=== PATIENT | male | born 1945 | race Caucasian/White ===

== ENCOUNTER 2017-07-30 14:22 | Emergency (ER) | payer MEDICARE, OTHER ==
[2017-07-30] MEDS ORDERED: cefTRIAXone(*) 1 GM in NS 0.9% 50 ML* 50 ML IVPB ONE (14:31)
[2017-07-30] MEDS ORDERED: NS 0.9% 1000 ML* 2,500 ML IV ONE (14:31)
[2017-07-30 14:58] LABS: ABS Basophils 0 10^3/ul (0-0.2); ABS Eosinophils 0.4 10^3/ul (0-0.6); ABS Lymphocytes 1.3 10^3/ul (1.0-4.8); ABS Monocytes 0.7 10^3/ul (0-0.8); ABS Neutrophils 5.2 10^3/ul (1.5-7.7); ABS Nucleated RBC 0 10^3/ul; Eosinophil % 5.1 % (0-6); Hematocrit 35 % (42-52); Hemoglobin 11.2 g/dl (14.0-18.0); Lymphocyte % 17.7 % (25-47); Mean Corpuscular HGB Conc 32 g/dl (31-36); Mean Corpuscular Hemoglobin 24 pg (27-31); Mean Corpuscular Volume 76 fL (80-94); Mean Platelet Volume 7 um3 (7.4-10.4); Nucleated Red Blood Cells % 0; Platelet Count 217 10^3/ul (150-450); Red Cell Distribution Width 16 % (10.5-15); White Blood Count 7.6 10^3/ul (3.5-10.8)
[2017-07-30 15:07] LABS: INR 0.94 (0.77-1.02)
[2017-07-30 15:19] LABS: EGFR Non-African American 61.7 (>60)
[2017-07-30] MEDS ORDERED: Iodixanol* (CONTRAST) 320 MG/ML 100 ML SDV IV ONE (15:23)
--- NOTE | 2017-07-30 15:30 | RAD ---
INDICATION: Weakness COMPARISON: None. TECHNIQUE: Single AP portable view of the chest was obtained. FINDINGS: Image quality is compromised due to the relative inferiority of a portable chest x-ray. The heart and mediastinum exhibit normal size and contour. There are symmetrically low lung volumes which could be due to poor inspiratory effort. There is no evidence of a large pleural effusion. Visualized bones are normal for the patient's age. IMPRESSION: No radiographic evidence for acute cardiopulmonary abnormality on this portable chest x-ray.
--- NOTE | 2017-07-30 16:03 | RAD ---
Indication: Confusion, weight gain. Contrast: Administered 100.4 ml of VISAPAQUE 320 mg/ml CT of the chest was performed after IV contrast administration. CT of the abdomen and pelvis was performed after IV contrast administration with no oral contrast administered. Inferior thyroid lobes are unremarkable. There is no mediastinal or hilar adenopathy. The heart demonstrates no pericardial effusion. The trachea and major bronchi appear patent. There is some atelectasis noted in the lingula. No pleural fluid is identified. Tiny 2 mm calcification is noted in the right lower lobe. No alveolar consolidation is noted. Degenerative changes of the thoracic spine is noted. There is no evidence of rib fracture is noted. CT of the abdomen and pelvis demonstrates the liver to be normal in size. No focal lesions or intrahepatic ductal dilatation is noted. The gallbladder demonstrates calcified gallstones. No pericholecystic fluid or wall thickening is noted. The common duct is not dilated. The pancreas is atrophic without evidence of mass or pancreatic ductal dilatation. The spleen is normal in size. No adrenal lesions are noted. The kidneys demonstrate no hydronephrosis. Small cortical cyst is noted in the right kidney measuring 13 mm. Retroperitoneal adenopathy is noted. Retroaortic left renal vein is noted. No aneurysmal dilatation of the abdominal aorta is noted. CT of the pelvis demonstrates no pelvic adenopathy. Urinary bladder, prostate and seminal vesicles are unremarkable. No hernias are noted. The appendix is visualized and is normal. The bony structures are otherwise unremarkable. IMPRESSION: Cortical cysts right kidney. Cholelithiasis without biliary duct dilatation. Otherwise unremarkable CT of the chest, abdomen and pelvis.
[2017-07-30 16:26] LABS: Urine Appearance Clear; Urine Blood 2+ (Negative); Urine Color Yellow; Urine Ketones Negative (Negative); Urine Protein Negative (Negative); Urine Specific Gravity 1.024 (1.010-1.030); Urine Urobilinogen Negative (Negative)
[2017-07-30 18:57] VITALS: BP 148/76
--- NOTE | 2017-08-06 15:13 | ED ---
Edmund Jacobs Jennifer, scribed for Nomi Enciso MD on 07/30/17 at 1504 . Abdominal Pain/Male - HPI Summary HPI Summary: The patient is a 71 year old male who was brought to the ED by EMS for abdominal pain. The patient was confused in the ED and was not a good historian. EMS stated the patient has gained 19 pounds this month. LEVEL 5 CAVEAT: HPI limited due to patient confusion. - History of Current Complaint Chief Complaint: EDAbdPain Stated Complaint: WEAKNESS Time Seen by Provider: 07/30/17 14:52 Hx Obtained From: EMS Hx From Patient Unobtainable Due To: Other - Confusion Onset/Duration: Still Present Severity Initially: Mild Severity Currently: None Pain Intensity: 0 Pain Scale Used: 0-10 Numeric Location: Diffuse Aggravating Factor(s): Nothing Alleviating Factor(s): Nothing Associated Signs And Symptoms: Positive: Other - Weight gain - Allergies/Home Medications Allergies/Adverse Reactions: Allergies Allergy/AdvReac Type Severity Reaction Status Date / Time levofloxacin Allergy Unknown Verified 07/30/17 14:31 Reaction Details fabric softener Allergy Unknown Uncoded 07/30/17 14:31 Reaction Details ivory soap Allergy Unknown Uncoded 07/30/17 14:31 Reaction Details Home Medications: Home Medications Acetaminophen [Acetaminophen Extra Strength] 1,000 mg PO Q8H PRN 07/30/17 [ History Confirmed 07/30/17] Aspirin EC Low Dose* [Ecotrin EC Low Dose 81 MG*] 81 mg PO DAILY 07/30/17 [ History Confirmed 07/30/17] Benztropine TAB* [Cogentin TAB*] 0.5 mg PO BID 07/30/17 [History Confirmed 07/30] Cholecalciferol TAB* [Vitamin D TAB*] 2,000 units PO QAM 07/30/17 [History Confirmed 07/30/17] CloZAPine TAB* 150 mg PO QAM 07/30/17 [History Confirmed 07/30/17] CloZAPine TAB* 300 mg PO BEDTIME 07/30/17 [History Confirmed 07/30/17] Esomeprazole(NF) [NEXium(NF)] 20 mg PO DAILY 07/30/17 [History Confirmed ] Furosemide TAB* [Lasix TAB*] 20 mg PO DAILY 07/30/17 [History Confirmed 07/30/17 ] Haloperidol Decanoate [Haloperidol Decanoate 100] 100 mg IM .EVERY 4 WEEKS 07/30 [History Confirmed 07/30/17] Insulin GLARGINE(*) [Lantus(*)] 18 units SUBCUT QAM 07/30/17 [History Confirmed 07/30/17] Levothyroxine TAB* [Synthroid TAB*] 100 mcg PO QAM 07/30/17 [History Confirmed 07/30/17] Lubiprostone 24 MCG CAP (NF) [Amitiza (NF)] 24 mcg PO BID 07/30/17 [History Confirmed 07/30/17] Polyethylene Glycol 3350* [Miralax*] 17 gm PO DAILY PRN 07/30/17 [History Confirmed 07/30/17] Pravastatin (NF) [Pravachol (NF)] 20 mg PO EVERY OTHER DAY 07/30/17 [History Confirmed 07/30/17] Senna/Docusate (NF) [Sennokot-S] 2 tab PO BID 07/30/17 [History Confirmed ] glipiZIDE TAB* [Glucotrol TAB*] 5 mg PO QPM 07/30/17 [History Confirmed 07/30/17 ] glipiZIDE TAB* [Glucotrol TAB*] 15 mg PO QAM 07/30/17 [History Confirmed ] lamoTRIgine TAB(*) [LaMICtal TAB(*)] 75 mg PO TID 07/30/17 [History Confirmed ] PMH/Surg Hx/FS Hx/Imm Hx Infectious Disease History: Unable to Obtain/Confirm Infectious Disease History: Denies: Traveled Outside the [place] in Last 30 Days - Family History Known Family History: Positive: Unknown - Social History Alcohol Use: None Substance Use Type: Reports: None Smoking Status (MU): Unknown if Ever Smoked - Additional Comments History Additional Comments: LEVEL 5 CAVEAT: PMH limited due to patient confusion. Review of Systems Positive: Abdominal Pain Positive: Other - Confused, incoherent speech All Other Systems Reviewed And Are Negative: Yes - Comments Additional Review of Systems Comments: LEVEL 5 CAVEAT: ROS limited due to incoherent speech. Physical Exam - Summary Physical Exam Summary: Constitutional: Well-nourished. (-) Distressed Skin: Warm, Dry HENT: Normocephalic; Atraumatic Eyes: Conjunctiva normal Neck: Musculoskeletal ROM normal neck. (-) JVD, (-) Stridor, (-) Tracheal deviation Cardio: Rhythm regular, rate normal, Heart sounds normal; Intact distal pulses; The pedal pulses are 2+ and symmetric. Radial pulses are 2+ and symmetric. (-) Murmur Pulmonary/Chest wall: (-) Respiratory distress, Rhonchi in left lower lung field. Abd: Soft, Abdomen is Diffusely tender. Distended abdomen. (-) Guarding, (-) Rebound Musculoskeletal: 1+ pitting edema. Lymph: (-) Cervical adenopathy LEVEL 5 CAVEAT: Physical Exam limited due to incoherent speech. Triage Information Reviewed: Yes Vital Signs On Initial Exam: Initial Vitals Temp Pulse Resp BP Pulse Ox 98.3 F 100 25 152/81 97 07/30/17 14:27 07/30/17 14:27 07/30/17 14:27 07/30/17 14:27 07/30/17 14:27 Vital Signs Reviewed: Yes Diagnostics - Vital Signs Vital Signs Temp Pulse Resp BP Pulse Ox 07/30/17 14:51 95 30 95 07/30/17 14:31 96 07/30/17 14:27 98.3 F 100 25 152/81 97 - Laboratory Lab Results: Lab Results 07/30/17 07/30/17 07/30/17 Range/Units 14:44 14:44 14:44 WBC 7.6 (3.5-10.8) 10^3/ul RBC 4.60 (4.0-5.4) 10^6/ul Hgb 11.2 L (14.0-18.0) g/dl Hct 35 L (42-52) % MCV 76 L (80-94) fL MCH 24 L (27-31) pg MCHC 32 (31-36) g/dl RDW 16 H (10.5-15) % Plt Count 217 (150-450) 10^3/ul MPV 7 L (7.4-10.4) um3 Neut % (Auto) 67.9 (38-83) % Lymph % (Auto) 17.7 L (25-47) % [place] % (Auto) 8.8 (1-9) % Eos % (Auto) 5.1 (0-6) % Baso % (Auto) 0.5 (0-2) % Absolute Neuts (auto) 5.2 (1.5-7.7) 10^3/ul Absolute Lymphs (auto) 1.3 (1.0-4.8) 10^3/ul Absolute Monos (auto) 0.7 (0-0.8) 10^3/ul Absolute Eos (auto) 0.4 (0-0.6) 10^3/ul Absolute Basos (auto) 0 (0-0.2) 10^3/ul Absolute Nucleated RBC 0 10^3/ul Nucleated RBC % 0 INR (Anticoag Therapy) 0.94 (0.77-1.02) APTT 59.5 H (26.0-36.3) seconds Sodium 136 (133-145) mmol/L Potassium 3.8 (3.5-5.0) mmol/L Chloride 102 (101-111) mmol/L Carbon Dioxide 28 (22-32) mmol/L Anion Gap 6 (2-11) mmol/L BUN 21 (6-24) mg/dL Creatinine 1.16 (0.67-1.17) mg/dL Est GFR ( Amer) 79.4 (>60) Est GFR (Non-Af Amer) 61.7 (>60) BUN/Creatinine Ratio 18.1 (8-20) Glucose 226 H (70-100) mg/dL Lactic Acid (0.5-2.0) mmol/L Calcium 9.4 (8.6-10.3) mg/dL Total Bilirubin 0.30 (0.2-1.0) mg/dL AST 17 (13-39) U/L ALT 17 (7-52) U/L Alkaline Phosphatase 115 H (34-104) U/L Troponin I 0.00 (<0.04) ng/mL B-Natriuretic Peptide ( - 100) pg/mL Total Protein 7.1 (6.4-8.9) g/dL Albumin 4.0 (3.2-5.2) g/dL Globulin 3.1 (2-4) g/dL Albumin/Globulin Ratio 1.3 (1-3) Urine Color Urine Appearance Urine pH (5-9) Ur Specific [place] (1.010-1.030) Urine Protein (Negative) Urine Ketones (Negative) Urine Blood (Negative) Urine Nitrate (Negative) Urine Bilirubin (Negative) Urine Urobilinogen (Negative) Ur Leukocyte Esterase (Negative) Urine WBC (Auto) (Absent) Urine RBC (Auto) (Absent) Urine Bacteria (Absent) Urine Glucose (Negative) 07/30/17 07/30/17 07/30/17 Range/Units 14:44 14:44 16:05 WBC (3.5-10.8) 10^3/ul RBC (4.0-5.4) 10^6/ul Hgb (14.0-18.0) g/dl Hct (42-52) % MCV (80-94) fL MCH (27-31) pg MCHC (31-36) g/dl RDW (10.5-15) % Plt Count (150-450) 10^3/ul MPV (7.4-10.4) um3 Neut % (Auto) (38-83) % Lymph % (Auto) (25-47) % [place] % (Auto) (1-9) % Eos % (Auto) (0-6) % Baso % (Auto) (0-2) % Absolute Neuts (auto) (1.5-7.7) 10^3/ul Absolute Lymphs (auto) (1.0-4.8) 10^3/ul Absolute Monos (auto) (0-0.8) 10^3/ul Absolute Eos (auto) (0-0.6) 10^3/ul Absolute Basos (auto) (0-0.2) 10^3/ul Absolute Nucleated RBC 10^3/ul Nucleated RBC % INR (Anticoag Therapy) (0.77-1.02) APTT (26.0-36.3) seconds Sodium (133-145) mmol/L Potassium (3.5-5.0) mmol/L Chloride (101-111) mmol/L Carbon Dioxide (22-32) mmol/L Anion Gap (2-11) mmol/L BUN (6-24) mg/dL Creatinine (0.67-1.17) mg/dL Est GFR ( Amer) (>60) Est GFR (Non-Af Amer) (>60) BUN/Creatinine Ratio (8-20) Glucose (70-100) mg/dL Lactic Acid 1.4 (0.5-2.0) mmol/L Calcium (8.6-10.3) mg/dL Total Bilirubin (0.2-1.0) mg/dL AST (13-39) U/L ALT (7-52) U/L Alkaline Phosphatase (34-104) U/L Troponin I (<0.04) ng/mL B-Natriuretic Peptide 20 ( - 100) pg/mL Total Protein (6.4-8.9) g/dL Albumin (3.2-5.2) g/dL Globulin (2-4) g/dL Albumin/Globulin Ratio (1-3) Urine Color Yellow Urine Appearance Clear Urine pH 6.0 (5-9) Ur Specific [place] 1.024 (1.010-1.030) Urine Protein Negative (Negative) Urine Ketones Negative (Negative) Urine Blood 2+ H (Negative) Urine Nitrate Negative (Negative) Urine Bilirubin Negative (Negative) Urine Urobilinogen Negative (Negative) Ur Leukocyte Esterase Trace H (Negative) Urine WBC (Auto) Trace(0-5/hpf) (Absent) Urine RBC (Auto) Trace(0-2/hpf) (Absent) Urine Bacteria Absent (Absent) Urine Glucose Negative (Negative) 07/30/17 Range/Units 18:50 WBC (3.5-10.8) 10^3/ul RBC (4.0-5.4) 10^6/ul Hgb (14.0-18.0) g/dl Hct (42-52) % MCV (80-94) fL MCH (27-31) pg MCHC (31-36) g/dl RDW (10.5-15) % Plt Count (150-450) 10^3/ul MPV (7.4-10.4) um3 Neut % (Auto) (38-83) % Lymph % (Auto) (25-47) % [place] % (Auto) (1-9) % Eos % (Auto) (0-6) % Baso % (Auto) (0-2) % Absolute Neuts (auto) (1.5-7.7) 10^3/ul Absolute Lymphs (auto) (1.0-4.8) 10^3/ul Absolute Monos (auto) (0-0.8) 10^3/ul Absolute Eos (auto) (0-0.6) 10^3/ul Absolute Basos (auto) (0-0.2) 10^3/ul Absolute Nucleated RBC 10^3/ul Nucleated RBC % INR (Anticoag Therapy) (0.77-1.02) APTT (26.0-36.3) seconds Sodium (133-145) mmol/L Potassium (3.5-5.0) mmol/L Chloride (101-111) mmol/L Carbon Dioxide (22-32) mmol/L Anion Gap (2-11) mmol/L BUN (6-24) mg/dL Creatinine (0.67-1.17) mg/dL Est GFR ( Amer) (>60) Est GFR (Non-Af Amer) (>60) BUN/Creatinine Ratio (8-20) Glucose (70-100) mg/dL Lactic Acid 1.2 (0.5-2.0) mmol/L Calcium (8.6-10.3) mg/dL Total Bilirubin (0.2-1.0) mg/dL AST (13-39) U/L ALT (7-52) U/L Alkaline Phosphatase (34-104) U/L Troponin I (<0.04) ng/mL B-Natriuretic Peptide ( - 100) pg/mL Total Protein (6.4-8.9) g/dL Albumin (3.2-5.2) g/dL Globulin (2-4) g/dL Albumin/Globulin Ratio (1-3) Urine Color Urine Appearance Urine pH (5-9) Ur Specific [place] (1.010-1.030) Urine Protein (Negative) Urine Ketones (Negative) Urine Blood (Negative) Urine Nitrate (Negative) Urine Bilirubin (Negative) Urine Urobilinogen (Negative) Ur Leukocyte Esterase (Negative) Urine WBC (Auto) (Absent) Urine RBC (Auto) (Absent) Urine Bacteria (Absent) Urine Glucose (Negative) Result Diagrams: 07/30/17 14:44 07/30/17 14:44 Lab Statement: Any lab studies that have been ordered have been reviewed, and results considered in the medical decision making process. - Radiology CXR Xray Interpretation: No Acute Changes - No radiographic evidence for acute cardiopulmonary abnormality on this portable chest x-ray. Dr. Enciso has reviewed this report. Radiology Interpretation Completed By: Radiologist - CT Chest/Abd/Pel CT CT Interpretation: No Acute Changes - Cortical cysts right kidney. Cholelithiasis without biliary duct dilatation. Otherwise unremarkable CT of the chest, abdomen and pelvis. Dr. Enciso has reviewed this report. CT Interpretation Completed By: Radiologist Re-Evaluation - Re-Evaluation First Eval Re-Evaluation Time: 17:30 Change: Improved Comment: Repeat abdominal exam showed non-tenderness when distractured. exam showed no testicular findings. Large stool burden on CT. Abdominal Pain Fem Course/Dx - Course Assessment/Plan: The patient is a 71 year old male who was brought to the ED by EMS for abdominal pain. The patient did not have coherent speech in the ED today. In the ED course the patient was given IV fluids and Rocephin. Bloodwork and Urinalysis were obtained. CXR was obtained. CT Chest/Abd/Pel showed Cortical cysts right kidney. Cholelithiasis without biliary duct dilatation. Otherwise unremarkable CT of the chest, abdomen and pelvis. Given the patients extensive leg edema and rhonchi, we will not administer sepsis fluids to him. Repeat abdominal exam showed non-tenderness when distracted. exam showed no testicular findings. Large stool burden on CT. The patient is diagnosed with constipation and urinary retention. Dr. Susu Zhu is at bedside and will coordinate his follow-up. The patient will have a bowel regimen and urology follow-up at [facility]. - Diagnoses Provider Diagnoses: Constipation, Urinary retention - Provider Notifications Discussed Care Of Patient With: Susu Zhu Time Discussed With Above Provider: 17:35 Instructed by Provider To: Other - Dr. Zhu will coordinate the patient's follow-up. Discharge - Discharge Plan Condition: Stable Disposition: HOME Patient Education Materials: Constipation (ED), Urinary Retention in Men (ED) Referrals: [facility] [Outside] Kevin Oh MD [Medical Doctor] - Bebeto Dumas MD [Medical Doctor] - Additional Instructions: Please follow your bowel regimen and follow up with Urology at [facility]. Return to the Emergency Department for any new or worsening symptoms. The documentation as recorded by the Edmund gold Jennifer accurately reflects the service I personally performed and the decisions made by , Nomi Enciso MD.
== END 2017-07-30 18:56 | disposition home or self-care (01) ==
LOC: ED 14:22
DX: K59.00 Constipation, unspecified (principal); R33.9 Retention of urine, unspecified; N28.1 Cyst of kidney, acquired; K80.80 Other cholelithiasis without obstruction; Z88.3 Allergy status to other anti-infective agents
CPT/HCPCS: 36415; 71045; 71260; 74177; 80053; 81003; 81015; 83605; 83880; 84484; 85025; 85610; 85730; 87040; 87077; 87086; 96374; 99284; J0696; Q9967

== ENCOUNTER 2018-11-11 08:45 | Inpatient (IN) | payer MEDICARE, MEDICAID ==
--- NOTE | 2018-11-11 10:30 | ED ---
Altered Mental Status - HPI Summary HPI Summary: Pt is a 72 y/o M presenting to the ED brought in by EMS with a chief complaint of altered mental status. LEVEL 5 CAVEAT: Pts full hx and physical are unobtainable d/t pts current mental status. He comes from [facility] who states that he has been out of his Clozapine sine 10/27, and yesterday they noticed he was more sleepy and out of it. They thought that he had aspirated d/ t vomiting yesterday. They deny any recent trauma and note that he has been more agitated. Home Medications Medication Instructions Recorded Confirmed Type Acetaminophen [Acetaminophen Extra 1,000 mg PO Q8H PRN 07/30/17 11/11/18 History Strength] Aspirin EC TAB* [Ecotrin EC Low 81 mg PO DAILY 07/30/17 11/11/18 History Dose 81 MG*] Benztropine TAB* [Cogentin TAB*] 0.5 mg PO BID 07/30/17 11/11/18 History Cholecalciferol TAB* [Vitamin D 2,000 units PO QAM 07/30/17 11/11/18 History TAB*] CloZAPine TAB* 150 mg PO QAM 07/30/17 11/11/18 History CloZAPine TAB* 300 mg PO BEDTIME 07/30/17 11/11/18 History Furosemide TAB* [Lasix TAB*] 20 mg PO DAILY 07/30/17 11/11/18 History Haloperidol Decanoate [Haloperidol 100 mg IM .EVERY 4 WEEKS 07/30/17 11/11/18 History Decanoate 100] Insulin GLARGINE(*) [Lantus(*)] 35 units SUBCUT BID 07/30/17 11/11/18 History Levothyroxine TAB* [Synthroid TAB*] 100 mcg PO QAM 07/30/17 11/11/18 History Lubiprostone 24 MCG CAP (NF) 24 mcg PO BID 07/30/17 11/11/18 History [Amitiza (NF)] Polyethylene Glycol 3350* 17 gm PO DAILY PRN 07/30/17 11/11/18 History [Miralax*] Pravastatin (NF) [Pravachol (NF)] 20 mg PO EVERY OTHER DAY 07/30/17 11/11/18 History Senna/Docusate (NF) [Sennokot-S] 2 tab PO BID 07/30/17 11/11/18 History lamoTRIgine TAB(*) [LaMICtal 75 mg PO TID 07/30/17 11/11/18 History TAB(*)] Bisacodyl SUPP* [Dulcolax Supp*] 1 supp ID DAILY PRN 11/11/18 11/11/18 History Ferrous Sulfate 1 tab PO DAILY 11/11/18 11/11/18 History Insulin Lispro [Humalog Daniel 12 units SUBCUT SEE INSTRUCTIONS 11/11/18 History Kwikpen] Magnesium Hydroxide [Milk of 30 ml PO Q4H PRN 11/11/18 11/11/18 History Magnesia] Omeprazole 20 mg PO DAILY 11/11/18 11/11/18 History Ondansetron TAB* [Zofran 4 MG Tab*] 4 mg PO Q12H PRN 11/11/18 11/11/18 History risperiDONE [Risperidone] 1 mg PO BID 11/11/18 11/11/18 History - History Of Current Complaint Chief Complaint: EDAltMentalStatus Stated Complaint: AMS PER EMS Time Seen by Provider: 11/11/18 09:30 Hx Obtained From: EMS Hx From Patient Unobtainable Due To: Altered Mental Status Onset/Duration: Still Present, Gradually Timing: Constant, Lasting Days Severity Initially: Moderate Severity Currently: Moderate Character: Confusion, Agitation Aggravating Factor(s): Unknown, Medication Change Alleviating Factor(s): Unknown Associated Signs And Symptoms: Positive: Vomiting. Negative: Recent Trauma - Allergies/Home Medications Allergies/Adverse Reactions: Allergies Allergy/AdvReac Type Severity Reaction Status Date / Time levofloxacin Allergy Unknown Verified 11/11/18 08:59 Reaction Details fabric softener Allergy Unknown Uncoded 11/11/18 08:59 Reaction Details ivory soap Allergy Unknown Uncoded 11/11/18 08:59 Reaction Details Home Medications: Home Medications Bisacodyl SUPP* [Dulcolax Supp*] 1 supp ID DAILY PRN 11/11/18 [History Confirmed 11/11/18] Ferrous Sulfate 1 tab PO DAILY 11/11/18 [History Confirmed 11/11/18] Insulin Lispro [Humalog Daniel Kwikpen] 12 units SUBCUT SEE INSTRUCTIONS [History Confirmed 11/11/18] Magnesium Hydroxide [Milk of Magnesia] 30 ml PO Q4H PRN 11/11/18 [History Confirmed 11/11/18] Omeprazole 20 mg PO DAILY 11/11/18 [History Confirmed 11/11/18] Ondansetron TAB* [Zofran 4 MG Tab*] 4 mg PO Q12H PRN 11/11/18 [History Confirmed 11/11/18] risperiDONE [Risperidone] 1 mg PO BID 11/11/18 [History Confirmed 11/11/18] PMH/Surg Hx/FS Hx/Imm Hx Previously Healthy: Yes Endocrine/Hematology History: Reports: Hx Diabetes Respiratory History: Reports: Hx Sleep Apnea Infectious Disease History: Unable to Obtain/Confirm Infectious Disease History: Denies: Traveled Outside the [place] in Last 30 Days - Family History Known Family History: Positive: Unknown - Social History Lives: [facility] Alcohol Use: None Alcohol Amount: unk 11/11/18 Hx Substance Use: No Substance Use Type: Reports: None Substance Use Comment - Amount & Last Used: k 11/11/18 Smoking Status (MU): Unknown if Ever Smoked Review of Systems - ROS Summary Review of Systems Summary: LEVEL 5 CAVEAT: Pts full hx and physical are unobtainable d/t pts current mental status Positive: Other - potential aspiration Positive: Vomiting Positive: Other - confusion, agitation All Other Systems Reviewed And Are Negative: No Physical Exam - Summary Physical Exam Summary: Appearance: Appears to be sleeping. Moans when extremities are moved and when abd is palpated. Wearing adult brief. Skin: Warm, color reflects adequate perfusion, dry. Erythema of L knee and anterior tibia on lateral side, [id number]. Head: Normal Head/Face inspection, atraumatic Eyes: Conjunctiva clear, pupils are pinpoint. ENT: Poor dentition, multiple missing teeth. Neck: Supple, no nodes, no JVD Respiratory: Lungs clear, no respiratory distress, snoring respirations, 99% SaO2 on room air Cardio: RRR, No murmur, pulses normal, brisk capillary refill Abdomen: Soft, nontender, non-distended, no rebound, no guarding, no masses. Bowel sounds: Present Musculoskeletal: Strength Intact/ROM intact, no calf tenderness, no edema. Psychological: Normal Neuro: Alert, muscle tone normal, no focal deficit Triage Information Reviewed: Yes Vital Signs On Initial Exam: Initial Vitals Pulse Pulse Ox 93 99 11/11/18 08:52 11/11/18 08:52 Vital Signs Reviewed: Yes Completion Of Physical Exam Limited Due To: Level 5 Diagnostics - Vital Signs Vital Signs Temp Pulse Resp BP Pulse Ox 11/11/18 09:51 81 100/57 98 11/11/18 09:21 84 92/64 98 11/11/18 09:00 89 98 11/11/18 08:53 96.1 F 90 20 108/64 100 11/11/18 08:52 93 99 - Laboratory Result Diagrams: 11/11/18 10:24 11/11/18 10:24 Lab Statement: Any lab studies that have been ordered have been reviewed, and results considered in the medical decision making process. - Radiology CXR Radiology Interpretation Completed By: Radiologist Summary of Radiographic Findings: No active cardiopulmonary disease is noted. ED physician has reviewed this report. - EKG 1020 Cardiac Rate: NL - 82 BPM EKG Rhythm: Sinus Rhythm EKG Comparison: Other - No prior to compare Summary of EKG Findings: An EKG at 1020 reveals a sinus rhythm of with 1st degree AV block (218), NORMAL IVCT, prolonged QTc. Q in leads 2 and 3 AVF. No acute changes. 1218 Cardiac Rate: NL - 75bpm EKG Rhythm: Sinus Rhythm ST Segment: Normal Ectopy: None Summary of EKG Findings: EKG at 1218 shows NSR at 75bpm with 1st degree AV block (210), nml IV CT, prolonged QTc, Q-waves in II, III, and aVF. No acute changes compared with EKG from 1020 this date. ED MD has reviewed and interpreted this report. Re-Evaluation - Re-Evaluation First Eval Re-Evaluation Time: 11:16 Change: Unchanged Comment: Pt's Troponin was a .63 during the labratory results. Dr. Graham requested having the lab verify the troponin levels. second eval Re-Evaluation Time: 12:20 Change: Unchanged Comment: The pt remains a level 5 caveat d/t AMS and current sleeping status. The pt will be admitted to [facility] [place]. Altered Mental Statu Course/Dx - Course Course Of Treatment: Pt is a 72 y/o M presenting to the ED brought in by EMS with a chief complaint of altered mental status. LEVEL 5 CAVEAT: Pts full hx and physical are unobtainable d/t pts current mental status. Pt comes from [facility] and has been out of his Clozapine since 10/27, and yesterday they noticed him be more agitated and confused. He also vomited yesterday and staff were concerned about aspiration. An EKG at 1020 reveals a sinus rhythm of with 1st degree AV block (218), NORMAL IVCT, prolonged QTc. Q in leads 2 and 3 AVF. No acute changes. CXR shows no active cardiopulmonary disease. The pt's first troponin is 0.63, and his second troponin was 0.69. Pts hematology shows WBC of 14.0, Hgb of 13.9. His INR is 1.15. His chemistry shows CO2 of 21, Anion gap of 15, AST of 9, Alkaline Phosphate of 118, and total Creatinine Kinase of 1075. His urine shows 1+ protein, 1+ leukocyte esterase, 3+ WBC, 2+ ketones, and present hyaline casts. All other lab work WNL. I spoke with Dr. Aguilar who will be accepting the pt to [facility] [place]. EKG at 1218 shows NSR at 75bpm with 1st degree AV block (210), nml IV CT, prolonged QTc, Q-waves in II, III, and aVF. No acute changes compared with EKG from 1020 this date. ED MD has reviewed and interpreted this report. - Diagnoses Provider Diagnoses: Altered mental status, Elevated troponin - Critical Care Time Critical Care Time: 30-74 min - 30minutes Discharge - Sign-Out/Discharge Documenting (check all that apply): Patient Departure - Discharge Plan Condition: Stable Disposition: ADMITTED TO [facility] Referrals: Monica Flores DO [Primary Care Provider] - - Attestation Statements Document Initiated by Scribe: Yes Documenting Scribe: Sandra Ansari Provider For Whom Errol is Documenting (Include Credential): Dr. Yue Graham MD. Scribe Attestation: Sandra Jacobs, anabellibed for Dr. Yue Graham MD. on 11/11/18 at 1431. Status of Scribe Document: Ready
[2018-11-11 10:47] LABS: ABS Monocytes 0.9 10^3/ul (0-0.8); ABS Neutrophils 12.1 10^3/ul (1.5-7.7); Hematocrit 42 % (42-52); Hemoglobin 13.9 g/dL (14.0-18.0); Lymphocyte % 7.2 %; Mean Corpuscular HGB Conc 33 g/dL (31-36); Mean Corpuscular Hemoglobin 28 pg (27-31); Mean Corpuscular Volume 86 fL (80-94); Mean Platelet Volume 7.4 fL (7.4-10.4); Platelet Count 278 10^3/uL (150-450); Red Blood Count 4.89 10^6 /uL (4.18-5.48); Red Cell Distribution Width 14 % (10.5-15)
[2018-11-11 10:51] LABS: INR 1.15 (0.82-1.09)
[2018-11-11 10:57] LABS: Troponin I 0.63 ng/mL (<0.04)
[2018-11-11 10:58] LABS: ALT 27 U/L (7-52); AST 49 U/L (13-39); Albumin 3.8 g/dL (3.2-5.2); Albumin/Globulin Ratio 1.3 (1-3); Alkaline Phosphatase 118 U/L (34-104); Anion Gap 15 mmol/L (2-11); BUN/Creatinine Ratio 16.8 (8-20); Blood Urea Nitrogen 19 mg/dL (6-24); CO2 Carbon Dioxide 21 mmol/L (22-32); Calcium 9.3 mg/dL (8.6-10.3); Chloride 105 mmol/L (101-111); Creatine Kinase 1075 U/L (10-223); EGFR African American 76.8 (>60); EGFR Non-African American 63.4 (>60); Glucose 83 mg/dL (70-100); Potassium 3.8 mmol/L (3.5-5.0); Sodium 141 mmol/L (135-145); Total Protein 6.8 g/dL (6.4-8.9)
[2018-11-11] MEDS ORDERED: NS 0.9% 1000 ML** 1,000 ML IV SCH ×2 (11:00→13:45)
[2018-11-11 11:04] LABS: Urine Appearance Clear; Urine Bacteria Absent (Absent); Urine Bilirubin Negative (Negative); Urine Blood Negative (Negative); Urine Color Amber; Urine Glucose Negative (Negative); Urine Ketones 2+ (Negative); Urine Nitrite Negative (Negative); Urine Protein 1+(30 mg/dL) (Negative); Urine Red Blood Cell Trace(0-2/hpf) (Absent); Urine Specific Gravity 1.023 (1.010-1.030); Urine Urobilinogen Negative (Negative); Urine White Blood Cell 3+(>20/hpf) (Absent)
[2018-11-11 11:21] LABS: Alcohol < 10 mg/dL (<10); Salicylate < 2.50 mg/dL (<30)
[2018-11-11 11:24] LABS: Urine Benzodiazepine Screen None Detected (None Detect); Urine Opiates Screen None Detected (None Detect)
[2018-11-11 11:38] LABS: Acetaminophen 1 mcg/mL
[2018-11-11 11:58] LABS: Troponin I 0.69 ng/mL (<0.04)
[2018-11-11] MEDS ORDERED: Acetaminophen TAB* 325 MG PO PRN (13:41)
[2018-11-11] MEDS: D5NS 0.9% 1000 ML BAG* 1,000 ML IV SCH (14:35)
--- NOTE | 2018-11-11 15:01 | HP ---
CC: Nati Stock * HISTORY AND PHYSICAL: DATE OF ADMISSION: 11/11/18 PROVIDER: Renetta Oropeza NP PRIMARY CARE PROVIDER: Nati Stock. ATTENDING PHYSICIAN WHILE IN THE HOSPITAL: Dr. Mustapha Aguilar * (dictated by Renetta Oropeza NP). CHIEF COMPLAINT: Altered mental status. HISTORY OF PRESENT ILLNESS: Mr. Bell is a 72-year-old male with a past medical history significant for anemia, bipolar disorder with severe manic psychotic features, dysphagia, hypertension, hypothyroid, generalized muscle weakness, seizures, history of urinary retention, urinary tract infections, GERD, legally blind and type 2 diabetes who currently resides at [facility]. The patient is lethargic and unable to answer questions. History of present illness was obtained from his senior care records in the ER chart. Per the senior care record, the patient has been taking Clozaril for several years and on 10/27/18, he ran out and was unable to get it filled due to the new laws for prescribers. Last night, the medication was available and the patient was given 300 mg, like his previous dose. Shortly after taking the medication, the patient fell asleep. It was reported that the patient had to be suctioned and that he has not been worse since taking the medication last evening. The patient's O2 saturations were down to 90% and at that time, he was placed on 2 L of nasal cannula. At baseline, it is reported from the senior care that he is alert and delusional. His Clozaril 300 mg was given at 21:57 last p.m. Vital signs at the senior care: Blood pressure was 88/64, heart rate was 82, temperature was 97.3, and respirations were 20. On arrival to the emergency room, the patient had routine lab work drawn. He was noted to be lethargic. care home denied any recent traumas, other than the patient had been more agitated. Routine lab work in the Emergency had shown leukocytosis with white count of 14,000 and an elevated troponin of 0.63. Due to his altered mental status and elevated troponin, we were asked to see and evaluate the patient for admission. PAST MEDICAL HISTORY: Significant for: 1. Anemia. 2. Bipolar disorder with severe manic psychosis. 3. Dysphagia. 4. History of hypertension. 5. Hypothyroid. 6. Muscle weakness. 7. Other seizures. 8. Urinary retention and history of urinary tract infections. 9. Antiphospholipid syndrome. 10. Constipation. 11. Gastroesophageal reflux. 12. Legally blind. 13. Hypercholesterolemia. 14. Type 2 diabetes. PAST SURGICAL HISTORY: Unknown. CURRENT MEDICATIONS: At [facility]: 1. Risperdal 1 mg twice daily. 2. Haloperidol 2 mg IM onetime order for severe agitation. 3. Clonazepam 150 mg p.o. in the morning, 300 mg at bedtime. 4. Zofran 4 mg p.o. q.12 hours as needed for nausea. 5. Ferrous sulfate 325 mg p.o. daily. 6. Humalog 12 units after meals, hold for p.o. intake less than 50%. 7. Lantus 35 units 2 times a day. 8. Synthroid 100 mcg daily. 9. Omeprazole 20 mg daily. 10. Lasix 20 mg daily. 11. Milk of Magnesia 30 mL q.4 hours as needed for constipation. 12. Haldol Decanoate solution 100 mg/mL 1 mL IM q.4 weeks on Saturday. 13. Amitiza 24 mcg 1 capsule 2 times a day. 14. Lamictal 75 mg 3 times a day for seizures. 15. Senna Plus 2 tabs 2 times a day. 16. Vitamin D 2000 units daily. 17. Pravachol 20 mg p.o. daily. 18. Tylenol 1000 mg every 8 hours as needed for pain. 19. Aspirin 81 mg p.o. daily. ALLERGIES: LEVOFLOXACIN, FABRIC SOFTENER, AND IVORY SOAP. FAMILY HISTORY: Unable to obtain due to mentation. SOCIAL HISTORY: The patient currently resides at [facility]. He does have an active MOLST form from his senior care chart which specifies DNR and DNI. REVIEW OF SYSTEMS: The patient is lethargic. Speech is garbled, at times he is able to make clear words. When asked about being admitted to the hospital, he responds, no clearly, but is unable to respond to other questioning. He has no grimacing with palpation of his abdomen. His skin is without rashes or lesions. The rest of the review of systems was unable to complete due to the patient's mentation. PHYSICAL EXAMINATION GENERAL: At this time, Mr. Bell is a 72-year-old male. He is lethargic, resting on the stretcher in the emergency room. His respirations are easy and even. He does withdraw to sternal rub and does swat at staff when repositioning in the bed. He does respond NO when ask if he has chest pain. He clear states NO when asked if he would want to have CPR, but then returns to a drowsy state. VITAL SIGNS: Blood pressure 110/72, heart rate 79, respirations 10, O2 saturation 97%, temperature was 96.1 on arrival. HEENT: Head is atraumatic, normocephalic. Eyes: EOMs are intact. Pupils are 1 mm and reactive to light. Mucous membranes are dry. NECK: Supple. CARDIAC: S1, S2, regular rate and rhythm. No murmurs, rubs, or gallops. LUNGS: Clear to auscultation bilaterally. No wheezes, rales, or rhonchi. ABDOMEN: Soft and nontender. Bowel sounds are present x4. EXTREMITIES: He can move all 4 extremities. There is no clubbing or cyanosis. He does have ecchymosis noted to his left knee with superficial abrasions. SKIN: He does have ecchymosis to the left knee with superficial abrasions. No signs of infection. The skin is without rashes or lesions. NEUROLOGIC: The patient is lethargic. He does respond to sternal rub with withdrawing. The patient has minimal response to questioning. Speech is garbled at times. Responses at times are inappropriate. DIAGNOSTIC STUDIES/LAB DATA: His CBC, WBCs are 14.0, RBCs 4.89, hemoglobin 13.9, hematocrit is 42, platelet count is 278. INR is 1.15, sodium 141, potassium 3.8, chloride 105, carbon dioxide is 21, anion gap was 15, BUN was 19 , creatinine 1.13, glucose was 83 on arrival; repeat glucose at 1420 was 60, lactic acid was 1. ASTs were 49, ALTs were 27, alkaline phosphatase was 118, CK was 1075. Initial troponin was 0.63, repeat 0.69, next repeat is pending. Urine was within normal limits with the exception to protein was 1+, ketones were 2+, leukocyte esterase was 1+, wbc's were 3+, and hyaline casts were present. Urine tox was within normal limits, salicylates were less than 2.50, and alcohol was less than 10. He had a chest x-ray, radiologist's impression: No active cardiopulmonary disease. He did have an electrocardiogram, which shows low voltage, sinus rhythm at a rate of 74. He has had inverted P and T waves in V1 that are nonspecific. ASSESSMENT AND PLAN: Mr. Bell is a 72-year-old male with a past medical history significant for diabetes, anemia, bipolar with severe manic episodes of dysphagia, hypertension, hypothyroid, seizures, gastroesophageal reflux disease , and type 2 diabetes who was sent to the emergency room from [facility] for altered mental status, lethargy. He will be admitted inpatient to the ICU for: 1. Altered mental status. I suspect this could be related to acute toxic metabolic encephalopathy, suspect this is due to Clozaril. The patient had been on Clozaril for a long period of time and it was abruptly stopped on , when he ran out of the medication at [facility]. The medication was resumed last p.m. 11/10/18 at his original dose of 300 mg. According to UpToDate , it is recommended when restarting Clozaril that the medication be started at 12.5 mg p.o. daily and then titrated up over a period of weeks. I suspect that given the patient was given 300 mg last p.m., it is contributing to his lethargy and altered mental status. Within the differential is also cerebrovascular accident or seizures. The patient does have a history of seizures, he could be postictal from seizures. I will get a CT of the brain and an EEG. If there are positive findings on the EEG or CT, I will consult neurology at that time. I have placed a consultation to psychiatry for recommendations on further medication management of the patient's severe bipolar disorder as he is on multiple meds for bipolar at baseline. 2. Diabetes. The patient is hypoglycemic in the emergency room with a blood sugar of 60. He is lethargic and unable to eat at this time. I am going to place him on D5 normal saline at 100 cc per hour. I will place him in the ICU with fingersticks q.1 hour until the patient's mentation improves and he is able to tolerate the diet. I am going to hold his Lantus and Humalog at this time due to his level of sedation. 3. Elevated troponin. The patient does have an elevated troponin and according to UpToDate, abruptly restarting Clozaril can experience symptoms of myocarditis or cardiomyopathy. He can also experience symptoms of chest pain, tachycardia, palpitations, dyspnea, fever, flu-like symptoms, hypotension, and EKG changes. According to UpToDate, when restarting Clozaril after interruption of greater than 2 days it is recommended. therapy must be reinitiated at 12.5 mg once or twice daily to minimize the risk of hypertension, bradycardia, and syncope. If the dose is well tolerated at that time, it can be increased more rapidly than the initial titration unless cardiopulmonary arrest occurred during the initial titration, then retitrate with extreme caution. I suspect that his elevated troponin could be possibly related to receiving the 300 mg dose of Clozaril last evening. Within the differential could be acute coronary syndrome or pericardial effusion. The patient did have an EKG in the emergency room that shows low voltage. There are no significant ST changes on his EKG of elevations or depressions. Given the fact that the use of Clozaril can cause myocarditis, cardiomyopathy, there is a possibility that his elevated troponin could be related to the increased dose of Clozaril. If the patient's CT of the brain does not show any acute hemorrhage and the troponins continue to rise I will place the patient on 1 mg/ kg Lovenox dosing every 12 hours and consult cardiology . I will continue to trend his troponins. I will repeat an EKG at 6 p.m. tonight and in the a.m., I will get a transthoracic echocardiogram to evaluate the heart function. 5. Hypothyroid. We will continue his Synthroid at 100 mcg. 6. History of seizures. The patient currently takes Lamictal 75 mg p.o. t.i.d. I will continue the Lamictal at 75 mg t.i.d when the patient is alert enough to swallow medications. 7. FEN. He can have a consistent carb diet when his mentation improves. At this time, I will leave him n.p.o. 8. Code status. He is a DNR and DNI according to MOLST form from [facility]. 9. DVT prophylaxis he will be placed on lovenox. TIME SPENT: Time spent on this admission was approximately 60 minutes, greater than half that time was spent at the bedside reviewing events leading thus far to his hospitalization, performing physical exam, and reviewing my plan of care. I have discussed this with my attending, Dr. Mustapha Aguilar; he is in agreement with my plan. RENETTA OROPEZA, ARCHANA [id number]/CPS #: [id number]/CPS #: [id number] INGRID
[2018-11-11 15:23] LABS: Troponin I 0.68 ng/mL (<0.04)
[2018-11-11 18:05] LABS: Troponin I 0.73 ng/mL (<0.04)
--- NOTE | 2018-11-11 19:24 | HP ---
HISTORY AND PHYSICAL: ADDENDUM: HISTORY OF PRESENT ILLNESS: Mr. Bell is a 72-year-old male with a past medical history significant for anemia, bipolar disorder with severe manic psychotic features, dysphagia, hypertension, hypothyroid, generalized muscle weakness, seizures, history of urinary retention, urinary tract infections, GERD, legally blind and type 2 diabetes who currently resides at [facility]. The patient is lethargic and unable to answer questions. History of present illness was obtained from his [place] [facility] records in the ER chart. Per the [place] [facility] record, the patient has been taking Clozaril for several years and on 10/27/18, he ran out and was unable to get it filled due to the new laws for prescribers. Last night, the medication was available and the patient was given 300 mg, like his previous dose. Shortly after taking the medication, the patient fell asleep. It was reported that the patient had to be suctioned and that he has not been worse since taking the medication last evening. The patient's O2 saturations were down to 90% and at that time, he was placed on 2 L of nasal cannula. At baseline, it is reported from the [place] [facility] that he is alert and delusional. His Clozaril 300 mg was given at 21:57 last p.m. Vital signs at the [place] [facility]: Blood pressure was 88/64, heart rate was 82, temperature was 97.3, and respirations were 20. On arrival to the emergency room, the patient had routine lab work drawn. He was noted to be lethargic. [facility] denied any recent traumas, other than the patient had been more agitated. Routine lab work in the Emergency had shown leukocytosis with white count of 14,000 and an elevated troponin of 0.63. Due to his altered mental status and elevated troponin, we were asked to see and evaluate the patient for admission. PAST MEDICAL HISTORY: Significant for: 1. Anemia. 2. Bipolar disorder with severe manic psychosis. 3. Dysphagia. 4. History of hypertension. 5. Hypothyroid. 6. Muscle weakness. 7. Other seizures. 8. Urinary retention and history of urinary tract infections. 9. Antiphospholipid syndrome. 10. Constipation. 11. Gastroesophageal reflux. 12. Legally blind. 13. Hypercholesterolemia. 14. Type 2 diabetes. PAST SURGICAL HISTORY: Unknown. CURRENT MEDICATIONS: At [facility]: 1. Risperdal 1 mg twice daily. 2. Haloperidol 2 mg IM onetime order for severe agitation. 3. Clonazepam 150 mg p.o. in the morning, 300 mg at bedtime. 4. Zofran 4 mg p.o. q.12 hours as needed for nausea. 5. Ferrous sulfate 325 mg p.o. daily. 6. Humalog 12 units after meals, hold for p.o. intake less than 50%. 7. Lantus 35 units 2 times a day. 8. Synthroid 100 mcg daily. 9. Omeprazole 20 mg daily. 10. Lasix 20 mg daily. 11. Milk of Magnesia 30 mL q.4 hours as needed for constipation. 12. Haldol Decanoate solution 100 mg/mL 1 mL IM q.4 weeks on Saturday. 13. Amitiza 24 mcg 1 capsule 2 times a day. 14. Lamictal 75 mg 3 times a day for seizures. 15. Senna Plus 2 tabs 2 times a day. 16. Vitamin D 2000 units daily. 17. Pravachol 20 mg p.o. daily. 18. Tylenol 1000 mg every 8 hours as needed for pain. 19. Aspirin 81 mg p.o. daily. ALLERGIES: LEVOFLOXACIN, FABRIC SOFTENER, AND IVORY SOAP. FAMILY HISTORY: Unable to obtain due to mentation. SOCIAL HISTORY: The patient currently resides at [facility]. He does have an active MOLST form from his [place] [facility] chart which specifies DNR and DNI. REVIEW OF SYSTEMS: The patient is lethargic. Speech is garbled, at times he is able to make clear words. When asked about being admitted to the hospital, he responds, no clearly, but is unable to respond to other questioning. He has no grimacing with palpation of his abdomen. His skin is without rashes or lesions. The rest of the review of systems was unable to complete due to the patient's mentation. PHYSICAL EXAMINATION GENERAL: At this time, Mr. Bell is a 72-year-old male. He is lethargic, resting on the stretcher in the emergency room. His respirations are easy and even. He does withdraw to sternal rub and does swat at staff when repositioning in the bed. VITAL SIGNS: Blood pressure 110/72, heart rate 79, respirations 10, O2 saturation 97%, temperature was 96.1 on arrival. HEENT: Head is atraumatic, normocephalic. Eyes: EOMs are intact. Pupils are 1 mm and reactive to light. Mucous membranes are dry. NECK: Supple. CARDIAC: S1, S2, regular rate and rhythm. No murmurs, rubs, or gallops. LUNGS: Clear to auscultation bilaterally. No wheezes, rales, or rhonchi. ABDOMEN: Soft and nontender. Bowel sounds are present x4. EXTREMITIES: He can move all 4 extremities. There is no clubbing or cyanosis. He does have ecchymosis noted to his left knee with superficial abrasions. SKIN: He does have ecchymosis to the left knee with superficial abrasions. No signs of infection. The skin is without rashes or lesions. NEUROLOGIC: The patient is lethargic. He does respond to sternal rub with withdrawing. The patient has minimal response to questioning. Speech is garbled at times. Responses at times are inappropriate. DIAGNOSTIC STUDIES/LAB DATA: His CBC, WBCs are 14.0, RBCs 4.89, hemoglobin 13.9, hematocrit is 42, platelet count is 278. INR is 1.15, sodium 141, potassium 3.8, chloride 105, carbon dioxide is 21, anion gap was 15, BUN was 19 , creatinine 1.13, glucose was 83 on arrival; repeat glucose at 1420 was 60, lactic acid was 1. ASTs were 49, ALTs were 27, alkaline phosphatase was 118, CK was 1075. Initial troponin was 0.63, repeat 0.69, next repeat is pending. Urine was within normal limits with the exception to protein was 1+, ketones were 2+, leukocyte esterase was 1+, wbc's were 3+, and hyaline casts were present. Urine tox was within normal limits, salicylates were less than 2.50, and alcohol was less than 10. He had a chest x-ray, radiologist's impression: No active cardiopulmonary disease. He did have an electrocardiogram, which shows low voltage, sinus rhythm at a rate of 74. He has had inverted P and T waves in V1 that are nonspecific. ASSESSMENT AND PLAN: Mr. Bell is a 72-year-old male with a past medical history significant for diabetes, anemia, bipolar with severe manic episodes of dysphagia, hypertension, hypothyroid, seizures, gastroesophageal reflux disease , and type 2 diabetes who was sent to the emergency room from [facility] for altered mental status, lethargy. He will be admitted inpatient to the ICU for: 1. Altered mental status. I suspect this could be related to acute metabolic toxic encephalopathy, likely due to Clozaril. The patient had been on Clozaril for a significant period of time and it was abruptly stopped on 10/27/18, when he ran out of the medication at [facility]. The medication was resumed last p.m. at his original dose of 300 mg. According to UpToDate, it is recommended when restarting Clozaril that the medication be started at 12.5 mg p.o. daily and then titrated up over a period of weeks. I suspect given the patient was given 300 mg last p.m., it is contributing to his lethargy and altered mental status. Within the differential is also cerebrovascular accident. I will get a CT of the brain and also within the differential could be seizures. As the patient does have a history of seizures, he could be postictal from seizures. I will get an EEG. If there are positive findings on the EEG or CT, I will consult neurology at that time. I have placed a consultation to psychiatry for recommendations on further medication management of the patient's severe bipolar disorder as he is on multiple meds for bipolar at baseline. 2. Diabetes. The patient is hypoglycemic in the emergency room with a blood sugar of 60. He is lethargic and unable to eat at this time. I am going to place him on D5 normal saline at 100 cc per hour. I will place him in the ICU with fingersticks q.1 hour until the patient's mentation improves and he is able to tolerate the diet. I am going to hold his Lantus and Humalog at this time due to his level of sedation. 3. Elevated troponin. The patient does have an elevated troponin and according to UpToDate, abruptly restarting Clozaril can experience symptoms of myocarditis or cardiomyopathy. He can also experience symptoms of chest pain, tachycardia, palpitations, dyspnea, fever, flu-like symptoms, hypotension, and EKG changes. According to UpToDate, when restarting Clozaril after interruption of greater than 2 days is recommended. 4. According to UpToDate, dosing interrupted for greater than 48 hours, therapy must be reinitiated at 12.5 mg once or twice daily to minimize the risk of hypertension, bradycardia, and syncope. If the dose is well tolerated at that time, it can be increased more rapidly than the initial titration unless cardiopulmonary arrest occurred during the initial titration, then retitrate with extreme caution. I suspect that his elevated troponin could be possibly related to receiving the 300 mg dose of Clozaril last evening. Within the differential could be acute coronary syndrome. The patient did have an EKG in the emergency room that shows low voltage. There are no significant ST changes on his EKG of elevations or depressions. Given the fact that the use of Clozaril can cause myocarditis, cardiomyopathy, there is a possibility that his elevated troponin could be related to the increased dose of Clozaril. Also within the differential is acute coronary syndrome. If the patient's CT of the brain does not show any acute hemorrhage, I will place the patient on 1 mg/kg Lovenox dosing every 12 hours. I will continue to trend his troponins. If his troponins continue to raise, I will consult cardiology. I will repeat an EKG at 6 p.m. tonight and in the a.m., I will get a transthoracic echocardiogram to evaluate the heart function. 5. Hypothyroid. We will continue his Synthroid at 100 mcg. 6. History of seizures. The patient currently takes Lamictal 75 mg p.o. t.i.d. I will continue the Lamictal at 75 mg t.i.d. 7. FEN. He can have a consistent carb diet when his mentation improves. At this time, I will leave him n.p.o. 8. Code status. He is a DNR and DNI. 9. DVT prophylaxis. . TIME SPENT: Time spent on this admission was approximately 60 minutes, greater than half that time was spent at the bedside reviewing events leading thus far to his hospitalization, performing physical exam, and reviewing my plan of care. I have discussed this with my attending, Dr. Mustapha Aguilar; he is in agreement with my plan. NISHANT COOL, FILM REPRODUCER [id number]/[facility] #: [id number] [facility]AN HOSPITALRiddhi
[2018-11-11] MEDS: Enoxaparin(*) 100 MG/ML SYR SUBCUT SCH (19:52)
[2018-11-11] MEDS ORDERED: Haloperidol INJ IV/IM* 5 MG/ML AMP IV SLOW PU PRN (20:29)
[2018-11-11 20:37] LABS: Troponin I 0.67 ng/mL (<0.04)
[2018-11-11 23:24] LABS: Troponin I 0.67 ng/mL (<0.04)
--- NOTE | 2018-11-12 00:15 | EEG ---
ELECTROENCEPHALOGRAPHY: DATE OF STUDY: 11/11/18 - ROOM #ICU-03 PATIENT OF: Renetta Oropeza NP CLINICAL PROBLEM: This is a 72-year-old man being evaluated for increased lethargy, agitation, and not being himself, following clozapine being running out. This study was done to rule out seizures. He has a history of bipolar disease, diabetes, and is legally blind. MEDICINES: Include acetaminophen. REPORT: With this patient awake, background cerebral activity consists of moderate amplitude posterior dominant 6 to 7 Hz rhythm, muscle movement artifact noted at times throughout this tracing. The patient never falls asleep. No epileptiform potentials, focal abnormalities, or major asymmetries of background were noted. CLINICAL IMPRESSION: This awake EEG is abnormal because of the diffuse slowing of background consistent with encephalopathy, but not specific as to etiology. [id number]/[facility] #: [id number] MTDD
[2018-11-12] MEDS ORDERED: Ziprasidone IM INJ* 20 MG/ML VIAL IM ONE (00:37)
[2018-11-12] MEDS: D5NS 0.9% 1000 ML BAG* 1,000 ML IV SCH (01:19)
[2018-11-12 05:25] LABS: ABS Lymphocytes 1.4 10^3/ul (1.0-4.8); ABS Monocytes 0.7 10^3/ul (0-0.8); ABS Neutrophils 6.6 10^3/ul (1.5-7.7); Hematocrit 40 % (42-52); Lymphocyte % 15.7 %; Mean Corpuscular HGB Conc 33 g/dL (31-36); Mean Corpuscular Hemoglobin 28 pg (27-31); Mean Corpuscular Volume 86 fL (80-94); Mean Platelet Volume 7.4 fL (7.4-10.4); Nucleated Red Blood Cells % 0.1; Platelet Count 281 10^3/uL (150-450); Red Blood Count 4.62 10^6 /uL (4.18-5.48); Red Cell Distribution Width 15 % (10.5-15); White Blood Count 8.8 10^3/uL (3.5-10.8)
[2018-11-12 05:43] LABS: BUN/Creatinine Ratio 15.3 (8-20); Blood Urea Nitrogen 15 mg/dL (6-24); CO2 Carbon Dioxide 22 mmol/L (22-32); Calcium 8.5 mg/dL (8.6-10.3); Cholesterol 155 mg/dL; EGFR African American 90.5 (>60); EGFR Non-African American 74.8 (>60); Glucose 73 mg/dL (70-100); HDL Cholesterol 31.5 mg/dL; LDL Cholesterol 97 mg/dL; Sodium 143 mmol/L (135-145); Triglycerides 133 mg/dL
[2018-11-12 05:48] LABS: CKMB ng/mL 14.8 ng/mL (0.6-6.3)
[2018-11-12 05:54] LABS: Chloride 112 mmol/L (101-111)
[2018-11-12 06:24] LABS: Anion Gap 9 mmol/L (2-11)
[2018-11-12] MEDS ORDERED: D10W 1000 ML BAG* 1,000 ML IV SCH (08:00)
[2018-11-12] MEDS: Enoxaparin(*) 100 MG/ML SYR SUBCUT SCH ×2 (08:34→22:54)
[2018-11-12] MEDS ORDERED: Magnesium Hydroxide LIQ* 30 ML UDC PO PRN (08:54)
[2018-11-12] MEDS ORDERED: Ondansetron TAB* 4 MG PO PRN (08:54)
[2018-11-12] MEDS ORDERED: Polyethylene Glycol 3350* 17 GM PACKET PO PRN (08:54)
[2018-11-12] MEDS ORDERED: Levothyroxine TAB* 100 MCG TAB PO SCH (09:00)
[2018-11-12] MEDS ORDERED: CMC:Pravastatin (NF) 20 MG TAB PO SCH (09:00)
[2018-11-12] MEDS: Benztropine TAB* 1 MG PO SCH ×2 (09:27→23:08)
[2018-11-12] MEDS: Pantoprazole TAB * 40 MG TAB PO SCH (09:30)
[2018-11-12] MEDS: Senna TAB PO SCH ×2 (09:30→23:07)
[2018-11-12] MEDS: Aspirin EC TAB* 81 MG TAB.EC PO SCH (09:31)
[2018-11-12] MEDS ORDERED: Potassium Chlor TAB* 20 MEQ TAB.ER PO ONE (09:36)
[2018-11-12] MEDS ORDERED: Insulin GLARGINE(*) 1 UNITS UNIT ONE (10:26)
[2018-11-12] MEDS: lamoTRIgine TAB(*) 25 MG PO SCH ×3 (10:30→23:06)
[2018-11-12] MEDS: CMC:Lubiprostone 24 MCG CAP (NF) PO SCH ×2 (10:31→23:05)
[2018-11-12] MEDS: risperiDONE TAB* 1 MG PO SCH ×2 (10:31→23:09)
[2018-11-12] MEDS: Insulin GLARGINE(*) 1 UNITS UNIT SUBCUT SCH ×2 (10:34→22:55)
[2018-11-12] MEDS: Insulin LISPRO* 1 UNITS UNIT SUBCUT SCH ×2 (12:05→16:47)
--- NOTE | 2018-11-12 14:03 | CONSULT ---
Consult Consult: Psychiatry attempted to assess Mr. Bell in ICU Room #3 this afternoon, however, he was clearly delirious and thrashing about his bed in protective mittens, unable to provide history. Psychiatry is aware of the situation with his clozapine and will take over the titration orders for this idiosyncratic antipsychotic. Will continue to follow. Await full consultation report once patient is able to participate more fully. Case discussed with attending, Dr. Pro.
[2018-11-12] MEDS ORDERED: Perflutren Lipid Microsphere* 3 ML VIAL ONE (14:41)
--- NOTE | 2018-11-12 15:30 | PN ---
Subjective Date of Service: 11/12/18 Interval History: HOSPITALIST PROGRESS NOTE Patient seen and examined at bedside. Care reviewed and d/w Kia Cummings RN. He is awake and agitated today. Has mittens on, but is trying to remove his monitor, O2 probe. Shouting unintelligible things, but when I asked if he wanted breakfast, he answer "Yes! Yes! Yes!". Family History: Unchanged from Admission Social History: Unchanged from Admission Past Medical History: Unchanged from Admission Objective Active Medications: Acetaminophen (Tylenol Tab*) 650 mg PO Q4H PRN PRN Reason: FEVER/PAIN Aspirin (Aspirin Ec Tab*) 81 mg PO DAILY [facility] Last Admin: 11/12/18 09:31 Dose: 81 mg Benztropine Mesylate (Cogentin Tab*) 0.5 mg PO BID [facility] Last Admin: 11/12/18 09:27 Dose: 0.5 mg Clozapine (Clozapine Tab*) 25 mg PO BEDTIME [facility] Docusate Sodium (Colace Cap*) 100 mg PO BID [facility] Enoxaparin Sodium (Lovenox(*)) 85 mg SUBCUT Q12H [facility] Last Admin: 11/12/18 08:34 Dose: 85 mg Insulin Glargine (Lantus(*)) 20 units SUBCUT BID [facility] Last Admin: 11/12/18 10:34 Dose: Not Given Insulin Human Lispro (Humalog*) 0 units SUBCUT AC [facility]; Protocol Last Admin: 11/12/18 12:05 Dose: 6 units Lamotrigine (Lamictal Tab(*)) 75 mg PO TID [facility] Last Admin: 11/12/18 14:51 Dose: 75 mg Levothyroxine Sodium (Synthroid Tab*) 100 mcg PO QAM [facility] Last Admin: 11/12/18 09:30 Dose: 100 mcg Lubiprostone (Amitiza (Nf)) 24 mcg PO BID [facility] Last Admin: 11/12/18 10:31 Dose: 24 mcg Magnesium Hydroxide (Milk Of Magnesia Liq*) 30 ml PO Q4H PRN PRN Reason: CONSTIPATION Ondansetron HCl (Zofran Tab*) 4 mg PO Q12H PRN PRN Reason: NAUSEA Pantoprazole Sodium (Protonix Tab*) 40 mg PO DAILY [facility] Last Admin: 11/12/18 09:30 Dose: 40 mg Polyethylene Glycol/Electrolytes (Miralax*) 17 gm PO DAILY PRN PRN Reason: CONSTIPATION Pravastatin Sodium (Pravachol (Nf)) 20 mg PO EVERY OTHER DAY [facility]; Protocol Last Admin: 11/12/18 10:30 Dose: 20 mg Risperidone (Risperdal*) 1 mg PO BID [facility] Last Admin: 11/12/18 10:31 Dose: 1 mg Senna (Senokot Tab*) 2 tab PO BID [facility] Last Admin: 11/12/18 09:30 Dose: 2 tab Vital Signs - 8 hr 11/12/18 11/12/18 11/12/18 08:00 09:00 10:00 Pulse Rate 76 75 94 Respiratory 17 18 19 Rate Blood Pressure 106/59 131/75 118/69 (mmHg) O2 Sat by Pulse 100 99 96 Oximetry 11/12/18 11:00 Pulse Rate 81 Respiratory 16 Rate Blood Pressure 139/85 (mmHg) O2 Sat by Pulse 97 Oximetry Oxygen Devices in Use Now: None Appearance: Elderly gentleman lying in bed in NAD, moving around. Eyes: No Scleral Icterus Ears/Nose/Mouth/Throat: Mucous Membranes Moist Neck: Trachea Midline Respiratory: Symmetrical Chest Expansion and Respiratory Effort, Clear to Auscultation Cardiovascular: RRR - Normal S1 and S2 Neurological: - - Alert and awake, oriented to self only, WATTS Result Diagrams: 11/12/18 05:04 11/12/18 08:54 Microbiology and Other Data: Microbiology 11/11/18 10:52 Urine Culture - Final Urine 11/11/18 15:50 Nasal Screen MRSA (PCR) - Final Nasal Mrsa Not Detected Assess/Plan/Problems-Billing Assessment: Mr Bell is a 72yo M with PMH of anemia, bipolar disorder with severe manic psychosis, dysphagia, HTN, hypothyroidism, seizure disorder, urinary retention with h/o UTI, antiphospholipid syndrome, GERD, HLD, type 2 DM, who presented to ED from [facility] with altered MS, likely secondary to Clozapine. - Patient Problems (1) Encephalopathy Comment: - Patient was off Clozapine for almost 2 weeks and medication was resumed 11/10 (full dose) and became very sedated. - Today he is alert and awake, oriented to self only, trying to remove IV and devices. - Will resume his usual meds and appreciated Psych input managing Clozapine. - CT brain was limited due to motion artifact, but showed no acute intracranial pathology. - EEG showed diffuse slowing compatible with encephalopathy. - Continue supportive care. (2) Elevated troponin Comment: - Could be secondary to demand ischemia, myocarditis associated with clozapine; but patient does have risk factors for CAD. - No c/o CP at this time. - EKG shows Q waves on inferior leads, but no acute ischemic changes. - Cardiology consult requested - will likely need echo and stress test when more stable. - Continue Lovenox for possible ACS. - Troponin trending down. (3) Type 2 diabetes mellitus Comment: - His glucose was on the lower side earlier, but his appetite is very good. He actually ate 2 breakfasts and glucose is trending up. - Resume Lantus and Lispro SS. (4) Hypothyroidism Comment: - Continue Levothyroxine. (5) Seizure disorder Comment: - Continue Lamictal. (6) Hypokalemia Comment: - Replete. (7) DVT prophylaxis Comment: - Lovenox. (8) DNR (do not resuscitate) Status and Disposition: Inpatient. Will transfer to medical floor, but will require safety monitor.
--- NOTE | 2018-11-12 19:14 | CONS ---
CC: Hospitalist Service; Physicians at [facility] * CARDIOLOGY CONSULTATION: DATE OF CONSULT: 11/12/18 REASON FOR CONSULT: Elevated troponins. CHIEF COMPLAINT: Altered mental status, not feeling himself. HISTORY OF PRESENT ILLNESS: Mr. Bell is a 72-year-old resident of [facility] and he has a history of bipolar disorder including severe manic psychotic features, see the admission H and P and Dr. Ram's psychiatric notes for details, but his psychiatric medication, Clozaril, ran out and it was for a couple of weeks and it was then resumed at the prior dose and after the first dose of this resumed medication, the patient fell asleep, but in reading reports it sounds like he became hypoxic, required oxygen, suctioning, and lethargic. It appears the medication led to respiratory depression and hypotension. The patient was sent here for evaluation. Troponins were performed in the emergency room and found to be elevated. The patient's mentation this morning is improved somewhat from admission and he did answer some of my questions. Although he denies ever having had chest pain , he denied feeling short of breath; however, when I asked him if he would be able to walk on a treadmill, he said, "Absolutely no way." I was unable to get a convincing answer regarding orthopnea and PND. PAST MEDICAL HISTORY: The patient has a past medical history of: 1. Bipolar disorder. 2. Type 2 diabetes. 3. Hyperlipidemia. 4. Obesity. 5. Antiphospholipid antibody syndrome. 6. Hypertension. 7. Hypothyroid. 8. Dysphagia. 9. Muscle weakness. 10. Seizures. 11. Urinary retention with urinary tract infections. 12. Constipation. 13. Blind. MEDICATIONS: Current inpatient medications include: 1. Tylenol p.r.n. 2. Aspirin 81 mg a day. 3. Cogentin 0.5 mg b.i.d. 4. Clozapine 25 mg q.h.s. 5. Colace. 6. Lovenox 85 mg q.12 hours. 7. Lantus insulin. 8. Humalog insulin. 9. Lamictal 75 mg t.i.d. 10. Synthroid 100 mcg a day. 11. Amitiza 24 mcg b.i.d. 12. Milk of Magnesia p.r.n. 13. Zofran p.r.n. 14. Protonix 40 mg a day. 15. Maalox p.r.n. 16. Pravachol 20 mg every other day. 17. Risperdal 1 mg b.i.d. 18. Senokot 2 tablets b.i.d. ALLERGIES: Include LEVOFLOXACIN, FABRIC SOFTENER, and IVORY SOAP. SOCIAL HISTORY: The patient is a resident of [facility]. I was unable to elicit smoking and drinking history due to his poor historical abilities. FAMILY HISTORY: Also unable to obtain. REVIEW OF SYSTEMS: Difficult. He admits that he is not feeling himself at all. Denies chest pain. Denies shortness of breath. Was eating breakfast, but really not able to obtain a comprehensive reliable history of present illness. PHYSICAL EXAMINATION: On exam, the patient is 5 feet 10 inches, weighs 190 pounds with a body mass index of 27. Vital signs were 118/69, pulse was 94, respiratory rate 19, oxygen saturation on room air 96%, temperature 98.2. General Appearance: Centripetally obese, older gentleman lying at 50 degrees. He was in the process of getting fed by an ICU aide. Psychologically, clearly impaired mentation at the time I saw him, but did answer questions and was intermittently cooperative. He was calm, although he would get animated answering some questions. Skin: Pale, consistent with lack of sun exposure, warm, and dry. No rashes. HEENT: Mucous membranes were moist. Neck without increased JVP. Breath sounds distant, but clear. He could not take deep breaths for me. Coronary: S1, S2 regular without appreciable murmurs. Abdomen : Rotund. No epigastric discomfort. Suboptimal exam for hepatomegaly. Lower Extremities: Were free of edema and warm. I did not appreciate bruits. DIAGNOSTIC STUDIES: EKG on arrival, 11/11/18, showed normal sinus rhythm, 82 beats a minute, QRS axis +30, first-degree A-V block, normal intraventricular conduction times and some nonspecific ST changes, corrected QT was prolonged at 501 msec. EKG this morning at 7 a.m. showed normal sinus rhythm, 76 beats a minute, QRS axis +30, first-degree A-V block, corrected QT interval 463 msec, ST- and T-wave morphology appears improved. LABORATORY DATA: White count on arrival 14; today 8.8, hemoglobin 13, hematocrit 40, platelets 281. INR 1.15. Sodium 143, potassium 3.3, chloride 112, bicarb 22, BUN 15, creatinine 0.98, glucose 225. Calcium 8.5. On arrival , AST mildly elevated at 49, ALT 27, CPK elevated at 1075. Troponins #1 of 0.63 , #2 of 0.67, #3 of 0.73, #4 of 0.68, #5 of 0.69, #6 of 0.63. LDL cholesterol on 11/12/18 was 97. Urine was positive for protein, ketones, leukocyte esterase. Urine culture, a few Enterobacteriaceae consistent with contamination. IMPRESSION: In summary, Alfredito Bell is a 72-year-old gentleman who presented with a change in mentation, evidence of respiratory suppression as well as hypotension on admission, probably related to medication adjustments as documented in the history of present illness with mild elevation of troponins. He has atherosclerotic risk factors of diabetes, dyslipidemia, centripetal obesity, hypertension. The patient's CPK is elevated as well, but this is most likely noncardiac based on the troponin levels and there would be a differential of some sort of myopathy, but statins could also be contributing or causing. With the patient's elevated troponins and atherosclerotic risks, it is not practical to do any sort of stress test. He is unable to walk and would not be able to walk or cooperate with a chemical stress test at this time. I would recommend getting a chemical stress test in the future if it would be acted on, i.e., if he is felt to be an interventional candidate. If he is not felt to be an interventional candidate, as he has not had anginal symptoms, I would optimize risk factor modification, optimizing hypertension, diabetes, lipids to ensure there is no hypoxia or sleep apnea contributing. This is possibly a type 2 or demand ischemia based on the acute events of his respiratory suppression and hypotension. For the elevated CPK, past records may be required, but you could consider a statin holiday or wider pulsing of his statin, but it sounds like this is not a newly diagnosed issue and his primary care team may have additional history in this area. Additional recommendations will be made pending his clinical course and ability to cooperate for exams (the patient declined an echocardiogram earlier; if he is able to cooperate with this in the future, I would recommend proceeding). Thank you for allowing me to assist in this nice and complex gentleman's care. [id number]/[facility] #: [id number] [facility]
--- NOTE | 2018-11-12 20:28 | ECHO ---
*[facility]* [place] [address] Fax #: [phone] Transthoracic Echocardiogram Patient: Alfredito Bell Height: 70 in / 177.8 cm : 1945 Weight: 189.6 lb / Study Date: 11/12/2018 86.2 kg Age: 72 BP: 137 / 70 Gender: M BMI/BSA: 27.3 kg/m^2 / HR: 79 bpm 2.04 m^2 *Circular Distributor: * Comfort Santiago RDCS RN *Referring Physician: * Renetta Oropeza *Reading Physician: * Angela Man MD Indications: Abnormal EKG. History: Bipolar disorder. Anemia. Thyroid disease. Seizure disorder. Risk factors: Hypertension. Diabetes mellitus. Dyslipidemia. Conclusions Summary: 1. Left ventricle: The cavity size is normal. Wall thickness is mildly to moderately increased. The estimated ejection fraction is 50-55%. 2. Right ventricle: Systolic function is normal. 3. Mitral valve: There is trace to mild regurgitation. 4. Aortic valve: The annulus is mildly calcified. The valve is trileaflet. The leaflets are mildly thickened. 5. No prior echocardiogram to compare. Study data: Transthoracic echocardiogram. Procedure: Transthoracic echocardiography was performed. The study was technically limited due to poor acoustic window availability and difficult positioning. The patient was unable to follow instructions. Intravenous Definity 3 ml was administered. Image enhancement administered by Salvador Lea RN and Jose Verdugo RN. Complete 2D, spectral Doppler, and color flow Doppler. Patient status: Inpatient. Patient room number: ICU 3. Rhythm: Normal sinus rhythm. Findings Left ventricle: The cavity size is normal. Wall thickness is mildly to moderately increased. The estimated ejection fraction is 50-55%. Regional wall motion abnormalities cannot be excluded, septal dysychrony. There is no consistent Doppler evidence of clinically significant diastolic dysfunction. Right ventricle: Not well visualized. The cavity size is normal. Systolic function is normal. Left atrium: The atrium is normal in size. Right atrium: Not visualized. Mitral valve: The leaflets are mildly thickened. There is no evidence of stenosis. There is trace to mild regurgitation. Aortic valve: The annulus is mildly calcified. The valve is trileaflet. The leaflets are mildly thickened. There is no evidence of stenosis. There is no regurgitation. Tricuspid valve: Not well visualized. There is no evidence of stenosis. There is trace regurgitation. Pulmonic valve: Not well visualized. There is no evidence of stenosis. There is no significant regurgitation. Aorta: Aortic root: The aortic root is not dilated. Ascending aorta: The ascending aorta is not dilated. Aortic arch: The aortic arch is not dilated. Pericardium: A pericardial fat pad is present. There is no significant pericardial effusion. Pulmonary arteries: Not well visualized. Systemic veins: Not visualized. Measurements Left ventricle Value Ref Aortic valve Value Ref JEISON, LAX (L) 3.9 cm 4.2 - Saad diam, ED 2.1 cm ---- 5.8 Peak v, S 1.15 m/sec ---- ESD, LAX 2.5 cm 2.5 - VTI, S 19.2 cm ---- 4.0 Mean grad, S 2.0 mm Hg ---- FS, LAX 36 % 25 - 43 Peak grad, S 5.0 mm Hg ---- PW, ED, LAX (H) 1.2 cm 0.6 - LVOT/AV, VTI ratio 0.73 ---- 1.0 IVS/PW, ED 1.06 -------- Mitral valve Value Ref E', lat saad, TDI (L) 5.1 cm/sec >=10.0 Peak E 0.78 m/sec --- - E/e', lat saad, TDI 15 -------- Peak A 1.09 m/sec ---- E', med saad, TDI (L) 4.0 cm/sec >=7.0 Decel time 275 ms --- - E/e', med saad, TDI 19 -------- Peak grad, D 2.4 mm Hg ---- E', avg, TDI 4.6 cm/sec -------- Peak E/A ratio 0.7 ---- E/e', avg, TDI (H) 17 <=14 Pulmonic valve Value Ref LVOT Value Ref Peak v, S 1.35 m/sec ---- Peak hunter, S 0.79 m/sec -------- Peak grad, S 7.0 mm Hg ---- VTI, S 14.0 cm -------- Mean grad, S 1 mm Hg -------- Aortic root Value Ref Root diam 3.4 cm <4.2 Ventricular septum Value Ref IVS, ED (H) 1.3 cm 0.6 - Ascending aorta Value Ref 1.0 AAo AP diam, S 3.4 cm ---- Right ventricle Value Ref Aortic arch Value Ref JEISON, LAX 2.6 cm -------- Arch diam 3.1 cm ---- Left atrium Value Ref Decending aorta Value Ref ML dim, A4C 3.2 cm -------- Tera peak hunter 0.55 m/sec ---- SI dim, A4C 4.1 cm -------- Vol/bsa, ES, 1-p 13 ml/m^2 12 - 37 A4C Vol/bsa, ES, A/L (L) 13 ml/m^2 16 - 34 Legend: (L) and (H) ramesh values outside specified reference range. Prepared and electronically signed by Angela Man MD 11/12/2018 20:28
[2018-11-12] MEDS ORDERED: CloZAPine TAB* 25 MG TAB PO SCH ×2 (21:00)
[2018-11-13] MEDS ORDERED: Levothyroxine TAB* 100 MCG TAB PO SCH (06:00)
[2018-11-13] MEDS: Insulin LISPRO* 1 UNITS UNIT SUBCUT SCH ×3 (08:00→13:20)
[2018-11-13] MEDS: CMC:Lubiprostone 24 MCG CAP (NF) PO SCH (08:30)
[2018-11-13] MEDS: Aspirin EC TAB* 81 MG TAB.EC PO SCH (08:30)
[2018-11-13] MEDS: Senna TAB PO SCH (08:31)
[2018-11-13] MEDS: lamoTRIgine TAB(*) 25 MG PO SCH (08:34)
[2018-11-13] MEDS: Pantoprazole TAB * 40 MG TAB PO SCH (08:35)
[2018-11-13] MEDS: Benztropine TAB* 1 MG PO SCH (08:35)
[2018-11-13] MEDS: risperiDONE TAB* 1 MG PO SCH (08:36)
[2018-11-13] MEDS: Enoxaparin(*) 100 MG/ML SYR SUBCUT SCH (08:38)
[2018-11-13] MEDS: Insulin GLARGINE(*) 1 UNITS UNIT SUBCUT SCH (08:38)
[2018-11-13] MEDS ORDERED: Docusate CAP* 100 MG PO SCH (09:00)
--- NOTE | 2018-11-13 09:00 | PN ---
Subjective Date of Service: 11/13/18 Interval History: f/u unresponsive episode, abnormal troponin Resting comfortably Not conversing this morning tele no arrhythmias Medications Active Medications: Acetaminophen (Tylenol Tab*) 650 mg PO Q4H PRN PRN Reason: FEVER/PAIN Aspirin (Aspirin Ec Tab*) 81 mg PO DAILY [facility] Last Admin: 11/13/18 08:30 Dose: 81 mg Benztropine Mesylate (Cogentin Tab*) 0.5 mg PO BID [facility] Last Admin: 11/13/18 08:35 Dose: 0.5 mg Clozapine (Clozapine Tab*) 25 mg PO BEDTIME [facility] Last Admin: 11/12/18 23:09 Dose: 25 mg Docusate Sodium (Colace Cap*) 100 mg PO BID [facility] Last Admin: 11/13/18 08:36 Dose: 100 mg Enoxaparin Sodium (Lovenox(*)) 85 mg SUBCUT Q12H [facility] Last Admin: 11/13/18 08:38 Dose: 85 mg Insulin Glargine (Lantus(*)) 20 units SUBCUT BID [facility] Last Admin: 11/13/18 08:38 Dose: 20 units Insulin Human Lispro (Humalog*) 0 units SUBCUT AC [facility]; Protocol Last Admin: 11/13/18 08:39 Dose: 4 units Lamotrigine (Lamictal Tab(*)) 75 mg PO TID [facility] Last Admin: 11/13/18 08:34 Dose: 75 mg Levothyroxine Sodium (Synthroid Tab*) 100 mcg PO DAILY@0600 [facility] Last Admin: 11/13/18 05:14 Dose: 100 mcg Lubiprostone (Amitiza (Nf)) 24 mcg PO BID [facility] Last Admin: 11/13/18 08:30 Dose: 24 mcg Magnesium Hydroxide (Milk Of Magnesia Liq*) 30 ml PO Q4H PRN PRN Reason: CONSTIPATION Ondansetron HCl (Zofran Tab*) 4 mg PO Q12H PRN PRN Reason: NAUSEA Pantoprazole Sodium (Protonix Tab*) 40 mg PO DAILY [facility] Last Admin: 11/13/18 08:35 Dose: 40 mg Polyethylene Glycol/Electrolytes (Miralax*) 17 gm PO DAILY PRN PRN Reason: CONSTIPATION Pravastatin Sodium (Pravachol (Nf)) 20 mg PO EVERY OTHER DAY [facility]; Protocol Last Admin: 11/12/18 10:30 Dose: 20 mg Risperidone (Risperdal*) 1 mg PO BID [facility] Last Admin: 11/13/18 08:36 Dose: 1 mg Senna (Senokot Tab*) 2 tab PO BID [facility] Last Admin: 11/13/18 08:31 Dose: 2 tab Objective Vital Signs: Temp Pulse Resp BP Pulse Ox 97.3 F 63 18 125/67 97 11/13/18 04:00 11/13/18 04:00 11/13/18 04:00 11/13/18 04:00 11/13/18 04:00 Oxygen Devices in Use Now: None Appearance: not toxic appearing or distressed Neck: Trachea Midline Respiratory: Symmetrical Chest Expansion and Respiratory Effort Cardiovascular: RRR Extremities: No Edema Skin: No Rash or Ulcers Laboratory Results: 11/12/18 05:04 11/12/18 08:54 INR (Anticoag Therapy) 1.15 (0.82-1.09) H 11/11/18 10:24 Total Bilirubin 1.00 mg/dL (0.2-1.0) 11/11/18 10:24 AST 49 U/L (13-39) H 11/11/18 10:24 ALT 27 U/L (7-52) 11/11/18 10:24 Alkaline Phosphatase 118 U/L (34-104) H 11/11/18 10:24 CK-MB (CK-2) 14.8 ng/mL (0.6-6.3) H 11/12/18 05:04 Total Protein 6.8 g/dL (6.4-8.9) 11/11/18 10:24 Albumin 3.8 g/dL (3.2-5.2) 11/11/18 10:24 Globulin 3.0 g/dL (2-4) 11/11/18 10:24 Albumin/Globulin Ratio 1.3 (1-3) 11/11/18 10:24 Triglycerides 133 mg/dL 11/12/18 05:04 Cholesterol 155 mg/dL 11/12/18 05:04 LDL Cholesterol 97 mg/dL 11/12/18 05:04 HDL Cholesterol 31.5 mg/dL 11/12/18 05:04 11/11/18 11/11/18 11/11/18 10:24 11:23 14:39 Troponin I 0.63 H* 0.69 H* 0.68 H* 11/11/18 11/11/18 11/11/18 15:30 19:50 22:45 Troponin I 0.73 H* 0.67 H* 0.67 H* Diagnostic Imaging: DIAGNOSTIC STUDIES: EKG on arrival, 11/11/18, showed normal sinus rhythm, 82 beats a minute, QRS axis +30, first-degree A-V block, normal intraventricular conduction times and some nonspecific ST changes, corrected QT was prolonged at 501 msec. EKG 11/12 showed normal sinus rhythm, 76 beats a minute, QRS axis +30, first- degree A-V block, corrected QT interval 463 msec, ST- and T-wave morphology appears improved. Study Date: 11/12/2018 Conclusions Summary: 1. Left ventricle: The cavity size is normal. Wall thickness is mildly to moderately increased. The estimated ejection fraction is 50-55%. 2. Right ventricle: Systolic function is normal. 3. Mitral valve: There is trace to mild regurgitation. 4. Aortic valve: The annulus is mildly calcified. The valve is trileaflet. The leaflets are mildly thickened. 5. No prior echocardiogram to compare. Assessment/Plan Patient admitted with unresponsive episode suspected secondary to medication side effects, comorbidities as per original cardiology consult. Found with elevated troponin, no cardiac complaints reported, no ischemic ekg changes and no segmental wall motion abnormalities noted, no heart failure or sustained arrhythmias. - Agree with Dr. Man's assessment and plan. Given comorbidities and DNR status and no high risk clinical findings may be more appropriate to treat empirically for presumed underlying atherosclerotic cad with aspirin, statin ( repeat ck pending) and beta-gonsalo (toprol 25 mg added and ordered today)
[2018-11-13 09:46] LABS: ABS Lymphocytes 1.2 10^3/ul (1.0-4.8); ABS Monocytes 0.5 10^3/ul (0-0.8); ABS Neutrophils 3.1 10^3/ul (1.5-7.7); Eosinophil % 0.1 %; Hematocrit 40 % (42-52); Hemoglobin 13.2 g/dL (14.0-18.0); Mean Corpuscular HGB Conc 33 g/dL (31-36); Mean Corpuscular Hemoglobin 29 pg (27-31); Mean Corpuscular Volume 86 fL (80-94); Mean Platelet Volume 7.3 fL (7.4-10.4); Nucleated Red Blood Cells % 0.1; Platelet Count 251 10^3/uL (150-450); Red Blood Count 4.63 10^6 /uL (4.18-5.48); Red Cell Distribution Width 15 % (10.5-15); White Blood Count 4.9 10^3/uL (3.5-10.8)
[2018-11-13 10:02] LABS: BUN/Creatinine Ratio 13.3 (8-20); Calcium 8.6 mg/dL (8.6-10.3); EGFR African American 90.5 (>60); EGFR Non-African American 74.8 (>60); Potassium 3.6 mmol/L (3.5-5.0)
--- NOTE | 2018-11-13 13:23 | DS ---
CC: Dr. Flores; Dr. Man; Dr. Terry; Dr. Ram; [facility] * DISCHARGE SUMMARY: DATE OF ADMISSION: 11/11/18 DATE OF DISCHARGE: 11/13/18 PRIMARY CARE PROVIDER: Dr. Flores from [facility]. DISPOSITION: He is being discharged back to [facility]. CONDITION ON DISCHARGE: Stable. DISCHARGE DIAGNOSES: 1. Lethargy at admission likely due to adverse effect of clozapine. 2. Elevation of CPK likely due to mild rhabdomyolysis secondary to clozapine- induced lethargy. 3. Elevated troponin likely due to demand ischemia. SECONDARY DIAGNOSES: 1. History of anemia. 2. History of bipolar disorder with severe manic psychosis. 3. Dysphagia. 4. History of hypertension. 5. Hypothyroidism. 6. History of muscle weakness. 7. History of seizures. 8. Urinary retention with history of urinary tract infections. 9. Antiphospholipid syndrome. 10. Constipation. 11. Gastroesophageal reflux disease. 12. Legally blind. 13. Hypercholesterolemia. 14. Diabetes type 2. MEDICATIONS AT DISCHARGE: Include: 1. Aspirin 81 mg daily. 2. Cogentin 0.5 mg b.i.d. 3. Dulcolax 1 suppository CO daily p.r.n. 4. Vitamin D3 1000 units daily. 5. Ferrous sulfate 325 mg daily. 6. Furosemide 20 mg daily. 7. Haldol 100 mg IM every 4 weeks. 8. Insulin glargine 35 units subcutaneously b.i.d. 9. Insulin lispro 12 units subcutaneously as per instructions, use after meals and hold if p.o. intake below 50%. 10. Lamictal 75 mg t.i.d. 11. Synthroid 100 mcg daily. 12. Amitiza 24 mcg b.i.d. 13. Milk of magnesia 30 mL on a p.r.n. basis every 4 hours. 14. Omeprazole 20 mg daily. 15. Zofran 4 mg every 12 hours p.r.n. 16. MiraLAX 17 g daily. 17. Pravachol 20 mg every other day. 18. Risperdal 1 mg b.i.d. 19. Senna 2 tablets b.i.d. 20. Tylenol 650 mg every 4 hours p.r.n. 21. Clozapine started with 25 mg b.i.d., beginning tonight at 25 mg, this night and tomorrow on 11/14/18 to continue 25 mg b.i.d. and then as per titration schedule that is provided to us by Dr. Ram and specific discharge instructions, but shortly on 11/15/18, the patient is supposed to take 25 mg in the morning, 50 at night; 11/16/18, the patient is supposed to take 25 in the morning and 75 at night; 11/17/18, he is to continue 25 mg in the morning and 75 at night; 11/18/18, 50 mg in the morning and 75 at night; 11/19/18, 50 in the morning and 100 at night; 11/20/18, 50 in the morning and 100 at night; , 50 in the morning and 125 at night; 11/22/18, 100 in the morning and 100 at night; 11/23/18, 100 in the morning and 125 at night; 11/24/18, 100 in the morning and 150 at night; 11/25/18, 100 in the morning and 175 at night; , 100 in the morning and 200 at night and at that point continue 100 in the morning and 200 at night of clozapine. The patient is to take, 1. Colace 100 mg b.i.d. 2. Metoprolol succinate 25 mg daily. 3. Senokot 2 tablets b.i.d. CONSULTATIONS DURING THE HOSPITAL STAY: Included Dr. Ram from Psychiatry, Dr. Terry and Dr. Man from Cardiology. LABORATORY DATA AND STUDIES PERFORMED DURING THE HOSPITAL STAY: Included: On , sodium of 142, potassium 3.6, chloride 113, carbon dioxide 24, BUN 13, creatinine 0.98. CPK of 339 at discharge. White blood cell count of 4.9, hemoglobin of 13.2, hematocrit of 40, and platelets of 151,000. EEG obtained on 11/11/18, impression: "This awake EEG is abnormal because of diffuse slowing of the background consistent with encephalopathy, but not specific as to etiology." The patient's transthoracic echocardiogram obtained on 11/11/18, impression: "Left ventricle, the cavity size is normal, wall thickness is mildly to moderately increased with estimated ejection fraction of 50% to 55%. Right ventricle systolic function is normal. Mitral valve, there is trace mitral regurgitation. 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 The valve is trileaflet. The leaflets are mildly thickened. No prior echocardiogram to compare." HOSPITAL COURSE: Alfredito Bell is a 72-year-old male with history of psychosis, who is a resident of [facility], who presented to the hospital with complaints of lethargy noted by the correction staff on 11/11/18. Apparently, outpatient, the patient's Clozaril was held for a few days due to that that the pharmacy was not supplying it. Later on, the patient was restarted on his usual dose of clozapine that he had been on previously. Due to that, the patient developed a marked lethargy and he came into the hospital with elevated troponin level with troponin peak of 0.73. The patient's CPKs were also markedly elevated with a CPK level of 1075 at admission. At that point, the patient was evaluated by Dr. Ram who recommended for the patient to be started on titration of Clozaril back up and starting at 25 mg twice a day to titrate back as above mentioned. We also consulted Cardiology for elevated troponin, whether this is more likely due to demand ischemia and the patient is not a good candidate for cardiac catheterization due to his DNR status and overall psychiatric stability. During the course of the patient's hospital stay, the patient was closely back to his baseline which is frequently talking to himself. Eyes frequently closed , rarely following commands. As per discussion with the patient's primary care provider, this is the patient's baseline. He is going to be discharged back to [facility]. Recommendation to titrate the Clozaril as above mentioned. The patient's CPK elevation was likely due to mild rhabdomyolysis due to lethargy. PHYSICAL EXAM AT THE TIME OF DISCHARGE: Blood pressure of 125/67, heart rate of 63 and regular, respiratory rate 18, oxygen saturation 97% on room air, temperature 97.3. General: The patient is a very pleasant 72-year-old male who is in no acute distress. The patient is not oriented, talking to himself, able to say yes to answer some of the questions. Randomly following commands, but sometimes not following commands. HEENT: Head: Atraumatic and normocephalic. Eyes: Pupils are 2 mm, mildly reactive to light. Oropharynx clear. Mucosa moist. Neck: Supple. No JVD. No bruits bilaterally. Cardiovascular: Regular rate and rhythm. No murmur. Respiratory: Clear to auscultation bilaterally. Abdomen: Distended mildly, soft and nontender. Bowel sounds present in all 4 quadrants. Extremities: There is no edema. Pulses are +2 bilaterally. No clubbing or cyanosis. Neuro evaluation: Face symmetrical. Otherwise, the patient is not really able to follow commands. Otherwise, the patient's motor strength is 5/5 bilaterally. Please note that this is a short summary of the patient's hospital stay. Please refer to further medical records for details. TIME SPENT: Approximately 40 minutes were spent on the patient's discharge. [id number]/CPS #: [id number] [employer]
[2018-11-13 14:36] VITALS: BP 115/55
[2018-11-13] MEDS ORDERED: CloZAPine TAB* 25 MG TAB PO SCH (21:00)
[2018-11-14] MEDS ORDERED: Metoprolol Succinate XL TAB* 25 MG PO SCH (09:00)
== END 2018-11-13 14:15 | DRG 557 ==
LOC: ED 08:45 → ICU 13:41 → MEDTELE 11-12 16:22
PROVIDERS: ADMIT Internal Medicine; ATTEND Internal Medicine
PROC: 4A00X4Z Measurement of Central Nervous Electrical Activity, External Approach (ICD-10-PCS; principal; 2018-11-11)
DX: M62.82 Rhabdomyolysis (principal); G92 Toxic encephalopathy; I24.8 Other forms of acute ischemic heart disease; R53.83 Other fatigue; I95.2 Hypotension due to drugs; E11.9 Type 2 diabetes mellitus without complications; G47.30 Sleep apnea, unspecified; F31.9 Bipolar disorder, unspecified; I10 Essential (primary) hypertension; E03.9 Hypothyroidism, unspecified; K21.9 Gastro-esophageal reflux disease without esophagitis; H54.8 Legal blindness, as defined in USA; E78.00 Pure hypercholesterolemia, unspecified; Z66 Do not resuscitate; E11.649 Type 2 diabetes mellitus with hypoglycemia without coma; E78.5 Hyperlipidemia, unspecified; E66.9 Obesity, unspecified; E87.6 Hypokalemia; I34.0 Nonrheumatic mitral (valve) insufficiency; G40.909 Epilepsy, unspecified, not intractable, without status epilepticus; T42.4X5A Adverse effect of benzodiazepines, initial encounter; Z68.27 Body mass index [BMI] 27.0-27.9, adult; Z88.1 Allergy status to other antibiotic agents; Z91.048 Other nonmedicinal substance allergy status; Z79.82 Long term (current) use of aspirin; Y92.9 Unspecified place or not applicable; Z79.4 Long term (current) use of insulin
CPT/HCPCS: 36415; 70450; 71045; 80048; 80053; 80061; 80307; 80320; 80329; 81003; 81015; 82140; 82550; 82553; 83605; 84484; 85025; 85610; 87086; 87641; 93005; 93306; 95816; 99285; A9270-GY; C8929; G0480; J1630; J1650; J3486

== ENCOUNTER 2018-11-16 23:19 | Observation (INO) | payer MEDICARE, MEDICAID ==
[2018-11-16] MEDS ORDERED: NS 0.9% 1000 ML** 1,000 ML IV ONE (23:54)
[2018-11-17 00:14] LABS: ABS Lymphocytes 1.3 10^3/ul (1.0-4.8); ABS Monocytes 0.7 10^3/ul (0-0.8); ABS Neutrophils 4.5 10^3/ul (1.5-7.7); Hematocrit 39 % (42-52); Hemoglobin 12.9 g/dL (14.0-18.0); Mean Corpuscular HGB Conc 33 g/dL (31-36); Mean Corpuscular Hemoglobin 29 pg (27-31); Mean Corpuscular Volume 86 fL (80-94); Mean Platelet Volume 7.3 fL (7.4-10.4); Nucleated Red Blood Cells % 0.1; Platelet Count 248 10^3/uL (150-450); Red Blood Count 4.54 10^6 /uL (4.18-5.48); Red Cell Distribution Width 15 % (10-15); White Blood Count 6.6 10^3/uL (3.5-10.8)
[2018-11-17 00:25] LABS: Activated Partial Thrombo Time 72.1 seconds (26.0-38.0); INR 0.99 (0.82-1.09)
[2018-11-17 00:31] LABS: Albumin 3.7 g/dL (3.2-5.2); Albumin/Globulin Ratio 1.3 (1-3); BUN/Creatinine Ratio 16.3 (8-20); Calcium 9.5 mg/dL (8.6-10.3); EGFR African American 69.6 (>60); EGFR Non-African American 57.5 (>60); Globulin 2.8 g/dL (2-4); Total Bilirubin 0.4 mg/dL (0.2-1.0); Total Protein 6.5 g/dL (6.4-8.9)
--- NOTE | 2018-11-17 00:38 | ED ---
GI/ HPI - HPI Summary HPI Summary: Patient is a 72 y/o M presenting to ED via EMS from [facility] with complaints of rectal bleeding. Per EMS, staff had reported that the patient had rectal bleeding twice today with enrique blood. Patient is alert but confused and does not answer questions. Level 5 caveat, patient is confused at baseline and cannot answer questions. Home medications and allergies are reviewed. - History of Current Complaint Chief Complaint: EDGeneral Time Seen by Provider: 11/16/18 23:47 Stated Complaint: "GI BLEED" PER EMS Hx Obtained From: EMS Hx From Patient Unobtainable Due To: Other - Level 5 caveat, patient is confused at baseline and cannot answer questions. Onset/Duration: Started Hours Ago - rectal bleeding onset today, Still Present Timing: Intermittent - two episodes reported Pain Intensity: 0 Associated Signs and Symptoms: Positive: Other: - rectal bleeding Aggravating Factor(s): Nothing Alleviating Factor(s): Nothing - Additional Pertinent History Primary Care Physician: VALORIE - Allergy/Home Medications Allergies/Adverse Reactions: Allergies Allergy/AdvReac Type Severity Reaction Status Date / Time levofloxacin Allergy Unknown Verified 11/11/18 08:59 Reaction Details fabric softener Allergy Unknown Uncoded 11/11/18 08:59 Reaction Details ivory soap Allergy Unknown Uncoded 11/11/18 08:59 Reaction Details PMH/Surg Hx/FS Hx/Imm Hx Endocrine/Hematology History: Reports: Hx Diabetes Respiratory History: Reports: Hx Sleep Apnea Sensory History: Denies: Hx Contacts or Glasses, Hx Hearing Aid Opthamlomology History: Denies: Hx Contacts or Glasses Infectious Disease History: Unable to Obtain/Confirm Infectious Disease History: Denies: Traveled Outside the [place] in Last 30 Days - Family History Known Family History: Positive: Unknown - Level 5 caveat, patient is confused at baseline - Social History Alcohol Use: None Alcohol Amount: unk 11/11/18 Hx Substance Use: No Substance Use Type: Reports: None Substance Use Comment - Amount & Last Used: unk 11/11/18 Smoking Status (MU): Unknown if Ever Smoked Review of Systems - ROS Summary Review of Systems Summary: Level 5 caveat, patient is confused at baseline and cannot answer questions. Negative: Fever - on vitals, temp is 96.8 F Genitourinary: Other - POSITIVE - RECTAL BLEEDING All Other Systems Reviewed And Are Negative: No - Comments Additional Review of Systems Comments: Level 5 caveat, patient is confused at baseline and cannot answer questions. Physical Exam - Summary Physical Exam Summary: VITAL SIGNS: Reviewed. GENERAL: Patient is a well-developed and nourished MALE who is lying comfortable in the stretcher. Patient is not in any acute respiratory distress. HEAD AND FACE: No signs of trauma. No ecchymosis, hematomas or skull depressions. No sinus tenderness. EYES: PERRLA, EOMI x 2, No injected conjunctiva, no nystagmus. EARS: Hearing grossly intact. Ear canals and tympanic membranes are within normal limits. MOUTH: Oropharynx within normal limits. NECK: Supple, trachea is midline, no adenopathy, no JVD, no carotid bruit, no c- spine tenderness, neck with full ROM CHEST: Symmetric, no tenderness at palpation LUNGS: Clear to auscultation bilaterally. No wheezing or crackles. CVS: Regular rate and rhythm, S1 and S2 present, no murmurs or gallops appreciated. ABDOMEN: Soft, non-tender. Abdomen is distended. No rebound no guarding, and no masses palpated. Bowel sounds are normal. RECTAL EXAM: Maroon blood noted, no active bleeding EXTREMITIES: FROM in all major joints, no edema, no cyanosis or clubbing. NEURO: Patient is alert but confused and does not answer questions. No acute neurological deficits. SKIN: Dry and warm Triage Information Reviewed: Yes Vital Signs On Initial Exam: Initial Vitals Temp Pulse Resp BP Pulse Ox 96.8 F 60 16 104/68 100 11/16/18 23:25 11/16/18 23:25 11/16/18 23:25 11/16/18 23:25 11/16/18 23:25 Vital Signs Reviewed: Yes Diagnostics - Vital Signs Vital Signs Temp Pulse Resp BP Pulse Ox 11/16/18 23:25 96.8 F 60 16 104/68 100 - Laboratory Result Diagrams: 11/17/18 00:06 11/17/18 00:06 Lab Statement: Any lab studies that have been ordered have been reviewed, and results considered in the medical decision making process. - EKG 0001 Cardiac Rate: NL - rate of 62 BPM EKG Rhythm: Sinus Rhythm Summary of EKG Findings: EKG showed sinus rhythm with rate of 62 BPM, low voltage. GIGU Course/Dx - Course Course Of Treatment: Patient is a 72 y/o M presenting to ED via EMS from [facility] with complaints of rectal bleeding. Per EMS, staff had reported that the patient had rectal bleeding twice today with enrique blood. Patient is alert but confused and does not answer questions. Level 5 caveat, patient is confused at baseline. On physical exam, patinet is noted to be alert but confused and not answering questions. Abdomen is distended. On rectal exam, maroon blood is noted , no active bleeding. EKG showed sinus rhythm with rate of 62 BPM, low voltage. Labs showed Hgb 12.9, Hct 39, MPV 7.3, INR 0.99, APTT 72.1, creatinine 1.23, glucose 271, alk phos 109. During ED course, patient received fluids. 0050 - Patient's case was discussed with Dr. Whelan, Dr. Whelan accepts for admission. - Diagnoses Provider Diagnoses: Lower GI bleed - Physician Notifications Discussed Care Of Patient With: Sandra Whelan Time Discussed With Above Provider: 00:50 Instructed by Provider To: Other - 0050 - Patient's case was discussed with Dr. Whelan, Dr. Whelan accepts for admission. Discharge - Sign-Out/Discharge Documenting (check all that apply): Patient Departure - admit Patient Received Moderate/Deep Sedation with Procedure: No - Discharge Plan Condition: Good Disposition: ADMITTED TO [facility] Referrals: Monica Flores DO [Primary Care Provider] - - Attestation Statements Document Initiated by Scribe: Yes Documenting Scribe: RISA PUGH Provider For Whom Scribe is Documenting (Include Credential): HELGA MCGARRY MD Scribe Attestation: IRISA scribed for HELGA MCGARRY MD on 11/17/18 at 0121. Status of Scribe Document: Ready
[2018-11-17] MEDS ORDERED: Al Hydrox/Mg Hydrox/Simet LIQ* 30 ML UDC PO PRN (01:13)
[2018-11-17] MEDS ORDERED: Acetaminophen TAB* 325 MG PO PRN (01:13)
[2018-11-17] MEDS ORDERED: Ondansetron INJ* 2 MG/ML VIAL IV PRN (01:13)
[2018-11-17] MEDS ORDERED: Dextrose 50% Syringe 50 ML* 25 GM/50 ML SYRINGE IV PUSH PRN (01:17)
[2018-11-17] MEDS ORDERED: Polyethylene Glycol 3350* 17 GM PACKET PO PRN (01:19)
[2018-11-17] MEDS ORDERED: Magnesium Hydroxide LIQ* 30 ML UDC PO PRN (01:19)
[2018-11-17] MEDS ORDERED: Insulin GLARGINE(*) 1 UNITS UNIT SUBCUT SCH (02:00)
[2018-11-17] MEDS ORDERED: Lactated Ringers 1000 ML Bag* 1,000 ML IV SCH (02:00)
--- NOTE | 2018-11-17 04:21 | HP ---
CC: [facility] * HISTORY AND PHYSICAL: DATE OF ADMISSION: 11/17/18 TIME OF EVALUATION: 0100 PRIMARY CARE PHYSICIAN: [facility]. CHIEF COMPLAINT: Gastrointestinal bleeding. HISTORY OF PRESENT ILLNESS: This is a 72-year-old male with past medical history of bipolar disorder with severe manic psychosis, who presented from [facility] after 2 days of rectal bleeding. The patient was noted to have rectal bleeding last evening thought to be due to hemorrhoids, again the provider was called this evening for moderate amount of bleeding and the recommendation was to be brought to the emergency room for further evaluation. The patient is unclear what his baseline is, but did not participate in a meaningful interaction. The ER provider did a rectal exam and noted a significant amount of maroon-colored stool and in this setting, recommended admission for further evaluation. On my encounter, the patient is alert, but unable to answer any questions appropriately or follow any commands. He was given a liter of fluid and referred to the hospitalist service for further evaluation. PAST MEDICAL HISTORY: 1. The patient was admitted on 11/11/18 to 11/13/18 for lethargy due to adverse effect of clozapine. 2. History of anemia. 3. History of bipolar disorder with severe manic psychosis. 3. History of dysphagia. 4. History of hypertension. 5. Hypothyroidism. 6. History of muscle weakness. 7. Seizures. 8. History of urinary retention with recurrent urinary tract infection. 9. History of antiphospholipid antibody syndrome. 10. History of constipation. 11. History of GERD. 12. Legally blind. 13. Hypercholesterolemia. 14. Diabetes. 15. Legally blind MEDICATIONS: 1. Lantus 35 units b.i.d. 2. Lasix 20 mg daily. 3. Synthroid 100 mcg daily. 4. Lubiprostone 24 mg b.i.d. 5. Milk of mag as needed. 6. Omeprazole 20 mg daily. 7. Zofran 4 mg every 12 hours as needed. 8. Pravastatin 20 mg daily. 9. Risperdal 1 g p.o. b.i.d. 10. Senna 2 tabs p.o. b.i.d. and as needed. 11. Metoprolol XL 25 mg daily. 12. The patient is on a clozapine taper going up, is currently on 11/17/18 at 25 mg in the morning and 75 mg in the evening for the next 2 days and continues to taper up after that to endpoint goal of 100 in the morning and 200 in the evening. 13. Colace 100 mg p.o. b.i.d. 14. Ferrous sulfate 325 mg p.o. daily. 15. MiraLAX 17 g p.o. daily. 16. Haloperidol 100 mg IM every 30 days. 17. Humalog 15 units subcu with meals. 18. Lamotrigine 75 mg p.o. t.i.d. 19. Tylenol 650 mg every 4 hours as needed. 20. Aspirin 81 mg daily. 21. Benztropine 0.5 mg p.o. b.i.d. 22. Bisacodyl suppository as needed. 23. Cholecalciferol 1000 units. ALLERGIES: LEVOFLOXACIN, FABRIC SOFTENER, and IVORY SOAP. FAMILY HISTORY: Unable to obtain. SOCIAL HISTORY: The patient resides at [facility]. He has a MOLST form. This is DNR/DNI. His next of kin is his niece, , Efrain Saucedo. According to the MOLST form, it states she never answers her phone and does not return phone calls. REVIEW OF SYSTEMS: Unable to obtain due to the patient's altered mental status. PHYSICAL EXAMINATION GENERAL: The patient is sedated. He is intermittently moaning and moving extremities. Does not open eyes or is interactive. VITAL SIGNS: Temp 96.8, pulse rate is 49, respiratory rate is 19, oxygen saturation is 97% on room air, blood pressure 126/72. HEENT: Head: Normocephalic. Pupils are equal and reactive. Mild conjunctival injection. Mucous membranes moist. NECK: Supple. RESPIRATORY: Diminished breath sounds. No wheeze, rhonchi or rales. CARDIAC: Regular rate and rhythm. Soft systolic murmur heard throughout. ABDOMEN: Hyperactive bowel sounds. Mild distention. Soft, nontender. EXTREMITIES: +1 pedal edema. NEUROLOGIC: As mentioned, the patient is nonverbal. Moving extremities. Unable to follow commands. DIAGNOSTIC STUDIES/LAB DATA: White count 6.6, hemoglobin 12.9, hematocrit 39, platelets 248. INR is 0.99. Sodium 135, potassium 4, chloride 101, bicarb 27, BUN 20, creatinine 1.23, glucose 271. ASSESSMENT: This is a 72-year-old male with a past medical history of bipolar disorder with psychosis, who presents to the emergency room with 2-day history of rectal bleeding. 1. Rectal bleeding. Assessment: The patient with maroon-colored stools, concerning of lower GI bleed, possibly a diverticular bleed. His H and H slight decline from it was done on 11/13/18. Unable to get a good history due to the patient's mental status, which I suspect may be near his baseline, but is unclear at this time. He is on a baby aspirin. Plan: We will admit him for observation to monitor his H and H. I do not think he is a good candidate for colonoscopy or further intervention with his baseline mental status and I would be hesitant to continue up titrating the clozapine in the setting of his lethargy currently. We will continue him n.p.o. If he has become more alert, we will order a bedside swallow eval and place him on a clear liquid diet and advance diet as tolerated. Continue him on the iron and hold the aspirin. 2. Chronic medical problems. As mentioned, for his bipolar disorder, I would not continue to increase his clozapine until he is more alert. We will hold his Lasix in the setting of being n.p.o. due to being altered. Continue remaining medications once he is able to safely pass a bedside swallow. Consider psych re-evaluation 3. Acute kidney injury. The patient with a increase in his creatinine. It could be prerenal. We will give him gentle IV fluids and hold his Lasix. 4. FEN: The patient with dysphagia at baseline on a modified diet. We will keep him n.p.o. until he becomes more alert and then do a bedside swallow. 5. Code status: The patient is a DNR/DNI. This needs to be confirmed with the niece. 6. DVT prophylaxis: The patient scores high risk. We will order SCDs in the setting of GI bleed. 7. Disposition. The patient is eligible for hospice with the terminal diagnosis of dysphagia and secondary diagnosis of bipolar with psychosis. PATIENT TIME: Greater than 45 minutes was spent doing the history and physical , more than half the time was direct patient contact. [id number]/[facility] #: [id number] INGRID
[2018-11-17] MEDS: Levothyroxine TAB* 100 MCG TAB PO SCH (05:25)
[2018-11-17] MEDS ORDERED: Insulin LISPRO* 1 UNITS UNIT SUBCUT SCH (07:30)
[2018-11-17 08:51] LABS: ABS Lymphocytes 1.7 10^3/ul (1.0-4.8); ABS Monocytes 0.8 10^3/ul (0-0.8); ABS Neutrophils 3.9 10^3/ul (1.5-7.7); Eosinophil % 0.1 %; Hematocrit 35 % (42-52); Hemoglobin 11.6 g/dL (14.0-18.0); Lymphocyte % 26.4 %; Mean Corpuscular HGB Conc 33 g/dL (31-36); Mean Corpuscular Hemoglobin 28 pg (27-31); Mean Corpuscular Volume 85 fL (80-94); Mean Platelet Volume 7.2 fL (7.4-10.4); Platelet Count 236 10^3/uL (150-450); Red Blood Count 4.11 10^6 /uL (4.18-5.48); Red Cell Distribution Width 14 % (10-15); White Blood Count 6.3 10^3/uL (3.5-10.8)
--- NOTE | 2018-11-17 08:53 | PN ---
Subjective Date of Service: 11/17/18 Interval History: Patient did not resppond verbally to me, did not c/o to nurse earlier. Objective Active Medications: Acetaminophen (Tylenol Tab*) 650 mg PO Q4H PRN PRN Reason: FEVER/PAIN Al Hydrox/Mg Hydrox/Simethicone (Maalox Plus*) 30 ml PO Q6H PRN PRN Reason: INDIGESTION Benztropine Mesylate (Cogentin Tab*) 0.5 mg PO BID [facility] Clozapine (Clozapine Tab*) 25 mg PO DAILY [facility] Clozapine (Clozapine Tab*) 75 mg PO BEDTIME [facility] Dextrose (D50w Syringe 50 Ml*) 12.5 gm IV PUSH .FOR FS < 60 - SS PRN PRN Reason: FS < 60 Ferrous Sulfate (Ferrous Sulfate Tab*) 325 mg PO DAILY [facility] Potassium Chloride/Sodium Chloride (Ns 0.45% Kcl 20 Meq 1000 Ml*) 1,000 mls @ 100 mls/hr IV PER RATE [facility] Insulin Glargine (Lantus(*)) 25 units SUBCUT Q24H [facility] Insulin Human Lispro (Humalog*) 0 units SUBCUT ACHS [facility]; Protocol Lamotrigine (Lamictal Tab(*)) 75 mg PO TID [facility] Levothyroxine Sodium (Synthroid Tab*) 100 mcg PO DAILY@0600 [facility] Last Admin: 11/17/18 05:25 Dose: 100 mcg Magnesium Hydroxide (Milk Of Magnsaba Liq*) 30 ml PO Q6H PRN PRN Reason: CONSTIPATION Metoprolol Succinate (Toprol Xl Tab*) 25 mg PO DAILY [facility] Ondansetron HCl (Zofran Inj*) 4 mg IV Q4H PRN PRN Reason: NAUSEA/VOMITING Pantoprazole Sodium (Protonix Tab*) 40 mg PO DAILY [facility] Polyethylene Glycol/Electrolytes (Miralax*) 17 gm PO DAILY [facility] Risperidone (Risperdal) 1 mg PO BID [facility] Vital Signs - 8 hr 11/17/18 11/17/18 11/17/18 01:38 02:40 07:33 Temperature 97.7 F 96.7 F 97.7 F Pulse Rate 56 59 51 Respiratory 20 18 14 Rate Blood Pressure 119/70 122/53 101/46 (mmHg) O2 Sat by Pulse 97 99 99 Oximetry Oxygen Devices in Use Now: None Appearance: Seems to be sleeping, did not wake up with light touch or voice. Looks comfortable. Lying on his R side. Eyes: No Scleral Icterus Respiratory: Symmetrical Chest Expansion and Respiratory Effort, Clear to Auscultation, Clear to Percussion Cardiovascular: NL Sounds; No Murmurs; No JVD, RRR, No Edema, - Abdominal: NL Sounds; No Tenderness; No Distention, No Hepatosplenomegaly, - Extremities: No Edema, No Clubbing, Cyanosis, - Skin: No Rash or Ulcers, No Nodules or Sclerosis, - Neurological: - - Nurse reports earlier today he spoke well and was oriented. Result Diagrams: 11/17/18 00:06 11/17/18 00:06 Microbiology and Other Data: Microbiology 11/17/18 02:35 Nasal Screen MRSA (PCR) - Final Nasal Mrsa Not Detected Assess/Plan/Problems-Billing Assessment: - Patient Problems (1) GI bleeding Current Visit: Yes Status: Acute Code(s): K92.2 - GASTROINTESTINAL HEMORRHAGE, UNSPECIFIED SNOMED Code(s): 12683159 Comment: Repeat CBC pending. Consider GI consult if volume of bleed significant. ? related to antiphospholipid antibody syndrome. (2) Hypothyroidism Current Visit: No Status: Acute Code(s): E03.9 - HYPOTHYROIDISM, UNSPECIFIED SNOMED Code(s): 29331017 Comment: - Continue Levothyroxine. Add on TSH requested 11/17. (3) Seizure disorder Current Visit: No Status: Acute Code(s): G40.909 - EPILEPSY, UNSP, NOT INTRACTABLE, WITHOUT STATUS EPILEPTICUS SNOMED Code(s): 471351269 Comment: - Continue Lamictal. (4) Type 2 diabetes mellitus Current Visit: No Status: Acute Comment: Glucose 82, 81 AM 11/17. Reduce Lantus to 25 U q 9 PM, continue Lispro by [facility]. (5) Psychiatric diagnosis Current Visit: Yes Status: Acute Code(s): F99 - MENTAL DISORDER, NOT OTHERWISE SPECIFIED SNOMED Code(s): 85496694 Comment: Psychiatry consult requested. On benztropine, clozapine, risperidone. (6) Legally blind Current Visit: Yes Status: Acute Code(s): H54.8 - LEGAL BLINDNESS, DEFINED IN [place] SNOMED Code(s): 26911241 Comment: Dx noted. (7) HTN (hypertension) Current Visit: Yes Status: Acute Code(s): I10 - ESSENTIAL (PRIMARY) HYPERTENSION SNOMED Code(s): 92388319 Comment: Continue metoprolol. (8) Chronic GERD Current Visit: Yes Status: Acute Code(s): K21.9 - GASTRO-ESOPHAGEAL REFLUX DISEASE WITHOUT ESOPHAGITIS SNOMED Code(s): 657382800 Comment: Continue PPI.
[2018-11-17] MEDS ORDERED: Metoprolol Succinate XL TAB* 25 MG PO SCH (09:00)
[2018-11-17] MEDS ORDERED: CloZAPine TAB* 25 MG TAB PO SCH (09:00)
[2018-11-17] MEDS: NS 0.45% KCl 20 Meq 1000 ML* 1,000 ML IV SCH ×2 (09:32→21:40)
[2018-11-17] MEDS: lamoTRIgine TAB(*) 25 MG PO SCH ×3 (09:33→21:41)
[2018-11-17] MEDS: Ferrous Sulfate TAB* 325 MG PO SCH (09:35)
[2018-11-17] MEDS: Benztropine TAB* 1 MG PO SCH ×2 (09:35→21:41)
[2018-11-17] MEDS: Pantoprazole TAB * 40 MG TAB PO SCH (09:35)
[2018-11-17] MEDS: Metoprolol Succinate XL TAB* 25 MG PO SCH (09:38)
[2018-11-17] MEDS: Polyethylene Glycol 3350* 17 GM PACKET PO SCH (09:38)
--- NOTE | 2018-11-17 13:28 | PN ---
Subjective - Subjective Date of Service: 11/17/18 Service Type: 94323 Hosp care 15 min low complexity Subjective: Alfredito is known to this observer due to being followed by the psychiatric consult service last week when he was admitted to the Hospitalist service for encephalopathy. After his return to [facility] he was discovered to have bloody stool and is now readmitted for evaluation and treatment of this. The primary team would like assistance with the management of his chronic psychotic illness and the continued titration of his clozapine therapy. He had been stable on this medication for years and was receiving it at before they ran out sometime in October of this year. He went two weeks without it and is alleged to have become delirious when it was resumed at the large dose of 100mg in the morning and 300mg at night. Subsequently he was briefly admitted last week to [facility] and the clozapine was held and then resumed with a methodical titration schedule. On exam today Alfredito is somnolent and not able to provide much history. Per Dr. Vicky Flores, who follows him at , his baseline is extremely low functioning and he will typically sit in a chair in the hallway, sticking to himself and occasionally blurting out non-sequitur statements to passers by. [address] [place] [address] staff indicates that he is cooperative when awake. Plan - Plan Treatment Plan: Name: ALFREDITO BOWMAN Birthdate: 1945 [id number] Medications: Current Medications Acetaminophen (Tylenol Tab*) 650 mg PO Q4H PRN PRN Reason: FEVER/PAIN Al Hydrox/Mg Hydrox/Simethicone (Maalox Plus*) 30 ml PO Q6H PRN PRN Reason: INDIGESTION Benztropine Mesylate (Cogentin Tab*) 0.5 mg PO BID [facility] Last Admin: 11/17/18 09:35 Dose: 0.5 mg Clozapine (Clozapine Tab*) 75 mg PO BEDTIME [facility] Clozapine (Clozapine Tab*) 50 mg PO DAILY [facility] Dextrose (D50w Syringe 50 Ml*) 12.5 gm IV PUSH .FOR FS < 60 - SS PRN PRN Reason: FS < 60 Ferrous Sulfate (Ferrous Sulfate Tab*) 325 mg PO DAILY [facility] Last Admin: 11/17/18 09:35 Dose: 325 mg Potassium Chloride/Sodium Chloride (Ns 0.45% Kcl 20 Meq 1000 Ml*) 1,000 mls @ 100 mls/hr IV PER RATE [facility] Last Admin: 11/17/18 09:32 Dose: 100 mls/hr Insulin Glargine (Lantus(*)) 25 units SUBCUT Q24H [facility] Insulin Human Lispro (Humalog*) 0 units SUBCUT ACHS [facility]; Protocol Lamotrigine (Lamictal Tab(*)) 75 mg PO TID [facility] Last Admin: 11/17/18 09:33 Dose: 75 mg Levothyroxine Sodium (Synthroid Tab*) 100 mcg PO DAILY@0600 [facility] Last Admin: 11/17/18 05:25 Dose: 100 mcg Magnesium Hydroxide (Milk Of Magnesia Liq*) 30 ml PO Q6H PRN PRN Reason: CONSTIPATION Metoprolol Succinate (Toprol Xl Tab*) 12.5 mg PO DAILY [facility] Last Admin: 11/17/18 09:38 Dose: Not Given Ondansetron HCl (Zofran Inj*) 4 mg IV Q4H PRN PRN Reason: NAUSEA/VOMITING Pantoprazole Sodium (Protonix Tab*) 40 mg PO DAILY [facility] Last Admin: 11/17/18 09:35 Dose: 40 mg Polyethylene Glycol/Electrolytes (Miralax*) 17 gm PO DAILY [facility] Last Admin: 11/17/18 09:38 Dose: 17 gm Risperidone (Risperdal) 1 mg PO BID [facility] Last Admin: 11/17/18 09:37 Dose: 1 mg
--- NOTE | 2018-11-17 13:31 | CONSULT ---
Identification - Patient Identification Reason for Psychiatric Consultation: Incapacitating Symptoms -: Patient is a 72 year old, M admitted on 11/17/18. - MHU Identification Employment Status: Disabled Hx Psychiatric Hospitalization: Yes History - Objective HPI: Alfredito is known to this observer due to being followed by the psychiatric consult service last week when he was admitted to the Hospitalist service for encephalopathy. After his return to [facility] he was discovered to have bloody stool and is now readmitted for evaluation and treatment of this. The primary team would like assistance with the management of his chronic psychotic illness and the continued titration of his clozapine therapy. He had been stable on this medication for years and was receiving it at before they ran out sometime in October of this year. He went two weeks without it and is alleged to have become delirious when it was resumed at the large dose of 100mg in the morning and 300mg at night. Subsequently he was briefly admitted last week to [facility] and the clozapine was held and then resumed with a methodical titration schedule. On exam today Alfredito is somnolent and not able to provide much history. Per Dr. Vicky Flores, who follows him at , his baseline is extremely low functioning and he will typically sit in a chair in the hallway, sticking to himself and occasionally blurting out non-sequitur statements to passers by. [address] [place] [address] staff indicates that he is cooperative when awake. Exam Level of Consciousness: Lethargic Impression - Impression Clinical Impression: 72 y.o. single, white male with chronic schizoaffective disorder who is a resident of [facility], admitted to Hospitalist service for hematochezia, who is in the middle of retitration of clozapine therapy. Inpatient DSM-V Dx: F25.0 Merits Inpatient Hospitalization: No Plan - Treatment Plan Treatment Plan: Name: ALFREDITO BOWMAN Birthdate: 1945 [id number] Will increase clozapine to 50mg PO qam and 75mg PO qhs per titation protocol. Psychiatry will continue to follow. Continued Medication Management: Continue Outpt Medication Medications: Current Medications Acetaminophen (Tylenol Tab*) 650 mg PO Q4H PRN PRN Reason: FEVER/PAIN Al Hydrox/Mg Hydrox/Simethicone (Maalox Plus*) 30 ml PO Q6H PRN PRN Reason: INDIGESTION Benztropine Mesylate (Cogentin Tab*) 0.5 mg PO BID [facility] Last Admin: 11/17/18 09:35 Dose: 0.5 mg Clozapine (Clozapine Tab*) 75 mg PO BEDTIME [facility] Clozapine (Clozapine Tab*) 50 mg PO DAILY [facility] Dextrose (D50w Syringe 50 Ml*) 12.5 gm IV PUSH .FOR FS < 60 - SS PRN PRN Reason: FS < 60 Ferrous Sulfate (Ferrous Sulfate Tab*) 325 mg PO DAILY [facility] Last Admin: 11/17/18 09:35 Dose: 325 mg Potassium Chloride/Sodium Chloride (Ns 0.45% Kcl 20 Meq 1000 Ml*) 1,000 mls @ 100 mls/hr IV PER RATE [facility] Last Admin: 11/17/18 09:32 Dose: 100 mls/hr Insulin Glargine (Lantus(*)) 25 units SUBCUT Q24H [facility] Insulin Human Lispro (Humalog*) 0 units SUBCUT ACHS [facility]; Protocol Lamotrigine (Lamictal Tab(*)) 75 mg PO TID [facility] Last Admin: 11/17/18 09:33 Dose: 75 mg Levothyroxine Sodium (Synthroid Tab*) 100 mcg PO DAILY@0600 [facility] Last Admin: 11/17/18 05:25 Dose: 100 mcg Magnesium Hydroxide (Milk Of Magnesia Liq*) 30 ml PO Q6H PRN PRN Reason: CONSTIPATION Metoprolol Succinate (Toprol Xl Tab*) 12.5 mg PO DAILY [facility] Last Admin: 11/17/18 09:38 Dose: Not Given Ondansetron HCl (Zofran Inj*) 4 mg IV Q4H PRN PRN Reason: NAUSEA/VOMITING Pantoprazole Sodium (Protonix Tab*) 40 mg PO DAILY [facility] Last Admin: 11/17/18 09:35 Dose: 40 mg Polyethylene Glycol/Electrolytes (Miralax*) 17 gm PO DAILY [facility] Last Admin: 11/17/18 09:38 Dose: 17 gm Risperidone (Risperdal) 1 mg PO BID [facility] Last Admin: 11/17/18 09:37 Dose: 1 mg
[2018-11-17] MEDS: Insulin LISPRO* 1 UNITS UNIT SUBCUT SCH ×3 (13:43→21:45)
[2018-11-17] MEDS: Insulin GLARGINE(*) 1 UNITS UNIT SUBCUT SCH (21:45)
[2018-11-17] MEDS: CloZAPine TAB* 25 MG TAB PO SCH (21:48)
[2018-11-18] MEDS: Levothyroxine TAB* 100 MCG TAB PO SCH (06:05)
[2018-11-18 06:45] LABS: ABS Lymphocytes 1.5 10^3/ul (1.0-4.8); ABS Monocytes 0.6 10^3/ul (0-0.8); ABS Neutrophils 3.6 10^3/ul (1.5-7.7); Hematocrit 33 % (42-52); Mean Corpuscular HGB Conc 33 g/dL (31-36); Mean Corpuscular Hemoglobin 28 pg (27-31); Mean Corpuscular Volume 85 fL (80-94); Mean Platelet Volume 7.4 fL (7.4-10.4); Platelet Count 194 10^3/uL (150-450); Red Blood Count 3.88 10^6 /uL (4.18-5.48); Red Cell Distribution Width 15 % (10-15); White Blood Count 5.7 10^3/uL (3.5-10.8)
[2018-11-18 06:51] LABS: BUN/Creatinine Ratio 14.4 (8-20); Calcium 8.6 mg/dL (8.6-10.3); EGFR African American 91.5 (>60); EGFR Non-African American 75.7 (>60)
[2018-11-18] MEDS: Insulin LISPRO* 1 UNITS UNIT SUBCUT SCH ×4 (07:49→20:22)
[2018-11-18] MEDS: lamoTRIgine TAB(*) 25 MG PO SCH ×3 (09:53→20:20)
[2018-11-18] MEDS: Metoprolol Succinate XL TAB* 25 MG PO SCH (09:55)
[2018-11-18] MEDS: Benztropine TAB* 1 MG PO SCH ×2 (09:55→20:19)
[2018-11-18] MEDS: CloZAPine TAB* 25 MG TAB PO SCH ×2 (09:56→20:19)
[2018-11-18] MEDS: Pantoprazole TAB * 40 MG TAB PO SCH (09:56)
[2018-11-18] MEDS: Ferrous Sulfate TAB* 325 MG PO SCH (09:58)
[2018-11-18] MEDS: Polyethylene Glycol 3350* 17 GM PACKET PO SCH (10:00)
--- NOTE | 2018-11-18 12:50 | CONSULT ---
Identification - Patient Identification Reason for Psychiatric Consultation: Incapacitating Symptoms -: Patient is a 72 year old, M admitted on 11/17/18. - MHU Identification Employment Status: Disabled Hx Psychiatric Hospitalization: Yes History - Objective HPI: Alfredito is seen for follow up in room 418. He is sitting up in a chair next to his bed but pays little attention to this observer, making unintelligible statements and staring at the ceiling. Staff reports indicate that he comes in and out of lucidity. He does not appear over-sedated. Exam Appearance: Obese Grooming: Disheveled Patient's Decription of Mood: "Okay" Observed Affect: Fair Affect Consistent with: Euthymia Patient's Thought Process: Incoherent Level of Consciousness: Alert Orientation: No Intact, No Orientated to Time, No Orientated to Place, No Orientated to Person Impulse Control: Tenuous Insight and Judgement: Impaired Impression - Impression Clinical Impression: 72 y.o. single, white male with chronic schizoaffective disorder who is a resident of [facility], admitted to Hospitalist service for hematochezia, who is in the middle of retitration of clozapine therapy. Inpatient DSM-V Dx: F25.0 Merits Inpatient Hospitalization: No Plan - Treatment Plan Treatment Plan: We are in the process of re-titrating clozapine, which he has been stable on for years. The next step is to increase tomorrow's (11/19) dose to 50mg AM and 100mg PM. Psychiatry will continue to assist with this. The patient will likely return to [facility] once medically clear and the providers there have the outpatient clozapine titration schedule. Continued Medication Management: Continue Outpt Medication Medications: Current Medications Acetaminophen (Tylenol Tab*) 650 mg PO Q4H PRN PRN Reason: FEVER/PAIN Al Hydrox/Mg Hydrox/Simethicone (Maalox Plus*) 30 ml PO Q6H PRN PRN Reason: INDIGESTION Benztropine Mesylate (Cogentin Tab*) 0.5 mg PO BID [facility] Last Admin: 11/18/18 09:55 Dose: 0.5 mg Clozapine (Clozapine Tab*) 75 mg PO BEDTIME [facility] Last Admin: 11/17/18 21:48 Dose: 75 mg Clozapine (Clozapine Tab*) 50 mg PO DAILY [facility] Last Admin: 11/18/18 09:56 Dose: 50 mg Dextrose (D50w Syringe 50 Ml*) 12.5 gm IV PUSH .FOR FS < 60 - SS PRN PRN Reason: FS < 60 Ferrous Sulfate (Ferrous Sulfate Tab*) 325 mg PO DAILY [facility] Last Admin: 11/18/18 09:58 Dose: 325 mg Potassium Chloride/Sodium Chloride (Ns 0.45% Kcl 20 Meq 1000 Ml*) 1,000 mls @ 100 mls/hr IV PER RATE [facility] Last Admin: 11/17/18 21:40 Dose: 100 mls/hr Insulin Glargine (Lantus(*)) 25 units SUBCUT Q24H [facility] Last Admin: 11/17/18 21:45 Dose: 25 units Insulin Human Lispro (Humalog*) 0 units SUBCUT ACHS [facility]; Protocol Last Admin: 11/18/18 07:49 Dose: Not Given Lamotrigine (Lamictal Tab(*)) 75 mg PO TID [facility] Last Admin: 11/18/18 09:53 Dose: 75 mg Levothyroxine Sodium (Synthroid Tab*) 100 mcg PO DAILY@0600 [facility] Last Admin: 11/18/18 06:05 Dose: 100 mcg Magnesium Hydroxide (Milk Of Magnesia Liq*) 30 ml PO Q6H PRN PRN Reason: CONSTIPATION Metoprolol Succinate (Toprol Xl Tab*) 12.5 mg PO DAILY [facility] Last Admin: 11/18/18 09:55 Dose: 12.5 mg Ondansetron HCl (Zofran Inj*) 4 mg IV Q4H PRN PRN Reason: NAUSEA/VOMITING Pantoprazole Sodium (Protonix Tab*) 40 mg PO DAILY [facility] Last Admin: 11/18/18 09:56 Dose: 40 mg Polyethylene Glycol/Electrolytes (Miralax*) 17 gm PO DAILY [facility] Last Admin: 11/18/18 10:00 Dose: Not Given Risperidone (Risperdal) 1 mg PO BID [facility] Last Admin: 11/18/18 10:00 Dose: 1 mg
[2018-11-18] MEDS: NS 0.45% KCl 20 Meq 1000 ML* 1,000 ML IV SCH (12:52)
--- NOTE | 2018-11-18 17:42 | DS ---
CC: Dr. [facility], [facility] * DISCHARGE SUMMARY: DATE OF ADMISSION: 11/17/18 DATE OF DISCHARGE: 11/18/18 PRIMARY DIAGNOSIS: Lower gastrointestinal bleed, suspected diverticular bleed. SECONDARY DIAGNOSES: 1. Anemia. 2. Bipolar with severe manic psychosis. 3. Dysphagia. 4. Hypertension. 5. Hypothyroidism. 6. Seizures. 7. Urinary retention with recurrent urinary tract infections. 8. Antiphospholipid antibody syndrome. 9. Idiopathic muscle weakness. 10. Constipation. 11. Gastroesophageal reflux disease. 12. Legally blind. 13. Hyperlipidemia. 14. Type 2 diabetes. MEDICATIONS ON DISCHARGE: 1. Clozaril 50 mg p.o. q.a.m. 2. Clozaril 75 mg p.o. q.p.m. 3. Aspirin 81 mg p.o. daily. 4. Cogentin 0.5 mg p.o. b.i.d. 5. Dulcolax suppository VA daily p.r.n. for constipation. 6. Vitamin D3 at 1000 International Units p.o. daily. 7. Ferrous sulfate 325 mg p.o. daily. 8. Furosemide 40 mg p.o. q.a.m. 9. Haldol Decanoate 100 mg IM every 4 weeks. 10. Insulin glargine 35 units subcu b.i.d. 11. Insulin lispro 12 units subcutaneous before meals, hold if p.o. intake below 50%. 12. Lamictal 75 mg p.o. t.i.d. 13. Levothyroxine 100 mcg p.o. daily. 14. Amitiza 24 mcg p.o. b.i.d. 15. Milk of Magnesia 30 mL every 4 hours as needed for dyspepsia or constipation. 16. Omeprazole 20 mg p.o. daily. 17. Zofran 4 mg p.o. q.12 hours p.r.n. for nausea. 18. MiraLAX 17 g p.o. daily. 19. Pravachol 20 mg p.o. every other evening. 20. Risperdal 1 mg p.o. b.i.d. 21. Senna 2 tabs p.o. b.i.d. 22. Tylenol 650 mg p.o. q.4 hours p.r.n. for pain. 23. Colace 100 mg p.o. b.i.d. 24. Metoprolol succinate 25 mg p.o. daily. The plan for increasing doses of Clozaril (clozapine) includes increase on 11/19 to 50 mg in the morning and 100 mg at night; on 11/20/18, the same dose; on 11/21/18, 50 mg in the morning and 125 at night; on 11/22/18, 100 mg in the morning and 100 mg at night; on 11/23/18, 100 mg in the morning and 125 at night ; on 11/24/18, 100 mg in the morning and 150 at night; on 11/25/18, increase to 100 mg in the morning and 175 at night; and on 11/26/18, take 100 mg in the morning and 200 at night and at that point, continue 100 mg in the morning and 200 at night of clozapine. HOSPITAL COURSE: The patient was admitted through our emergency room with reported lower GI bleeding. Initially, it was bright red blood and thought to be hemorrhoidal, but then there were maroon stools and a concern for diverticular or other colon bleeding was present. The initial hemoglobin was 12.9, which fell to 11.6 later that same day of admission and 11.0 on the day of discharge. No further melena or hematochezia occurred during the hospital stay. The patient's aspirin was held temporarily. Other pertinent lab results in the hospital stay included a creatinine of 1.23, blood glucose ranging from 81 to 357. TSH was 4.89. No other significant laboratory abnormalities were found. Chest x-ray completed on admission, which showed no infiltrates or effusions, but slightly limited exam, poor inspiration. The patient because of the lack of further rectal bleeding was not seen by gastroenterology. It is recommended that the patient be set up for an outpatient colonoscopy when [facility] returns [facility]. He can be prepped and seen by gastroenterology on an outpatient basis. I also recommend repeating a CBC in 2 to 3 weeks after discharge to ensure he does not have worsening anemia. The patient had a consultation with Dr. Ram, psychiatry, regarding the recent altered mental status due to inadvertently stopping and restarting high dose of Clozaril. The patient's titration schedule was straightened out and documented and this should be continued when he returns to [facility]. On the day of discharge, the patient around 3 in the afternoon was found with his bed alarm ringing and on his hands and knees. He did not have any visible bruising on his head and no change in his mental status beyond his baseline of yelling and swearing, random objects of conversation. There are some scrapes on his legs, which are not new. We will observe him for 3 more hours here in the hospital and send him home to [facility] later on this evening if his mental status remains unchanged. DISPOSITION: To [facility]. STATUS: Observation. CONDITION: Stable. DIET: Should be diabetic diet. ACTIVITY: Should be out of bed to chair with assistance. [id number]/[facility] #: [id number] IN[facility]
[2018-11-18] MEDS: Insulin GLARGINE(*) 1 UNITS UNIT SUBCUT SCH (20:22)
[2018-11-19] MEDS: Levothyroxine TAB* 100 MCG TAB PO SCH (05:43)
[2018-11-19] MEDS: CloZAPine TAB* 25 MG TAB PO SCH (09:58)
[2018-11-19] MEDS: lamoTRIgine TAB(*) 25 MG PO SCH (09:58)
[2018-11-19] MEDS: Pantoprazole TAB * 40 MG TAB PO SCH (09:58)
[2018-11-19] MEDS: Benztropine TAB* 1 MG PO SCH (10:00)
[2018-11-19] MEDS: Metoprolol Succinate XL TAB* 25 MG PO SCH (10:01)
[2018-11-19] MEDS: Polyethylene Glycol 3350* 17 GM PACKET PO SCH (10:03)
[2018-11-19] MEDS: Insulin LISPRO* 1 UNITS UNIT SUBCUT SCH ×2 (10:04→12:27)
[2018-11-19] MEDS: Ferrous Sulfate TAB* 325 MG PO SCH (10:09)
--- NOTE | 2018-11-19 10:54 | CONSULT ---
Identification - Patient Identification Reason for Psychiatric Consultation: Incapacitating Symptoms -: Patient is a 73 year old, M admitted on 11/17/18. - MHU Identification Employment Status: Disabled Hx Psychiatric Hospitalization: Yes History - Objective HPI: Alfredito appears at his baseline, which is hebephrenic and somewhat silly. For example, when I ask him where he's from he responds "From my mother's womb" and starts laughing. He appears to be tolerating the re-titration of clozapine well and I don't note any sedation or discomfort. He denies SI or HI. Exam Appearance: Obese Hygiene: Normal Grooming: Fairly Well Kept Psychomotor Activities: Normal Exhibits Abnormal Movement: No Attitude and Relatedness: Child Like Eye Contact: Poor - Speech Quality: Unpressured Latencies: Short Quantity: Terse Patient's Decription of Mood: "Okay" Observed Affect: Euphoric Affect Consistent with: Euthymia Patient's Thought Process: Incoherent Thought Content: No Passive Wish, No Suicidal Planning, No Homicidal Ideation, No Paranoid Ideation Experiencing Hallucinations: No, Sensorium is Clear Type of Hallucinations: Visual: No, Auditory: No, Command: No Level of Consciousness: Alert Orientation: No Intact, No Orientated to Time, No Orientated to Place, No Orientated to Person Impulse Control: Tenuous Insight and Judgement: Impaired Impression - Impression Clinical Impression: 72 y.o. single, white male with chronic schizoaffective disorder who is a resident of [facility], admitted to Hospitalist service for hematochezia, who is in the middle of retitration of clozapine therapy. Inpatient DSM-V Dx: F25.0 Merits Inpatient Hospitalization: No Plan - Treatment Plan Treatment Plan: We are in the process of re-titrating clozapine, which he has been stable on for years. The next step is to increase today's dose to 50mg AM and 100mg PM. Psychiatry will continue to assist with this. The patient will likely return to [facility] once medically clear and the providers there have the outpatient clozapine titration schedule. He is psychiatrically cleared for discharge. Continued Medication Management: Continue Outpt Medication Medications: Current Medications Acetaminophen (Tylenol Tab*) 650 mg PO Q4H PRN PRN Reason: FEVER/PAIN Al Hydrox/Mg Hydrox/Simethicone (Maalox Plus*) 30 ml PO Q6H PRN PRN Reason: INDIGESTION Benztropine Mesylate (Cogentin Tab*) 0.5 mg PO BID [facility] Last Admin: 11/19/18 10:00 Dose: 0.5 mg Clozapine (Clozapine Tab*) 50 mg PO DAILY [facility] Last Admin: 11/19/18 09:58 Dose: 50 mg Clozapine (Clozapine Tab*) 100 mg PO BEDTIME [facility] Dextrose (D50w Syringe 50 Ml*) 12.5 gm IV PUSH .FOR FS < 60 - SS PRN PRN Reason: FS < 60 Ferrous Sulfate (Ferrous Sulfate Tab*) 325 mg PO DAILY [facility] Last Admin: 11/19/18 10:09 Dose: 325 mg Insulin Glargine (Lantus(*)) 25 units SUBCUT Q24H [facility] Last Admin: 11/18/18 20:22 Dose: 25 units Insulin Human Lispro (Humalog*) 0 units SUBCUT [facility]; Protocol Last Admin: 11/19/18 10:04 Dose: 4 units Lamotrigine (Lamictal Tab(*)) 75 mg PO TID [facility] Last Admin: 11/19/18 09:58 Dose: 75 mg Levothyroxine Sodium (Synthroid Tab*) 100 mcg PO DAILY@0600 [facility] Last Admin: 11/19/18 05:43 Dose: Not Given Magnesium Hydroxide (Milk Of Magnsaba Liq*) 30 ml PO Q6H PRN PRN Reason: CONSTIPATION Metoprolol Succinate (Toprol Xl Tab*) 12.5 mg PO DAILY [facility] Last Admin: 11/19/18 10:01 Dose: 12.5 mg Ondansetron HCl (Zofran Inj*) 4 mg IV Q4H PRN PRN Reason: NAUSEA/VOMITING Pantoprazole Sodium (Protonix Tab*) 40 mg PO DAILY [facility] Last Admin: 11/19/18 09:58 Dose: 40 mg Polyethylene Glycol/Electrolytes (Miralax*) 17 gm PO DAILY [facility] Last Admin: 11/19/18 10:03 Dose: 17 gm Risperidone (Risperdal) 1 mg PO BID [facility] Last Admin: 11/18/18 20:21 Dose: 1 mg
[2018-11-19 11:35] VITALS: BP 138/62
[2018-11-19] MEDS ORDERED: CloZAPine TAB* 100 MG TAB PO SCH (21:00)
== END 2018-11-19 12:51 ==
LOC: ED 23:19 → MED 11-17 01:13
PROVIDERS: ADMIT Pediatrics; ATTEND Internal Medicine
DX: K92.2 Gastrointestinal hemorrhage, unspecified (principal); D64.9 Anemia, unspecified; F31.89 Other bipolar disorder; R13.10 Dysphagia, unspecified; I10 Essential (primary) hypertension; E03.9 Hypothyroidism, unspecified; G40.909 Epilepsy, unspecified, not intractable, without status epilepticus; R33.9 Retention of urine, unspecified; Z87.440 Personal history of urinary (tract) infections; D68.61 Antiphospholipid syndrome; M62.81 Muscle weakness (generalized); K59.00 Constipation, unspecified; K21.9 Gastro-esophageal reflux disease without esophagitis; H54.8 Legal blindness, as defined in USA; E78.5 Hyperlipidemia, unspecified; E11.9 Type 2 diabetes mellitus without complications; Z79.82 Long term (current) use of aspirin; Z79.899 Other long term (current) drug therapy
CPT/HCPCS: 36415; 71045; 80048; 80053; 84443; 85025; 85610; 85730; 86850; 86900; 86901; 87641; 93005; 96360; 96361; 99284; A9270-GY; G0378

== ENCOUNTER 2019-05-13 09:00 | Inpatient (IN) | payer MEDICARE, MEDICAID ==
--- NOTE | 2019-05-13 09:37 | ED ---
Abdominal Pain/Male - HPI Summary HPI Summary: The patient is a 73 y/o M arriving by ambulance to [facility] from [facility] with a chief complaint of diffuse abdominal pain and distension since yesterday. Staff are concerned as the patients abdomen has been more bloated than usual despite last bowel movement yesterday. He has history of constipation. Pain is rated 8/10 in severity. PMHx: diabetes, HLD, sleep apnea, hypothyroidism, legally blind, anemia, GERD, epilepsy, bipolar disorder. Unknown social history. Medications reviewed. Allergies noted. History is limited as patients baseline is confusion. Information obtained from staff at [facility] and medical records. - History of Current Complaint Chief Complaint: EDAbdPain Stated Complaint: ABDOMINAL PAIN PER EMS Time Seen by Provider: 05/13/19 09:07 Hx Obtained From: Family/Application Security Architect - [facility], Medical Records Hx From Patient Unobtainable Due To: Other - Level 5 Caveat, patient is confused at baseline Onset/Duration: Lasting Hours Severity Currently: Severe Pain Intensity: 8 Pain Scale Used: 0-10 Numeric Location: Diffuse - Allergies/Home Medications Allergies/Adverse Reactions: Allergies Allergy/AdvReac Type Severity Reaction Status Date / Time levofloxacin Allergy Unknown Verified 05/13/19 09:20 Reaction Details fabric softener Allergy Unknown Uncoded 11/11/18 08:59 Reaction Details ivory soap Allergy Unknown Uncoded 11/11/18 08:59 Reaction Details Home Medications: Home Medications CloZAPine TAB* 100 mg PO QAM 05/13/19 [History Confirmed 05/13/19] CloZAPine TAB* 200 mg PO BEDTIME 05/13/19 [History Confirmed 05/13/19] Insulin Glargine,Hum.rec.anlog [Lantus Solostar 5x3 ML PENS] 35 units SUBCUT BEDTIME 05/13/19 [History Confirmed 05/13/19] Insulin Glargine,Hum.rec.anlog [Lantus Solostar 5x3 ML PENS] 45 units SUBCUT QAM 05/13/19 [History Confirmed 05/13/19] Lactulose* 30 ml PO DAILY PRN 05/13/19 [History Confirmed 05/13/19] Sodium Phosphate ADULT ENEMA* [Fleet Enema*] 1 enema MT DAILY PRN 05/13/19 [ History Confirmed 05/13/19] PMH/Surg Hx/FS Hx/Imm Hx Endocrine/Hematology History: Reports: Hx Diabetes, Hx Anemia Cardiovascular History: Reports: Hx Hypercholesterolemia Denies: Hx Hypertension Respiratory History: Reports: Hx Sleep Apnea GI History: Reports: Hx Gastroesophageal Reflux Disease, Other GI Disorders - constipation Sensory History: Reports: Hx Legally Blind Denies: Hx Contacts or Glasses, Hx Hearing Aid Opthamlomology History: Reports: Hx Legally Blind Denies: Hx Contacts or Glasses Neurological History: Reports: Other Neuro Impairments/Disorders - epilepsy Psychiatric History: Reports: Hx Bipolar Disorder - Surgical History Surgical History: Unable to Obtain/Confirm - Level 5 caveat, patient is confused at baseline Infectious Disease History: No Infectious Disease History: Denies: Traveled Outside the [place] in Last 30 Days - Family History Known Family History: Positive: Unknown - Level 5 caveat, patient is confused at baseline - Social History Alcohol Use: UNABLE TO DETERMINE Alcohol Amount: [facility] 11/11/18 Hx Substance Use: No Substance Use Type: Reports: None Substance Use Comment - Amount & Last Used: [facility] 11/11/18 Smoking Status (MU): Unknown if Ever Smoked - level 5 caveat Review of Systems Positive: Abdominal Pain - diffuse, Other - abdominal distension All Other Systems Reviewed And Are Negative: No - Comments Additional Review of Systems Comments: Level 5 Caveat secondary to patient being confused at baseline Physical Exam - Summary Physical Exam Summary: VITAL SIGNS: Reviewed. GENERAL: Patient is a well-developed and nourished male who is lying comfortable in the stretcher. Patient is not in any acute respiratory distress. HEAD AND FACE: No signs of trauma. No ecchymosis, hematomas or skull depressions. No sinus tenderness. EYES: PERRLA, EOMI x 2, No injected conjunctiva, no nystagmus. EARS: Hearing grossly intact. Ear canals and tympanic membranes are within normal limits. MOUTH: Dry oral mucosa. Oropharynx otherwise within normal limits. NECK: Supple, trachea is midline, no adenopathy, no JVD, no carotid bruit, no c- spine tenderness, neck with full ROM. CHEST: Symmetric, no tenderness at palpation. LUNGS: Clear to auscultation bilaterally. No wheezing or crackles. CVS: Regular rate and rhythm, S1 and S2 present, no murmurs or gallops appreciated. ABDOMEN: Soft, diffuse tenderness. Abdominal distension. No rebound, no guarding , and no masses palpated. Decreased bowel sounds. EXTREMITIES: FROM in all major joints, no edema, no cyanosis or clubbing. NEURO: Alert but not oriented. No acute neurological deficits. Speech is normal and follows commands. SKIN: Dry and warm. Triage Information Reviewed: Yes Vital Signs On Initial Exam: Initial Vitals Temp Pulse Resp BP Pulse Ox 98.3 F 90 22 136/81 91 05/13/19 09:06 05/13/19 09:06 05/13/19 09:06 05/13/19 09:06 05/13/19 09:06 Vital Signs Reviewed: Yes Completion Of Physical Exam Limited Due To: Level 5 - patient confused at baseline Procedures - Sedation Patient Received Moderate/Deep Sedation with Procedure: No Diagnostics - Vital Signs Vital Signs Temp Pulse Resp BP Pulse Ox 05/13/19 09:06 98.3 F 90 22 136/81 91 - Laboratory Result Diagrams: 05/15/19 05:08 05/14/19 00:21 Lab Statement: Any lab studies that have been ordered have been reviewed, and results considered in the medical decision making process. - EKG 0953 Cardiac Rate: NL - 85 BPM EKG Rhythm: Sinus Rhythm EKG Comparison: No Significant Change - Similar to previous taken on 11/16/2018. Summary of EKG Findings: EKG at 0953 reveals normal sinus rhythm at 85 BPM. Q wave in III, aVF, and V1-V3. No ST elevations. ED physician has reviewed and interpreted this EKG. Abdominal Pain Male Course/Dx - Course Assessment/Plan: This patient is a 73-year-old male who presents to the emergency department from shelter with a chief complaint of abdominal pain. Unable to obtain a history from the patient as she is alert but not oriented. Past medical history: Encephalopathy, elevated troponins, diabetes mellitus type 2, hypothyroidism, seizure disorder, hypokalemia, GI bleed, legally blind, hypertension and chronic GERD. Blood work impression: CBC: WBCs of 11.1, hemoglobin of 14.4, hematocrit of 43, and platelets of 236. CMP without any significant abnormality except for creatinine of 1.2, glucose of 291 , lactic acid of 2.7, AST of 114, CK-MB of 212, troponin of 13.06, CRP of 12.86 , and BNP of 497. In the ED course, the patient was given aspirin and nitroglycerin. I held the heparin since the patient has a history of GI bleed, and I am unable to obtain the history of the GI bleed. EKG at 0953 reveals normal sinus rhythm at 85 BPM with Q wave in III, aVF, and V1-V3, but no ST elevations. I discussed the case with Dr. Man from cardiology. She recommends Lopressor, Aspirin and unfractionated Heparin. I discussed my physical exam findings with Dr. Aguilar from the hospital services who accepted the patient for admission. He ordered the unfractionated heparin. Abdominal and pelvic CT impression: Stool throughout the colon, No bowel obstruction. No obstructive uropathy, Cholelythiasis, hepatic steatosis. - Diagnoses Differential Diagnosis/HQI/PQRI: ACS, AMI, Appendicitis, Bowel Obstruction, Constipation Provider Diagnoses: NSTEMI (non-ST elevated myocardial infarction) - Provider Notifications Discussed Care Of Patient With: Angela Man - cardiology Time Discussed With Above Provider: 10:52 Instructed by Provider To: Other - I discussed the patient's case with results of an elevated troponin and abnormal EKG, and she recommends Lopressor, Aspirin and unfractionated Heparin. I spoke with Dr. Aguilar concerngin the patient, and he accepts the patient for admission at 1033. Discharge ED - Sign-Out/Discharge Documenting (check all that apply): Patient Departure - Patient accepted for admission by Dr. Aguilar. - Discharge Plan Condition: Stable Disposition: ADMITTED TO [facility] - Billing Disposition and Condition Condition: STABLE Disposition: Admitted to [facility] - Attestation Statements Document Initiated by Errol: Yes Documenting Scribe: Lizzy Wagner Provider For Whom Errol is Documenting (Include Credential): Dr. Jack Dixon MD Scribe Attestation: Lizzy Jacobs, scribed for Dr. Jack Dixon MD on 05/15/19 at 0801. Scribe Documentation Reviewed: Yes Provider Attestation: The documentation as recorded by the Lizzy gold accurately reflects the service I personally performed and the decisions made by me, Dr. Jack Dixon MD Status of Scribe Document: Viewed
[2019-05-13 09:41] LABS: ABS Basophils 0.1 10^3/ul (0-0.2); ABS Lymphocytes 0.7 10^3/ul (1.0-4.8); ABS Monocytes 0.8 10^3/ul (0-0.8); ABS Neutrophils 9.6 10^3/ul (1.5-7.7); Hematocrit 43 % (42-52); Hemoglobin 14.4 g/dL (14.0-18.0); Mean Corpuscular HGB Conc 33 g/dL (31-36); Mean Corpuscular Hemoglobin 29 pg (27-31); Mean Corpuscular Volume 87 fL (80-94); Mean Platelet Volume 7.3 fL (7.4-10.4); Platelet Count 236 10^3/uL (150-450); Red Cell Distribution Width 14 % (10-15); White Blood Count 11.1 10^3/uL (3.5-10.8)
[2019-05-13 10:01] LABS: ALT 28 U/L (7-52); AST 114 U/L (13-39); Albumin 3.9 g/dL (3.2-5.2); Albumin/Globulin Ratio 1.1 (1-3); Alkaline Phosphatase 122 U/L (34-104); Anion Gap 9 mmol/L (2-11); BUN/Creatinine Ratio 14.2 (8-20); Blood Urea Nitrogen 17 mg/dL (6-24); C Reactive Protein 12.86 mg/L (<8.01); CO2 Carbon Dioxide 28 mmol/L (22-32); Calcium 9.5 mg/dL (8.6-10.3); Chloride 102 mmol/L (101-111); EGFR African American 71.4 (>60); Globulin 3.4 g/dL (2-4); Glucose 291 mg/dL (70-100); Magnesium 1.9 mg/dL (1.9-2.7); Potassium 4.4 mmol/L (3.5-5.0); Sodium 139 mmol/L (135-145); Total Protein 7.3 g/dL (6.4-8.9)
[2019-05-13 10:05] LABS: Troponin I 13.06 ng/mL (<0.03)
[2019-05-13] MEDS ORDERED: Aspirin 81 mg CHEW TAB* 81 MG TAB.CHEW PO ONE (10:11)
[2019-05-13] MEDS ORDERED: Metoprolol Tartrate TAB* 25 MG PO ONE (10:12)
[2019-05-13] MEDS ORDERED: Nitro 2% OINT* (Nitroglycerin) 1 INCH/PAK PAK TOPICAL ONE ×2 (10:12→12:49)
[2019-05-13] MEDS ORDERED: NS 0.9% 1000 ML** 1,000 ML IV ONE (10:13)
[2019-05-13] MEDS ORDERED: Iodixanol* (CONTRAST) 320 MG/ML 100 ML SDV IV ONE (10:23)
[2019-05-13] MEDS ORDERED: Nitroglycerin TAB 0.4 MG* 0.4 MG TAB SL ONE (11:58)
[2019-05-13] MEDS ORDERED: Ondansetron INJ* 2 MG/ML VIAL IV PRN (11:59)
[2019-05-13] MEDS ORDERED: Acetaminophen TAB* 325 MG PO PRN (11:59)
[2019-05-13] MEDS ORDERED: Al Hydrox/Mg Hydrox/Simet LIQ* 30 ML UDC PO PRN (11:59)
[2019-05-13] MEDS ORDERED: Heparin VIAL(*) 5000 UNITS/ML VIAL (FIVE THOUSAND) IV SCH (12:00)
[2019-05-13] MEDS ORDERED: Metoprolol Tartrate TAB* 25 MG PO SCH (12:00)
[2019-05-13] MEDS ORDERED: Polyethylene Glycol 3350* 17 GM PACKET PO PRN (12:46)
[2019-05-13] MEDS ORDERED: Dextrose 50% VIAL 50 ml IV PUSH PRN (12:46)
[2019-05-13 12:56] LABS: Anion Gap 6 mmol/L (2-11); BUN/Creatinine Ratio 14.9 (8-20); Blood Urea Nitrogen 17 mg/dL (6-24); CO2 Carbon Dioxide 30 mmol/L (22-32); Chloride 103 mmol/L (101-111); EGFR African American 75.8 (>60); EGFR Non-African American 62.6 (>60); Glucose 279 mg/dL (70-100); Potassium 4.5 mmol/L (3.5-5.0); Sodium 139 mmol/L (135-145)
[2019-05-13 13:04] LABS: Troponin I 18.04 ng/mL (<0.03)
[2019-05-13] MEDS: Heparin DRIP 25,000 UNITS(*) 25,000 UNITS/500 ML BAG IV SCH (13:23)
[2019-05-13 13:29] LABS: Urine Appearance Clear; Urine Bilirubin Negative (Negative); Urine Blood Negative (Negative); Urine Color Yellow; Urine Glucose 1+(50 mg/dL) (Negative); Urine Ketones 1+ (Negative); Urine Nitrite Negative (Negative); Urine Protein Negative (Negative); Urine Specific Gravity 1.028 (1.010-1.030); Urine Urobilinogen Negative (Negative)
[2019-05-13] MEDS ORDERED: Nitroglycerin 0.1 mg/Hr PATCH* (2.5 MG) TRANSDERM ONE (13:31)
[2019-05-13] MEDS ORDERED: Perflutren Lipid Microsphere* 3 ML VIAL ONE (13:32)
[2019-05-13] MEDS ORDERED: lamoTRIgine TAB(*) 25 MG PO SCH (14:00)
[2019-05-13] MEDS ORDERED: Morphine INJ* 2 MG/ML 1 ML SYRINGE (TWO MG - NEW SYRINGE VERSION) IV PRN (15:05)
--- NOTE | 2019-05-13 15:12 | HP ---
HISTORY AND PHYSICAL: DATE OF ADMISSION: ADDENDUM: There appears to be Q-waves in his V1 through V3. Additionally, now I have discussed the patient's situation with his healthcare proxy, Bozena Saucedo , and she states the patient would be agreeable to cardiac catheterization if it was needed. She additionally notes that the patient's brother of an [place] at age 68. Additionally, she agrees the patient is still DNR/DNI. CHAR MACEDO [id number]/[facility] #: [id number] [facility]
[2019-05-13 15:40] LABS: Troponin I 22.53 ng/mL (<0.03)
--- NOTE | 2019-05-13 15:54 | HP ---
HISTORY AND PHYSICAL: DATE OF ADMISSION: 05/13/19 PROVIDER: CHAR Diehl. PRIMARY CARE PROVIDER: Dr. Flores at [facility]. ATTENDING PHYSICIAN WHILE IN THE HOSPITAL: Dr. Mustapha Aguilar * (dictated by CHAR Diehl). CHIEF COMPLAINT: Abdominal pain and chest pain. HISTORY OF PRESENT ILLNESS: Alfredito Bell is a 73-year-old white male with past medical history significant for bipolar disorder with significant behavioral disturbance and severe annabelle and psychosis, diabetes mellitus type 2, hypertension, hypothyroidism, and seizure disorder who presented to the emergency department from [facility] where he is a long-term resident due to complaints of severe abdominal pain and 1 episode of emesis. During my evaluation, the patient told me that he does not have any abdominal pain or nausea and does not remember if he has vomited, though there is nursing documentation from [facility] that he did have 1 episode of emesis. He tells me he has chest pain and points to the center of his chest; however, later he does tell a different provider that he is having abdominal pain and points to his left aspect of his abdomen. He is clearly a poor historian. He is not able to consent for himself. He does have a healthcare proxy who is his niece; her name is Bozena Saucedo. In the emergency department, the patient tells me he has chest pain and tells me he has not been improved. Medication has been given. He was refusing oral aspirin and per rectum aspirin has been ordered and is pending. He denies difficulty breathing. He does not appropriately answer other questions regarding any other associated symptoms such as radiation to the neck or sensation of lightheadedness, dizziness, or headache. EMERGENCY DEPARTMENT COURSE: His vitals when he arrived to the emergency department were temperature 98.3 degrees Fahrenheit, heart rate 90, respiratory rate 22, oxygen saturation 99%, blood pressure 136/81. He received 12.5 mg p.o. metoprolol tartrate, nitroglycerin 2% ointment, and 1 L of normal saline. His troponin was found to be 13.06 and the hospitalists were asked to evaluate the patient for admission. PAST MEDICAL HISTORY: 1. Bipolar disorder with severe annabelle and psychosis. 2. Diabetes mellitus type 2. 3. Dysphagia. 4. Hypertension. 5. Hypothyroidism. 6. History of likely diverticular bleed in November 2018. 7. Seizure disorder. 8. Urinary retention. 9. Antiphospholipid antibody syndrome. 10. Idiopathic muscle weakness. 11. GERD. 12. Legally blind. 13. Chronic constipation. PAST SURGICAL HISTORY: The patient is unable to provide this information. HOME MEDICATIONS: 1. Lamotrigine 25 mg p.o. t.i.d. 2. Maalox 30 mL p.o. q.6 hours p.r.n. for constipation. 3. Milk of Magnesia 30 mL p.o. q.4 hours p.r.n. for constipation. 4. Dulcolax suppository 1 suppository per rectum daily p.r.n. for constipation. 5. Zofran 4 mg p.o. q.12 hours p.r.n. for nausea and vomiting. 6. Cogentin 0.5 mg p.o. b.i.d. 7. Tylenol 650 mg p.o. q.4 hours p.r.n. for pain. 8. Risperdal 1 mg p.o. b.i.d. 9. Senna 2 tabs p.o. b.i.d. 10. Amitiza 24 mcg p.o. b.i.d. 11. Pravastatin 20 mg p.o. at bedtime. 12. Colace 100 mg p.o. b.i.d. 13. Omeprazole 20 mg p.o. daily. 14. Synthroid 100 mcg p.o. daily. 15. Insulin lispro 12 units subcu a.c. 16. Lasix 20 mg p.o. daily. 17. Ferrous sulfate 1 tab p.o. daily. 18. Vitamin D 1000 units p.o. daily. 19. Aspirin 81 mg p.o. daily. 20. Metoprolol 12.5 mg p.o. daily. 21. MiraLAX 17 g p.o. daily p.r.n. for constipation. 22. Clozapine 100 mg p.o. q.a.m., 200 mg p.o. q.p.m. 23. Lactulose 30 mL p.o. daily p.r.n. for constipation. 24. Fleet Enema per rectum daily p.r.n. for constipation. 25. Insulin glargine 45 units subcu a.m., 35 units subcu bedtime. ALLERGIES: 1. Unknown reaction to LEVOFLOXACIN 2. Unknown reaction to fabric softener. 3. Unknown reaction to ivory soap. FAMILY HISTORY: The patient is unable to provide this information. The niece reports that the patient's brother of an OR at age 68. SOCIAL HISTORY: The patient is a long-term resident at [facility]. As previously mentioned, his niece is his healthcare proxy on his MOLST. He is unable to tell me if he drinks or if he was previously an alcoholic, though he does frequently say that word "alcoholic," but then denies previous alcohol use. He denies tobacco use as previously mentioned. He is unable to answer further questions regarding his social history. REVIEW OF SYSTEMS: An 11-point review of systems was attempted; however, the patient does not appropriately answer questions overall. Pertinent positives and negatives are above in the HPI; other systems are negative. PHYSICAL EXAMINATION GENERAL: An obese elderly white male lying in the hospital bed, appearing comfortable, overall in no acute distress. HEENT: Eyes: Sclerae anicteric. ENT: Mucous membranes are moist. LUNGS: Faint crackles in right low base of lower lobe; otherwise, clear to auscultation. CARDIO: Regular rate and rhythm without murmurs, rubs, or gallops. No tenderness to palpation throughout the anterior chest. ABDOMEN: Normoactive bowel sounds x4 quadrants. Abdomen is soft, nontender, and nondistended without appreciable hepatosplenomegaly. EXTREMITIES: Trace nonpitting edema pedally bilaterally. NEURO: The patient is alert and oriented to self and location, but not time. As previously mentioned, answers questions inappropriately at times, but does at times answer questions appropriately. He is able to move all extremities. SKIN: Skin is warm, but he is diaphoretic in his back and there is a morbilliform- appearing rash on the right aspect of his back. It does appear consistent with allergy such as contact dermatitis. DIAGNOSTIC STUDIES/LAB DATA: EKG: Nonspecific T-wave flattening in aVL compared to previous EKG. There appear to be Q-waves in his V1 through V3. The rate is 85 beats per minute normal sinus rhythm, normal axis, T waves inverted in V1, which is consistent with previous. No ST elevations or depressions. White blood cell count 11.1, hemoglobin 14.4, hematocrit 33, platelet count 236. Sodium 139, potassium 4.4, chloride 102, carbon dioxide 28, anion gap 9, BUN 17, creatinine 1.2, lactic acid 2.7, glucose 291, calcium 9.5, magnesium 1.9. Bili is 0.8, AST 114, ALT 28, alk phos 122. Troponin 13.06, CK-MB is 212 , BNP is 497. ASSESSMENT AND PLAN: Alfredito Bell is a 73-year-old white male with past medical history significant for diabetes mellitus type 2, bipolar disorder, severe psychosis, hypertension, and hypothyroidism who presents to the emergency department due to abdominal pain and chest pain. The patient will be admitted for: 1. [id number] myocardial infarction. The patient has troponin to 13.06 with severe chest pain, but no associated EKG changes. I will repeat another troponin and EKG again in 6 hours from the initial and continue to monitor this. It is unclear if he is in fact having abdominal pain as he is a poor historian and does frequently change this complaint to multiple providers; however, given his history of constipation and he does have some abnormal LFTs, it would be of benefit to obtain the CT of abdomen and pelvis which is pending still at this time. I have ordered a chest x-ray and it is pending at this time as well. Dr. Mna has seen the patient in consultation and ordered metoprolol tartrate 25 mg p.o. q.6 hours. Per her recommendation, I have given a sublingual dose of nitroglycerin as it appears the nitro ointment has not helped his chest pain and I will order p.r.n. morphine as well. I have started a heparin drip with the initial bolus and an echocardiogram is pending. I appreciate Dr. Man's consultation and we will await further input from her. She does not believe Plavix is needed at this time. He had aspirin p.o. ordered and it is unclear at this time if his aspirin suppository has been given and this needs to be further clarified. I have discussed the patient's situation with his healthcare proxy, Bozena Saucedo, and she would be agreeable to cardiac catheterization if it was needed for this patient. 2. Abdominal pain. As previously mentioned, this symptom is unclear as the patient is a poor historian. CT abdomen and pelvis is pending. He did reportedly have an emesis episode; however, he has not complained of nausea at this time. I will continue p.r.n. Zofran and continue to monitor this. 3. Bipolar disorder. I will continue his home clozapine, Risperdal, and Cogentin. 4. Diabetes. I will continue lower dose of b.i.d. insulin glargine at 20 units b.i.d. and lispro sliding scale and check fingersticks a.c. His most recent hemoglobin A1c was in September in our electronic medical record and I will repeat this as well, which will be helpful in risk stratification. 5. Hypertension. I am ordering metoprolol. As previously mentioned, he is normotensive in the emergency department. He may likely benefit from an TASHI inhibitor and we will continue to monitor this. 6. Hypothyroidism. I will continue the patient's home Synthroid. 7. Constipation. I will continue his p.r.n. suppositories, Milk of Magnesia, Colace, senna, and lactulose for this. 8. Gastroesophageal reflux disease. I will continue the patient's home omeprazole. 9. Seizure disorder. I will continue the patient's home Lamictal. 10. Urinary retention. It does not appear that the patient is on any medication for this and we will continue to monitor this while he is in the hospital. 11. Rash. It does appear that the rash on his back is consistent with contact dermatitis, which is likely to the sheets as he does have a listed fabric softener allergy and this is possibly the case. He should have frequent change of sheets if he is diaphoretic on his back and we will continue to monitor this. 12. FEN. I will make the patient n.p.o. for now in the case that a cardiac catheterization is needed. He did receive 1 L of normal saline. No further fluids are running at this time. 13. Code status. The patient has DNR/DNI on his MOLST and I have confirmed this with his healthcare proxy. 14. DVT prophylaxis. The patient is on a heparin drip, but he does have a DVT risk score of 3. TIME SPENT: Approximately 50 minutes were spent on this admission, approximately half this time was spent at the bedside, evaluating the patient, and discussing the plan of care. This case has been reviewed with my attending, Dr. Mustapha Aguilar; he agrees with this plan of care. CHAR DIEHL [id number]/CPS #: [id number]/CPS #: [id number] INGRID
--- NOTE | 2019-05-13 16:22 | ECHO ---
*[facility]* [place] [address] Fax #: [phone] Transthoracic Echocardiogram Patient: Alfredito Bell : 1945 Study Date: 05/13/2019 Age: 73 Gender: M HR: 74 bpm Height: 67 in /170.2 cm BSA: 2.13 m^2 Weight: 224.5 lb /102.1 kg BMI: 35.2 kg/m^2 *Manager Business Process: * Agnes Thomas [facility] *Referring Physician: * Mustapha Aguilar *Reading Physician: * Angela Man MD Indications: Chest Pain, unspecified. Elevated Troponin. History: Functional status: Sleep apnea. Risk factors: Hypertension. Diabetes mellitus. Dyslipidemia. Mental health history. Conclusions Summary: - Left ventricle: Systolic function is moderately reduced. The estimated ejection fraction is 30-35%, by visual assessment. Apical akinesis extending to the septum and lateral wall mid cavity. Doppler parameters are consistent with elevated ventricular end-diastolic filling pressure. - Right ventricle: Systolic function is normal. - Mitral valve: There is mild regurgitation. - Pulmonary arteries: Systolic pressure can not be accurately estimated. - Compared with prior echocardiogram of 11/12/18, apical akinesis is new, ejection fraction has decreased from 50-55%, valve function is stabe. Study data: Transthoracic echocardiogram. Procedure: Transthoracic echocardiography was performed. Image quality was suboptimal. Intravenous Definity , 4 mlswas administered. Complete 2D, spectral Doppler, and color flow Doppler. Location: Emergency department. Patient status: Inpatient. Patient room number: ED-10. Rhythm: Normal sinus rhythm. Findings Left ventricle: The cavity size is below normal. Wall thickness is mildly increased. Systolic function is moderately reduced. The estimated ejection fraction is 30-35%, by visual assessment. Regional wall motion abnormalities: Akinesis of the mid-apicalanteroseptal, anterior, inferoseptal, and apical myocardium. Hypokinesis of the anterolateral myocardium. Doppler parameters are consistent with abnormal left ventricular relaxation (grade 1 diastolic dysfunction). Doppler parameters are consistent with elevated ventricular end-diastolic filling pressure. Right ventricle: The cavity size is normal. Wall thickness is mildly increased. Systolic function is normal. Left atrium: The atrium is normal in size. Right atrium: The atrium is normal in size. Mitral valve: The leaflets are mildly thickened. There is no evidence of stenosis. There is mild regurgitation. Aortic valve: The annulus is mildly calcified. The valve is trileaflet. The leaflets are mildly thickened. There is no evidence of stenosis. There is trace regurgitation. Tricuspid valve: The leaflets are normal thickness. There is no evidence of stenosis. There is trace regurgitation. Pulmonic valve: Not well visualized. Aorta: Aortic root: The aortic root is appears normal. Ascending aorta: The ascending aorta is appears normal. Aortic arch: The aortic arch is appears normal. Pericardium: A prominent pericardial fat pad is present. There is no significant pericardial effusion. Pulmonary arteries: The main pulmonary artery is normal-sized. Systolic pressure can not be accurately estimated. Systemic veins: Inferior vena cava: Not well visualized. Measurements Left ventricle Value Ref Right atrium Value Ref JEISON, LAX (L) 3.9 cm 4.2 - 5.8 SI dim, ES 4.4 cm 3.4 - 5.3 ESD, LAX 2.8 cm 2.5 - 4.0 ML dim, ES, A4C 3.4 cm 2.6 - 4.4 FS, LAX 29 % 25 43 Estimated RAP 8 mm Hg --------- PW, ED, LAX (H) 1.2 cm 0.6 - 1.0 FS 29 % 25 - 43 Aortic valve Value Ref PW, ED (H) 1.2 cm 0.6 - 1.0 Saad diam, ED 1.9 cm --------- E', lat saad, TDI (L) 6.7 cm/sec >=10.0 Peak v, S 0.9 m/sec ---- ----- E/e', lat saad, 16 VTI, S 16.8 cm ------- -- TDI Mean grad, S 1.0 mm Hg --------- E', med saad, TDI (L) 5.3 cm/sec >=7.0 Peak grad, S 2.0 mm Hg ---- ----- E/e', med saad, 20 LVOT/AV, VTI ratio 0.77 ------- -- TDI AYO, VTI 2.43 cm^2 --------- E', avg, TDI 6.0 cm/sec AYO, Vmax 2.16 cm^2 ------- -- E/e', avg, TDI (H) 18 <=14 Mitral valve Value Ref LVOT Value Ref Peak E 1.05 m/sec --------- Diam, S 2.00 cm Peak A 0.66 m/sec --------- Area 3.1 cm^2 Decel time 137 ms --------- Peak hunter, S 0.62 m/sec Peak grad, D 4.4 mm Hg --------- VTI, S 13.0 cm Peak E/A ratio 1.6 --------- Mean grad, S 1 mm Hg SV 42 ml Pulmonic valve Value Ref SV/bsa 20 ml/m^2 Peak v, S 0.63 m/sec --------- Peak grad, S 2.0 mm Hg --------- Ventricular septum Value Ref IVS, ED (H) 1.2 cm 0.6 - 1.0 Aortic root Value Ref Root diam 3.4 cm <4.2 Right ventricle Value Ref AW thickness, ED (H) 0.8 cm 0.1 - 0.5 Ascending aorta Value Ref JEISON, LAX 3.2 cm AAo AP diam, S 3.3 cm --------- JEISON minor ax, 3.2 cm 1.9 - 3.5 A4C mid Aortic arch Value Ref Arch diam 1.9 cm --------- Left atrium Value Ref AP dim, ES 3.90 cm 3.00 - Decending aorta Value Ref 4.00 Tera peak hunter 0.47 m/sec --------- ML dim, A4C 4.2 cm SI dim, A4C 4.4 cm Vol/bsa, ES, 1-p 23 ml/m^2 12 - 37 A4C Vol/bsa, ES, A/L 22 ml/m^2 16 - 34 Legend: (L) and (H) ramesh values outside specified reference range. Prepared and electronically signed by Angela Man MD 05/13/2019 16:21
--- NOTE | 2019-05-13 16:30 | CONSULT ---
Subjective Date of Service: 05/13/19 - CC: chest/abdominal pain Interval History: I saw and examined the patient personally in ED. The patient told me he had L CP, lower left thorax anteriorly pointed to, hand placed there. Diffuse abdominal pain, vague history. Kelsi SOB, orthopnea. Difficult historian. Family History: Unchanged from Admission - unknown Social History: Unchanged from Admission - resident of [place]. Past Medical History: Unchanged from Admission - Bipolar, DM, HTN, antiphospholipid antibody syndrome, seizure, constipation-chronic, urniary retention, hypothyroid Medications Active Medications: Acetaminophen (Tylenol Tab*) 650 mg PO Q4H PRN PRN Reason: MILD PAIN or TEMP > 100.4 Al Hydrox/Mg Hydrox/Simethicone (Maalox Plus*) 30 ml PO Q6H PRN PRN Reason: INDIGESTION Aspirin (Aspirin Ec Tab*) 81 mg PO DAILY [facility] Atorvastatin Calcium (Lipitor*) 5 mg PO BEDTIME [facility]; Protocol Benztropine Mesylate (Cogentin Tab*) 0.5 mg PO BID [facility] Bisacodyl (Dulcolax Supp*) 10 mg MI DAILY PRN PRN Reason: CONSTIPATION Cholecalciferol (Vitamin D Tab*) 1,000 units PO DAILY [facility] Clozapine (Clozapine Tab*) 100 mg PO QAM [facility] Clozapine (Clozapine Tab*) 200 mg PO BEDTIME [facility] Dextrose (Dextrose 50% Vial 50 Ml*) 25 ml IV PUSH .FOR FS < 60 - SS PRN PRN Reason: FS < 60 Docusate Sodium (Colace Cap*) 100 mg PO BID [facility] Ferrous Sulfate (Ferrous Sulfate Tab*) 325 mg PO DAILY [facility] Furosemide (Lasix Tab*) 20 mg PO DAILY [facility] Heparin Sodium (Porcine) (Heparin Vial(*)) 0 units IV .PER PROTOCOL [facility] Last Admin: 05/13/19 13:18 Dose: 4,000 units Heparin Sodium/Dextrose (Heparin Drip 25,000 Units(*)) 25,000 units in 500 mls @ 0 mls/hr IV PER RATE [facility]; Protocol Last Admin: 05/13/19 13:23 Dose: 19 mls/hr Insulin Glargine (Lantus(*)) 20 units SUBCUT Q12HR [facility] Insulin Human Lispro (Humalog*) 0 units SUBCUT AC [facility]; Protocol Lactulose (Lactulose*) 30 ml PO DAILY PRN PRN Reason: CONSTIPATION Lamotrigine (Lamictal Tab(*)) 25 mg PO TID [facility] Last Admin: 05/13/19 16:22 Dose: Not Given Levothyroxine Sodium (Synthroid Tab*) 100 mcg PO DAILY@0600 [facility] Metoprolol Tartrate (Lopressor Tab*) 25 mg PO Q6H [facility] Last Admin: 05/13/19 16:22 Dose: Not Given Morphine Sulfate (Morphine Inj (Syringe))*) 2 mg IV Q2H PRN PRN Reason: PAIN - SEVERE Ondansetron HCl (Zofran Inj*) 4 mg IV Q4H PRN PRN Reason: NAUSEA/VOMITING Pantoprazole Sodium (Protonix Tab*) 40 mg PO DAILY [facility] Polyethylene Glycol/Electrolytes (Miralax*) 17 gm PO DAILY PRN PRN Reason: CONSTIPATION Risperidone (Risperdal*) 1 mg PO BID [facility] Senna (Senokot 8.6 Mg Tab*) 2 tab PO BID [facility] Home Medications: Aspirin EC TAB* [Ecotrin EC Low Dose 81 MG*] 81 mg PO DAILY 07/30/17 [History Confirmed 05/13/19] Benztropine TAB* [Cogentin TAB*] 0.5 mg PO BID 07/30/17 [History Confirmed 05/13] Cholecalciferol TAB* [Vitamin D TAB*] 1,000 units PO DAILY 07/30/17 [History Confirmed 05/13/19] Furosemide TAB* [Lasix TAB*] 20 mg PO DAILY 07/30/17 [History Confirmed 05/13/19 ] Levothyroxine TAB* [Synthroid 100 MCG TAB*] 100 mcg PO QAM 07/30/17 [History Confirmed 05/13/19] Lubiprostone 24 MCG CAP (NF) [Amitiza (NF)] 24 mcg PO BID 07/30/17 [History Confirmed 05/13/19] Polyethylene Glycol 3350* [Miralax*] 17 gm PO DAILY PRN 07/30/17 [History Confirmed 05/13/19] Pravastatin (NF) [Pravachol (NF)] 20 mg PO BEDTIME 07/30/17 [History Confirmed 05/13/19] lamoTRIgine TAB(*) [Lamictal TAB(*)] 25 mg PO TID 07/30/17 [History Confirmed ] Bisacodyl SUPP* [Dulcolax Supp*] 1 supp MI DAILY PRN 11/11/18 [History Confirmed 05/13/19] Ferrous Sulfate 1 tab PO DAILY 11/11/18 [History Confirmed 05/13/19] Insulin Lispro [Humalog Daniel Kwikpen] 12 units SUBCUT TID AC 11/11/18 [ History Confirmed 05/13/19] Magnesium Hydroxide [Milk of Magnesia] 30 ml PO Q4H PRN 11/11/18 [History Confirmed 05/13/19] Omeprazole 20 mg PO DAILY 11/11/18 [History Confirmed 05/13/19] Ondansetron TAB* [Zofran 4 MG Tab*] 4 mg PO Q12H PRN 11/11/18 [History Confirmed 05/13/19] risperiDONE [Risperidone] 1 mg PO BID 11/11/18 [History Confirmed 05/13/19] Acetaminophen TAB* [Tylenol TAB*] 650 mg PO Q4H PRN tab 11/13/18 [Rx Confirmed 05/13/19] Docusate CAP* [Colace Cap*] 100 mg PO BID cap 11/13/18 [Rx Confirmed 05/13/19] Senna TAB 8.6 mg* [Senokot 8.6 mg TAB*] 2 tab PO BID tab 11/13/18 [Rx Confirmed 05/13/19] Al Hydrox/Mg Hydrox/Simet LIQ* [Maalox Plus*] 30 ml PO Q6H PRN udc 11/18/18 [ Rx Confirmed 05/13/19] Metoprolol Succinate XL TAB* [Toprol XL TAB*] 12.5 mg PO DAILY tab.xl 11/18/18 [Rx Confirmed 05/13/19] CloZAPine TAB* 100 mg PO QAM 05/13/19 [History Confirmed 05/13/19] CloZAPine TAB* 200 mg PO BEDTIME 05/13/19 [History Confirmed 05/13/19] Insulin Glargine,Hum.rec.anlog [Lantus Solostar 5x3 ML PENS] 35 units SUBCUT BEDTIME 05/13/19 [History Confirmed 05/13/19] Insulin Glargine,Hum.rec.anlog [Lantus Solostar 5x3 ML PENS] 45 units SUBCUT QAM 05/13/19 [History Confirmed 05/13/19] Lactulose* 30 ml PO DAILY PRN 05/13/19 [History Confirmed 05/13/19] Sodium Phosphate ADULT ENEMA* [Fleet Enema*] 1 enema MI DAILY PRN 05/13/19 [ History Confirmed 05/13/19] Review of Systems - Measurements Intake and Output: Intake and Output Last 24 Hours 05/11/19 05/12/19 05/13/19 05/14/19 04:59 04:59 04:59 04:59 Intake Total 1000 Balance 1000 Weight 225 lb Intake: IV Fluids 1000 - Review of Systems General Comments: Difficult to obtain accurately. 2-3 days CP No SOB, nausea. Unable to ascertain if diaphoresis and the patient unable to give specifics on abdominal c/o. No orthopnea. Review of Systems Statement: All other review of systems negative, unless stated above. Objective Vital Signs: Temp Pulse Resp BP Pulse Ox 97.1 F 84 20 131/65 94 05/13/19 14:55 05/13/19 14:55 05/13/19 14:55 05/13/19 14:55 05/13/19 14:55 Vital Signs - 12 hr Temp Pulse Resp BP Pulse Ox 05/13/19 14:55 97.1 F 84 20 131/65 94 05/13/19 14:54 97.6 F 79 16 126/68 96 05/13/19 14:00 81 31 92 05/13/19 13:00 80 22 96 05/13/19 12:56 81 27 117/71 97 05/13/19 12:00 81 25 97 05/13/19 11:06 116/74 05/13/19 11:00 80 22 97 05/13/19 10:35 83 33 137/79 99 05/13/19 10:05 85 22 132/82 97 05/13/19 10:00 85 19 98 05/13/19 09:36 90 19 126/87 96 05/13/19 09:06 98.3 F 90 22 136/81 91 05/13/19 09:05 89 23 136/81 92 05/13/19 09:04 88 92 Oxygen Devices in Use Now: Nasal Cannula Eyes: No Scleral Icterus Ears/Nose/Mouth/Throat: Clear Oropharnyx, Mucous Membranes Moist Neck: NL Appearance and Movements; NL JVP Respiratory: Symmetrical Chest Expansion and Respiratory Effort, Clear to Auscultation Cardiovascular: NL Sounds; No Murmurs; No JVD, RRR Abdominal: No Hepatosplenomegaly - obese, soft, non tender to light palpation. Extremities: No Edema Skin: - - macular papular rash on upper back to mid back Neurological: - - severely abnormal demenor, answers questions intermittently. Laboratory Results: 05/13/19 09:29 05/13/19 12:00 Total Bilirubin 0.80 mg/dL (0.2-1.0) 05/13/19 09:29 AST 114 U/L (13-39) H 05/13/19 09:29 ALT 28 U/L (7-52) 05/13/19 09:29 Alkaline Phosphatase 122 U/L (34-104) H 05/13/19 09:29 CK-MB (CK-2) 212.0 ng/mL (0.6-6.3) H 05/13/19 09:29 B-Natriuretic Peptide 497 pg/mL (<=100) H 05/13/19 09:29 Total Protein 7.3 g/dL (6.4-8.9) 05/13/19 09:29 Albumin 3.9 g/dL (3.2-5.2) 05/13/19 09:29 Globulin 3.4 g/dL (2-4) 05/13/19 09:29 Albumin/Globulin Ratio 1.1 (1-3) 05/13/19 09:29 1205/13/19 05/13/19 09:29 12:00 15:12 Troponin I 13.06 H* 18.04 H* 22.53 H* Diagnostic Imaging: *[facility]* [place] [address] Fax #: [phone] Transthoracic Echocardiogram Patient: Alfredito Bell : 1945 Study Date: 05/13/2019 Age: 73 Gender: M HR: 74 bpm Height: 67 in /170.2 cm BSA: 2.13 m^2 Weight: 224.5 lb /102.1 kg BMI: 35.2 kg/m^2 *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 Elevated Troponin. History: Functional status: Sleep apnea. Risk factors: Hypertension. Diabetes mellitus. Dyslipidemia. Mental health history. Conclusions Summary: - Left ventricle: Systolic function is moderately reduced. The estimated ejection fraction is 30-35%, by visual assessment. Apical akinesis extending to the septum and lateral wall mid cavity. Doppler parameters are consistent with elevated ventricular end-diastolic filling pressure. - Right ventricle: Systolic function is normal. - Mitral valve: There is mild regurgitation. - Pulmonary arteries: Systolic pressure can not be accurately estimated. - Compared with prior echocardiogram of 11/12/18, apical akinesis is new, ejection fraction has decreased from 50-55%, valve function is stabe. Patient Name: ALFREDITO BELL Medical Record#: [id number] Ordering Physician: Jack Dixon MD Acct.#: [id number] : 1945 Age: 73 Sex: M Location: EMERGENCY DEPARTMENT Exam Date: 05/13/19919 ADM Status: REG ER Order Information: CT ABD/PEL W Accession Number: [id number] CPT: 80412 Indication: Abdominal pain. Contrast: Administered 128.0 ml of VISAPAQUE 320 mg/ml CT of the abdomen and pelvis was performed after oral and IV contrast administration. Coronal and sagittal reconstructed images were obtained. Comparison is made with previous exam dated July 30, 2017. The lung bases demonstrate cardiomegaly. Dependent bibasilar atelectasis with pleural thickening is noted in the lung bases. The heart demonstrates no pericardial effusion. The heart is enlarged. The liver is normal in size. It is diffusely decreased in density consistent with hepatic steatosis. The gallbladder demonstrates calcified gallstones. No pericholecystic fluid or wall thickening is noted. The spleen is normal in size. No adrenal masses are noted. The kidneys demonstrate symmetric nephrograms. Cortical cyst is noted in the right kidney. This measures up to 1.5 cm. No retroperitoneal lymphadenopathy is noted. The pancreas demonstrates no mass or pancreatic duct dilatation. No dilated loops of bowel are noted. Atherosclerotic aorta is noted without evidence of aneurysmal dilatation. Inferior vena cava is unremarkable. Small bowel demonstrates no abnormal dilatation. The colon is filled with stool. The appendix is visualized and is normal. No hernias are noted. Prostate and urinary bladder are unremarkable. IMPRESSION: Stool throughout the colon. No bowel obstruction is noted. No evidence of obstructive uropathy is noted. Atherosclerotic aorta is noted. There is cholelithiasis noted. Hepatic steatosis is noted. Bibasilar atelectasis is present. <Electronically signed by Jessica Ford MD in [place]> 05/13/19 1302 Dictated By: Jessica Ford MD Dictated Date/Time: 05/13/19 1253 Transcribed Date/Time: 05/13/19 1253 EKG Data: NSR, Q's precordial leads, new c/w old ECG's. Assessment/Plan 73 yo admitted with CP, elevated troponins, new anterior Q waves and ECHO showing new akinesis of the apex and anterior wall. Recent/evolving DC. Based on Q waves in ED and several day hx of chest pain I recommended medical management. Troponins increasing, per reports the patient is spitting out oral metoprolol, and NH allows patient to miss medications. The patient is not a good candidate for interventional cardiology based on compliance and although an evolving DC, new Q's suggesting not a lot of myocardium to save. I did discuss with interventional cardiology. To optimize medical management: -IV metoprolol as discussed with goal of HR in 60's keeping SBP >=110. -IV heparin on board -If the patient will take: add Plavix 600 mg x 1 qnd 75 mg/day -ACEI if BP allows after above. Atorvastatin 80 mg (was on 5 mg and LDL in November was 97)-I increased. Added CK and CK MB's as per Dr Matta's recommendation to help evaluate ischemia. The patient's inability to comply with medication recommendations is significantly hampering our ability to optimally treat. I am aware and agree with psychiatric consult to assist us with management.
[2019-05-13] MEDS ORDERED: Clopidogrel TAB* 300 MG PO ONE (16:55)
[2019-05-13 17:43] LABS: TSH (Thyroid Stimulating Horm) 1.71 mcIU/mL (0.34-5.60)
[2019-05-13 17:45] LABS: Free T4 0.9 ng/dL (0.61-1.12)
[2019-05-13] MEDS: Insulin LISPRO* 1 UNITS UNIT SUBCUT SCH (18:08)
[2019-05-13] MEDS: Atorvastatin* 80 MG TAB PO SCH ×2 (18:08→21:30)
[2019-05-13 19:20] LABS: Troponin I 31.18 ng/mL (<0.03)
[2019-05-13 19:25] LABS: Creatine Kinase 1701 U/L (10-223)
[2019-05-13] MEDS: Metoprolol Tartrate IV* 1 MG/ML 5 ML VIAL IV SCH ×2 (19:33→22:13)
[2019-05-13] MEDS: levETIRAcetam 500 MG IVPREMIX* 500 MG/100 ML BAG IV SCH (19:33)
[2019-05-13] MEDS: Docusate CAP* 100 MG PO SCH (20:26)
[2019-05-13] MEDS: CloZAPine TAB* 100 MG TAB PO SCH (20:26)
[2019-05-13] MEDS: Benztropine TAB* 1 MG PO SCH (20:26)
[2019-05-13] MEDS: risperiDONE TAB* 1 MG PO SCH (20:26)
[2019-05-13] MEDS: Senna TAB 8.6 mg* TAB PO SCH (20:26)
[2019-05-13] MEDS ORDERED: Atorvastatin* 10 MG TAB PO SCH (21:00)
[2019-05-13] MEDS ORDERED: nitroGLYCERIN DRIP* 25,000 MCG/250 ML BTL IV SCH (21:00)
--- NOTE | 2019-05-13 21:23 | PN ---
Cardiology Progress Note Date of Service: 05/13/19 - CC: CP The patient was moved to ICU for worsening pain/angina. I saw the patient again, can't/wont' quantify pain but states it is horrible. I discussed options to improve pain: Medications and intervention. The patient states he won't take medications "I'll " I told him I was afraid he would w/o medications. He is not interested in cardiac catheterization. Vital Signs - 12 hr Temp Pulse Resp BP Pulse Ox 05/13/19 21:10 16 05/13/19 21:01 98.9 F 70 16 95/69 95 05/13/19 21:00 73 18 103/67 96 05/13/19 20:48 70 16 95/69 95 05/13/19 19:56 20 05/13/19 19:32 20 05/13/19 19:30 97.3 F 85 20 121/74 98 05/13/19 17:18 20 05/13/19 14:55 97.1 F 84 20 131/65 94 05/13/19 14:54 97.6 F 79 16 126/68 96 05/13/19 14:39 126/68 05/13/19 14:00 81 31 92 05/13/19 13:00 80 22 96 05/13/19 12:56 81 27 117/71 97 05/13/19 12:00 81 25 97 05/13/19 11:06 116/74 05/13/19 11:00 80 22 97 05/13/19 10:35 83 33 137/79 99 05/13/19 10:05 85 22 132/82 97 05/13/19 10:00 85 19 98 05/13/19 09:36 90 19 126/87 96 Pale, lying at 30 degrees. Appears ill. Rash on back unchanged. Lungs clear laterally S1S2 regular, distant ECG's tonight show NSR, anterior Q's, progression in ST elevation inferior leads III aVF. WBC 11.1 10^3/uL (3.5-10.8) H 05/13/19 09:29 RBC 5.00 10^6 /uL (4.18-5.48) 05/13/19 09:29 Hgb 14.4 g/dL (14.0-18.0) 05/13/19 09:29 Hct 43 % (42-52) 05/13/19 09:29 MCV 87 fL (80-94) 05/13/19 09: MCH 29 pg (27-31) 05/13/19 09: MCHC 33 g/dL (31-36) 05/13/19 09:29 RDW 14 % (10-15) 05/13/19 09:29 Plt Count 236 10^3/uL (150-450) 05/13/19 09:29 MPV 7.3 fL (7.4-10.4) L 05/13/19 09:29 Neut % (Auto) 86.2 % 05/13/19 09: Lymph % (Auto) 6.0 % 05/13/19 09: Archer % (Auto) 7.3 % 05/13/19 09: Eos % (Auto) 0.0 % 05/13/19 09: Baso % (Auto) 0.5 % 05/13/19 09: Absolute Neuts (auto) 9.6 10^3/ul (1.5-7.7) H 05/13/19 09:29 Absolute Lymphs (auto) 0.7 10^3/ul (1.0-4.8) L 05/13/19 09: Absolute Monos (auto) 0.8 10^3/ul (0-0.8) 05/13/19 09: Absolute Eos (auto) 0.0 10^3/ul (0-0.6) 05/13/19 09: Absolute Basos (auto) 0.1 10^3/ul (0-0.2) 05/13/19 09: Absolute Nucleated RBC 0.0 10^3/ul 05/13/19 09: Nucleated RBC % 0.0 05/13/19 09:29 APTT >240.0 seconds (26.0-38.0) H* 05/13/19 15:40 Sodium 139 mmol/L (135-145) 05/13/19 12:00 Potassium 4.5 mmol/L (3.5-5.0) 05/13/19 12:00 Chloride 103 mmol/L (101-111) 05/13/19 12:00 Carbon Dioxide 30 mmol/L (22-32) 05/13/19 12:00 Anion Gap 6 mmol/L (2-11) 05/13/19 12:00 BUN 17 mg/dL (6-24) 05/13/19 12:00 Creatinine 1.14 mg/dL (0.67-1.17) 05/13/19 12:00 Est GFR ( Amer) 75.8 (>60) 05/13/19 12:00 Est GFR (Non-Af Amer) 62.6 (>60) 05/13/19 12:00 BUN/Creatinine Ratio 14.9 (8-20) 05/13/19 12:00 Glucose 279 mg/dL (70-100) H 05/13/19 12:00 POC Glucose (mg/dL) 268 mg/dL (70-100) H 05/13/19 18:01 Lactic Acid 2.1 mmol/L (0.5-2.0) H* 05/13/19 18:52 Calcium 9.0 mg/dL (8.6-10.3) 05/13/19 12:00 Magnesium 1.9 mg/dL (1.9-2.7) 05/13/19 09:29 Total Bilirubin 0.80 mg/dL (0.2-1.0) 05/13/19 09:29 AST 114 U/L (13-39) H 05/13/19 09:29 ALT 28 U/L (7-52) 05/13/19 09:29 Alkaline Phosphatase 122 U/L (34-104) H 05/13/19 09:29 Total Creatine Kinase 1701 U/L (10-223) H 05/13/19 18:52 CK-MB (CK-2) 212.0 ng/mL (0.6-6.3) H 05/13/19 09:29 Troponin I 31.18 ng/mL (<0.03) H* 05/13/19 18:52 C-Reactive Protein 12.86 mg/L (<8.01) H 05/13/19 09:29 B-Natriuretic Peptide 497 pg/mL (<=100) H 05/13/19 09:29 Total Protein 7.3 g/dL (6.4-8.9) 05/13/19 09:29 Albumin 3.9 g/dL (3.2-5.2) 05/13/19 09:29 Globulin 3.4 g/dL (2-4) 05/13/19 09:29 Albumin/Globulin Ratio 1.1 (1-3) 05/13/19 09:29 Lipase < 10 U/L (11.0-82.0) L 05/13/19 09:29 TSH 1.71 mcIU/mL (0.34-5.60) 05/13/19 09:28 Free T4 0.90 ng/dL (0.61-1.12) 05/13/19 09:28 Urine Color Yellow 05/13/19 13:08 Urine Appearance Clear 05/13/19 13:08 Urine pH 6.0 (5-9) 05/13/19 13:08 Ur Specific [place] 1.028 (1.010-1.030) 05/13/19 13:08 Urine Protein Negative (Negative) 05/13/19 13:08 Urine Ketones 1+ (Negative) A 05/13/19 13:08 Urine Blood Negative (Negative) 05/13/19 13:08 Urine Nitrate Negative (Negative) 05/13/19 13:08 Urine Bilirubin Negative (Negative) 05/13/19 13:08 Urine Urobilinogen Negative (Negative) 05/13/19 13:08 Ur Leukocyte Esterase Negative (Negative) 05/13/19 13:08 Urine Glucose 1+(50 mg/dl) (Negative) A 05/13/19 13:08 A/P 73 yo with evolving AW and IW LA with ongoing angina. The patient has been declining oral medications. Trying to give IV meds as able. The patient is DNR/DNI and also declined cardiac catheterization. I discussed again with interventional cardiology, still not felt to be an interventional candidate as DNR, pt not wanting to proceed and patient declining medications (post prodecure antiplatelet treatment is essential for stents to stay patent). I called the patient's neice, discussed the patient's declining meds and not wanting invasive procedures. The niece stated his siblings have , he's had a hard life, she wonders if he is ready to go/wants to go. She is going to communicate to other family Mr. eBll's medical status. I appraised her of our limitations of treating with IV meds only. I made her aware of potential complications of LA including CHF, VT/VF, life threatening complications. The current plan is to continue with medical management as the patient allows. Pain control as vitals allow. I discussed the case with night Hospitalist Dr Hollis as well. 1 hour of time was spent on acute care, >50% of it face to face with the patient.
[2019-05-13] MEDS: Insulin GLARGINE(*) 1 UNITS UNIT SUBCUT SCH (21:32)
[2019-05-13 22:28] LABS: Troponin I 35.31 ng/mL (<0.03)
[2019-05-14 00:47] LABS: Anion Gap 6 mmol/L (2-11); BUN/Creatinine Ratio 15.7 (8-20); Blood Urea Nitrogen 16 mg/dL (6-24); CO2 Carbon Dioxide 27 mmol/L (22-32); Calcium 8.4 mg/dL (8.6-10.3); Chloride 107 mmol/L (101-111); EGFR African American 86.2 (>60); EGFR Non-African American 71.2 (>60); Glucose 259 mg/dL (70-100); Sodium 140 mmol/L (135-145)
[2019-05-14 02:00] LABS: Urine Appearance Clear; Urine Bilirubin Negative (Negative); Urine Blood Negative (Negative); Urine Color Yellow; Urine Glucose 1+(50 mg/dL) (Negative); Urine Ketones Trace (Negative); Urine Nitrite Negative (Negative); Urine Protein Negative (Negative); Urine Specific Gravity > 1.060 (1.010-1.030); Urine Urobilinogen Negative (Negative)
[2019-05-14 02:06] LABS: Urine Bacteria Absent (Absent); Urine Red Blood Cell Absent (Absent); Urine White Blood Cell Absent (Absent)
[2019-05-14] MEDS: Metoprolol Tartrate IV* 1 MG/ML 5 ML VIAL IV SCH ×2 (02:24→08:24)
[2019-05-14 05:05] LABS: ABS Basophils 0.1 10^3/ul (0-0.2); ABS Lymphocytes 0.6 10^3/ul (1.0-4.8); ABS Monocytes 1.1 10^3/ul (0-0.8); ABS Neutrophils 10.1 10^3/ul (1.5-7.7); Hematocrit 42 % (42-52); Hemoglobin 14.1 g/dL (14.0-18.0); Lymphocyte % 5.3 %; Mean Corpuscular HGB Conc 34 g/dL (31-36); Mean Corpuscular Hemoglobin 30 pg (27-31); Mean Corpuscular Volume 87 fL (80-94); Mean Platelet Volume 7.6 fL (7.4-10.4); Nucleated Red Blood Cells % 0.1; Platelet Count 225 10^3/uL (150-450); Red Blood Count 4.77 10^6 /uL (4.18-5.48); Red Cell Distribution Width 14 % (10-15); White Blood Count 11.9 10^3/uL (3.5-10.8)
[2019-05-14 05:20] LABS: Troponin I 36.63 ng/mL (<0.03)
[2019-05-14] MEDS: levETIRAcetam 500 MG IVPREMIX* 500 MG/100 ML BAG IV SCH ×2 (05:33→17:26)
[2019-05-14] MEDS: Levothyroxine INJ* 100 MCG/5 ML VIAL IV SCH (05:40)
[2019-05-14] MEDS ORDERED: Levothyroxine TAB* 100 MCG TAB PO SCH (06:00)
[2019-05-14] MEDS: Insulin LISPRO* 1 UNITS UNIT SUBCUT SCH ×3 (08:38→16:29)
[2019-05-14] MEDS: Benztropine TAB* 1 MG PO SCH ×2 (08:39→21:14)
[2019-05-14] MEDS: Aspirin EC TAB* 81 MG TAB.EC PO SCH (08:39)
[2019-05-14] MEDS: Cholecalciferol TAB* 1000 UNITS PO SCH (08:39)
[2019-05-14] MEDS: Docusate CAP* 100 MG PO SCH ×2 (08:39→21:15)
[2019-05-14] MEDS: Clopidogrel TAB* 75 MG PO SCH (08:39)
[2019-05-14] MEDS: CloZAPine TAB* 100 MG TAB PO SCH ×2 (08:39→21:14)
[2019-05-14] MEDS: Senna TAB 8.6 mg* TAB PO SCH ×2 (08:40→21:15)
[2019-05-14] MEDS: risperiDONE TAB* 1 MG PO SCH ×2 (08:40→21:15)
[2019-05-14] MEDS: Ferrous Sulfate TAB* 325 MG PO SCH (08:40)
[2019-05-14] MEDS: Insulin GLARGINE(*) 1 UNITS UNIT SUBCUT SCH ×2 (08:40→21:27)
[2019-05-14] MEDS: Furosemide TAB* 20 MG PO SCH (08:40)
[2019-05-14] MEDS: Pantoprazole TAB * 40 MG TAB PO SCH (08:40)
--- NOTE | 2019-05-14 09:30 | PN ---
Subjective Date of Service: 05/14/19 Interval History: f/u medically managed acute ID - No current chest or abdomen pain - Intermittent non-adherence with oral medication complicating care - No arrhythmias or heart block on telemetry noted Medications Active Medications: Acetaminophen (Tylenol Tab*) 650 mg PO Q4H PRN PRN Reason: MILD PAIN or TEMP > 100.4 Al Hydrox/Mg Hydrox/Simethicone (Maalox Plus*) 30 ml PO Q6H PRN PRN Reason: INDIGESTION Aspirin (Aspirin Ec Tab*) 81 mg PO DAILY [facility] Last Admin: 05/14/19 08:39 Dose: Not Given Atorvastatin Calcium (Lipitor*) 80 mg PO BEDTIME [facility]; Protocol Last Admin: 05/13/19 21:30 Dose: Not Given Benztropine Mesylate (Cogentin Tab*) 0.5 mg PO BID [facility] Last Admin: 05/14/19 08:39 Dose: Not Given Bisacodyl (Dulcolax Supp*) 10 mg [place] DAILY PRN PRN Reason: CONSTIPATION Cholecalciferol (Vitamin D Tab*) 1,000 units PO DAILY [facility] Last Admin: 05/14/19 08:39 Dose: Not Given Clopidogrel Bisulfate (Plavix Tab*) 75 mg PO DAILY [facility] Last Admin: 05/14/19 08:39 Dose: Not Given Clozapine (Clozapine Tab*) 100 mg PO QAM [facility] Last Admin: 05/14/19 08:39 Dose: Not Given Clozapine (Clozapine Tab*) 200 mg PO BEDTIME [facility] Last Admin: 05/13/19 20:26 Dose: Not Given Dextrose (Dextrose 50% Vial 50 Ml*) 25 ml IV PUSH .FOR FS < 60 - SS PRN PRN Reason: FS < 60 Docusate Sodium (Colace Cap*) 100 mg PO BID [facility] Last Admin: 05/14/19 08:39 Dose: Not Given Ferrous Sulfate (Ferrous Sulfate Tab*) 325 mg PO DAILY [facility] Last Admin: 05/14/19 08:40 Dose: Not Given Furosemide (Lasix Tab*) 20 mg PO DAILY [facility] Last Admin: 05/14/19 08:40 Dose: Not Given Heparin Sodium (Porcine) (Heparin Vial(*)) 0 units IV .PER PROTOCOL [facility] Last Admin: 05/13/19 13:18 Dose: 4,000 units Heparin Sodium/Dextrose (Heparin Drip 25,000 Units(*)) 25,000 units in 500 mls @ 0 mls/hr IV PER RATE [facility]; Protocol Last Admin: 05/13/19 13:23 Dose: 19 mls/hr Levetiracetam (Keppra Iv Premix*) 500 mg in 100 mls @ 400 mls/hr IV Q12H [facility] Last Admin: 05/14/19 05:33 Dose: 400 mls/hr Insulin Glargine (Lantus(*)) 20 units SUBCUT Q12HR [facility] Last Admin: 05/14/19 08:40 Dose: Not Given Insulin Human Lispro (Humalog*) 0 units SUBCUT AC [facility]; Protocol Last Admin: 05/14/19 08:38 Dose: Not Given Lactulose (Lactulose*) 30 ml PO DAILY PRN PRN Reason: CONSTIPATION Levothyroxine Sodium (Synthroid Inj*) 50 mcg IV 0600 [facility] Last Admin: 05/14/19 05:40 Dose: 50 mcg Metoprolol Tartrate (Lopressor Iv*) 5 mg IV Q4H [facility] Last Admin: 05/14/19 08:24 Dose: Not Given Morphine Sulfate (Morphine Inj (Syringe))*) 2 mg IV Q2H PRN PRN Reason: PAIN - SEVERE Last Admin: 05/13/19 19:32 Dose: 2 mg Ondansetron HCl (Zofran Inj*) 4 mg IV Q4H PRN PRN Reason: NAUSEA/VOMITING Pantoprazole Sodium (Protonix Tab*) 40 mg PO DAILY [facility] Last Admin: 05/14/19 08:40 Dose: Not Given Polyethylene Glycol/Electrolytes (Miralax*) 17 gm PO DAILY PRN PRN Reason: CONSTIPATION Risperidone (Risperdal*) 1 mg PO BID [facility] Last Admin: 05/14/19 08:40 Dose: Not Given Senna (Senokot 8.6 Mg Tab*) 2 tab PO BID [facility] Last Admin: 05/14/19 08:40 Dose: Not Given Objective Vital Signs: Temp Pulse Resp BP Pulse Ox 99.7 F 77 22 104/64 94 05/14/19 09:00 05/14/19 09:00 05/14/19 09:07 05/14/19 09:00 05/14/19 09:00 Oxygen Devices in Use Now: Nasal Cannula Appearance: not distressed apeparing Ears/Nose/Mouth/Throat: Clear Oropharnyx Neck: - - uncertain jvp Respiratory: Symmetrical Chest Expansion and Respiratory Effort, Clear to Auscultation Cardiovascular: RRR, No Edema, - - no significant murmur Abdominal: No Hepatosplenomegaly - obese, soft, non tender to light palpation. Extremities: No Edema Skin: - Neurological: - Laboratory Results: 05/14/19 04:37 05/14/19 00:21 APTT 94.0 seconds (26.0-38.0) H 05/14/19 04:37 Total Bilirubin 0.80 mg/dL (0.2-1.0) 05/13/19 09:29 AST 114 U/L (13-39) H 05/13/19 09:29 ALT 28 U/L (7-52) 05/13/19 09:29 Alkaline Phosphatase 122 U/L (34-104) H 05/13/19 09:29 CK-MB (CK-2) 212.0 ng/mL (0.6-6.3) H 05/13/19 09:29 B-Natriuretic Peptide 497 pg/mL (<=100) H 05/13/19 09:29 Total Protein 7.3 g/dL (6.4-8.9) 05/13/19 09:29 Albumin 3.9 g/dL (3.2-5.2) 05/13/19 09:29 Globulin 3.4 g/dL (2-4) 05/13/19 09:29 Albumin/Globulin Ratio 1.1 (1-3) 05/13/19 09:29 TSH 1.71 mcIU/mL (0.34-5.60) 05/13/19 09:28 05/13/19 05/13/19 05/13/19 09:29 12:00 15:12 Troponin I 13.06 H* 18.04 H* 22.53 H* 05/13/19 05/13/19 05/14/19 18:52 21:20 00:21 Troponin I 31.18 H* 35.31 H* 38.50 H* 05/14/19 04:37 Troponin I 36.63 H* Diagnostic Imaging: *[facility]* [place] [address] Fax #: [phone] Transthoracic Echocardiogram Patient: Alfredito Bell : 1945 Study Date: 05/13/2019 Age: 73 Gender: M HR: 74 bpm Height: 67 in /170.2 cm BSA: 2.13 m^2 Weight: 224.5 lb /102.1 kg BMI: 35.2 kg/m^2 *Manager [place]: * Agnes Thomas RD *Referring Physician: * Mustapha Aguilar *Reading Physician: * Angela Man MD Indications: Chest Pain, unspecified. Elevated Troponin. History: Functional status: Sleep apnea. Risk factors: Hypertension. Diabetes mellitus. Dyslipidemia. Mental health history. Conclusions Summary: - Left ventricle: Systolic function is moderately reduced. The estimated ejection fraction is 30-35%, by visual assessment. Apical akinesis extending to the septum and lateral wall mid cavity. Doppler parameters are consistent with elevated ventricular end-diastolic filling pressure. - Right ventricle: Systolic function is normal. - Mitral valve: There is mild regurgitation. - Pulmonary arteries: Systolic pressure can not be accurately estimated. - Compared with prior echocardiogram of 11/12/18, apical akinesis is new, ejection fraction has decreased from 50-55%, valve function is stabe. Exam Date: 05/13/19 IMPRESSION: Stool throughout the colon. No bowel obstruction is noted. No evidence of obstructive uropathy is noted. Atherosclerotic aorta is noted. There is cholelithiasis noted. Hepatic steatosis is noted. Bibasilar atelectasis is present. 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 D/c iv lopressor and topical nitrates ( ordered) - continue precinct captain lasix 20 mg po daily - Will add aceI/ARB eventually - DM management per Primary service - Medication adherence recommended to patient to reduce risk of recurrent ID, decompensated HF and
--- NOTE | 2019-05-14 09:52 | PN ---
Subjective Date of Service: 05/14/19 Interval History: Alfredito denies any pain at this time. His speech is hard to understand at times but this is his baseline. He reportedly has been spitting out meds or refusing to take them. I will contact nursing at to discuss how they give meds there. Objective Active Medications: Acetaminophen (Tylenol Tab*) 650 mg PO Q4H PRN PRN Reason: MILD PAIN or TEMP > 100.4 Al Hydrox/Mg Hydrox/Simethicone (Maalox Plus*) 30 ml PO Q6H PRN PRN Reason: INDIGESTION Aspirin (Aspirin Ec Tab*) 81 mg PO DAILY [facility] Last Admin: 05/14/19 08:39 Dose: Not Given Aspirin (Asa Supp*) 300 mg [place] DAILY [facility] Atorvastatin Calcium (Lipitor*) 80 mg PO BEDTIME [facility]; Protocol Last Admin: 05/13/19 21:30 Dose: Not Given Benztropine Mesylate (Cogentin Tab*) 0.5 mg PO BID [facility] Last Admin: 05/14/19 08:39 Dose: Not Given Bisacodyl (Dulcolax Supp*) 10 mg [place] DAILY PRN PRN Reason: CONSTIPATION Carvedilol (Coreg Tab*) 3.125 mg PO BID [facility] Cholecalciferol (Vitamin D Tab*) 1,000 units PO DAILY [facility] Last Admin: 05/14/19 08:39 Dose: Not Given Clopidogrel Bisulfate (Plavix Tab*) 75 mg PO DAILY [facility] Last Admin: 05/14/19 08:39 Dose: Not Given Clozapine (Clozapine Tab*) 100 mg PO QAM [facility] Last Admin: 05/14/19 08:39 Dose: Not Given Clozapine (Clozapine Tab*) 200 mg PO BEDTIME [facility] Last Admin: 05/13/19 20:26 Dose: Not Given Dextrose (Dextrose 50% Vial 50 Ml*) 25 ml IV PUSH .FOR FS < 60 - SS PRN PRN Reason: FS < 60 Docusate Sodium (Colace Cap*) 100 mg PO BID [facility] Last Admin: 05/14/19 08:39 Dose: Not Given Ferrous Sulfate (Ferrous Sulfate Tab*) 325 mg PO DAILY [facility] Last Admin: 05/14/19 08:40 Dose: Not Given Furosemide (Lasix Tab*) 20 mg PO DAILY [facility] Last Admin: 05/14/19 08:40 Dose: Not Given Heparin Sodium (Porcine) (Heparin Vial(*)) 0 units IV .PER PROTOCOL [facility] Last Admin: 05/13/19 13:18 Dose: 4,000 units Heparin Sodium/Dextrose (Heparin Drip 25,000 Units(*)) 25,000 units in 500 mls @ 0 mls/hr IV PER RATE [facility]; Protocol Last Admin: 05/13/19 13:23 Dose: 19 mls/hr Levetiracetam (Keppra Iv Premix*) 500 mg in 100 mls @ 400 mls/hr IV Q12H [facility] Last Admin: 05/14/19 05:33 Dose: 400 mls/hr Insulin Glargine (Lantus(*)) 20 units SUBCUT Q12HR [facility] Last Admin: 05/14/19 08:40 Dose: Not Given Insulin Human Lispro (Humalog*) 0 units SUBCUT AC [facility]; Protocol Last Admin: 05/14/19 08:38 Dose: Not Given Lactulose (Lactulose*) 30 ml PO DAILY PRN PRN Reason: CONSTIPATION Levothyroxine Sodium (Synthroid Inj*) 50 mcg IV 0600 [facility] Last Admin: 05/14/19 05:40 Dose: 50 mcg Morphine Sulfate (Morphine Inj (Syringe))*) 2 mg IV Q2H PRN PRN Reason: PAIN - SEVERE Last Admin: 05/13/19 19:32 Dose: 2 mg Ondansetron HCl (Zofran Inj*) 4 mg IV Q4H PRN PRN Reason: NAUSEA/VOMITING Pantoprazole Sodium (Protonix Tab*) 40 mg PO DAILY [facility] Last Admin: 05/14/19 08:40 Dose: Not Given Polyethylene Glycol/Electrolytes (Miralax*) 17 gm PO DAILY PRN PRN Reason: CONSTIPATION Risperidone (Risperdal*) 1 mg PO BID [facility] Last Admin: 05/14/19 08:40 Dose: Not Given Senna (Senokot 8.6 Mg Tab*) 2 tab PO BID [facility] Last Admin: 05/14/19 08:40 Dose: Not Given Vital Signs - 8 hr 05/14/19 05/14/19 05/14/19 01:45 02:00 02:15 Temperature Pulse Rate 78 77 74 Respiratory 22 20 18 Rate Blood Pressure 110/73 106/69 108/69 (mmHg) O2 Sat by Pulse 96 96 97 Oximetry 05/14/19 05/14/19 05/14/19 02:30 02:45 03:00 Temperature 99.7 F Pulse Rate 73 71 72 Respiratory 17 17 14 Rate Blood Pressure 104/68 102/64 104/69 (mmHg) O2 Sat by Pulse 97 96 97 Oximetry 05/14/19 05/14/19 05/14/19 03:15 03:30 03:45 Temperature 99.7 F 99.7 F 99.7 F Pulse Rate 72 73 75 Respiratory 20 20 16 Rate Blood Pressure 101/67 102/69 106/69 (mmHg) O2 Sat by Pulse 97 96 96 Oximetry 05/14/19 05/14/19 05/14/19 04:00 04:15 04:35 Temperature 99.7 F 99.7 F 99.7 F Pulse Rate 74 75 76 Respiratory 16 18 24 Rate Blood Pressure 109/70 107/66 112/71 (mmHg) O2 Sat by Pulse 96 96 95 Oximetry 05/14/19 05/14/19 05/14/19 04:45 05:00 05:15 Temperature 99.7 F 99.7 F 99.7 F Pulse Rate 75 76 77 Respiratory 17 19 16 Rate Blood Pressure 113/68 109/68 111/71 (mmHg) O2 Sat by Pulse 97 97 97 Oximetry 05/14/19 05/14/19 05/14/19 05:30 05:45 06:00 Temperature 99.7 F 99.7 F 99.7 F Pulse Rate 75 74 76 Respiratory 15 20 14 Rate Blood Pressure 105/66 109/70 90/72 (mmHg) O2 Sat by Pulse 97 97 95 Oximetry 05/14/19 05/14/19 05/14/19 06:15 06:30 06:45 Temperature 99.7 F 99.7 F 99.7 F Pulse Rate 73 77 73 Respiratory 21 16 19 Rate Blood Pressure 109/69 112/72 104/68 (mmHg) O2 Sat by Pulse 96 96 96 Oximetry 05/14/19 05/14/19 05/14/19 07:00 07:15 07:30 Temperature 99.7 F 99.7 F 99.7 F Pulse Rate 73 75 78 Respiratory 17 15 16 Rate Blood Pressure 112/68 108/70 108/71 (mmHg) O2 Sat by Pulse 96 96 97 Oximetry 12/05/19 12/05/19 12/05/19 07:45 08:00 08:15 Temperature 99.7 F 99.7 F 99.7 F Pulse Rate 79 73 78 Respiratory 18 22 22 Rate Blood Pressure 111/74 107/67 110/69 (mmHg) O2 Sat by Pulse 98 95 95 Oximetry 05/14/19 05/14/19 05/14/19 08:30 08:45 09:00 Temperature 99.7 F 99.7 F 99.7 F Pulse Rate 78 80 77 Respiratory 19 18 Rate Blood Pressure 112/72 104/71 104/64 (mmHg) O2 Sat by Pulse 97 96 94 Oximetry 05/14/19 09:07 Temperature Pulse Rate Respiratory 22 Rate Blood Pressure (mmHg) O2 Sat by Pulse Oximetry Oxygen Devices in Use Now: Nasal Cannula Appearance: Elderly male lying in bed, mumbling to self with eyes closed, NAD Eyes: No Scleral Icterus Ears/Nose/Mouth/Throat: Mucous Membranes Moist Respiratory: Symmetrical Chest Expansion and Respiratory Effort, Clear to Auscultation - anteriorly Cardiovascular: NL Sounds; No Murmurs; No JVD, RRR, No Edema Abdominal: NL Sounds; No Tenderness; No Distention Extremities: No Clubbing, Cyanosis Skin: No Nodules or Sclerosis Neurological: - - not completely alert, but responsive. He is at baseline. Result Diagrams: 05/14/19 04:37 05/14/19 00:21 Microbiology and Other Data: Microbiology 05/13/19 16:22 Nasal Screen MRSA (PCR) - Final Nasal Mrsa Not Detected Assess/Plan/Problems-Billing Mr Bell is a 73 yo M who has a h/o bipolar disorder with severe annabelle and psychosis, type II DM, HTN, hypothyroidism, seizure disorder and antiphospholipid Ab syndrome who presented to [facility] [place] with c/o abdominal pain and was found to be having an acute DC. - Patient Problems (1) NSTEMI (non-ST elevated myocardial infarction) Current Visit: Yes Status: Acute Code(s): I21.4 - NON-ST ELEVATION (NSTEMI) MYOCARDIAL INFARCTION SNOMED Code(s): 22980041 Comment: The patient is being medically managed as at this time, he is refusing to take any medications in by mouth making catheterization with need for possible dual antiplatelets not an option. Will try to get Alfredito to take his medications today. I will call [facility] to discuss any techniques they use. Continue ASA (will give rectally when not taking po), plavix, lipitor and coreg. TASHI/ARB to be started down the line. Will also continue heparin drip x48hr. (2) Type 2 diabetes mellitus Current Visit: Yes Status: Acute Comment: Blood sugars are elevated though he is not eating anything therefore I will hold off on giving insulin and monitor for now. Will initiate insulin if his sugars remain elevated. (3) Bipolar 1 disorder Current Visit: Yes Status: Acute Code(s): F31.9 - BIPOLAR DISORDER, UNSPECIFIED SNOMED Code(s): 712208302 Comment: Pt is typically on clozapine and risperdal. He has been refusing. Will need to discuss with psych what to do with his dose of clozapine now that he has missed a couple doses. (4) HTN (hypertension) Current Visit: Yes Status: Acute Code(s): I10 - ESSENTIAL (PRIMARY) HYPERTENSION SNOMED Code(s): 02457003 Comment: BP is low normal despite the patient not taking any meds yet. Will be starting low dose coreg and will need to monitor BP closely. (5) Seizure disorder Current Visit: Yes Status: Acute Code(s): G40.909 - EPILEPSY, UNSP, NOT INTRACTABLE, WITHOUT STATUS EPILEPTICUS SNOMED Code(s): 998863183 Comment: Pt is on keppra instead of lamictal as he is not taking his oral meds. (6) Hypothyroidism Current Visit: Yes Status: Acute Code(s): E03.9 - HYPOTHYROIDISM, UNSPECIFIED SNOMED Code(s): 44970462 Comment: Continue current dose of synthroid. TSH is in good range. (7) Chronic GERD Current Visit: Yes Status: Acute Code(s): K21.9 - GASTRO-ESOPHAGEAL REFLUX DISEASE WITHOUT ESOPHAGITIS SNOMED Code(s): 667049107 Comment: Continue protonix. (8) DVT prophylaxis Current Visit: Yes Status: Acute Code(s): Z29.9 - ENCOUNTER FOR PROPHYLACTIC MEASURES, UNSPECIFIED SNOMED Code(s): 598951335 Comment: heparin drip (9) DNR (do not resuscitate) Current Visit: Yes Status: Acute
[2019-05-14] MEDS ORDERED: levETIRAcetam 500 MG IVPREMIX* 500 MG/100 ML BAG IV SCH (10:00)
--- NOTE | 2019-05-14 14:01 | CONSULT ---
Identification - Patient Identification Reason for Psychiatric Consultation: Incapacitating Symptoms -: Patient is a 73 year old, M admitted on 05/13/19. - MHU Identification Employment Status: Disabled Hx Psychiatric Hospitalization: Yes History - Objective HPI: Alfredito is seen by psychiatry on the ICU due to concerns about his clozapine therapy. The patient is currently admitted to the hospitalist service following a myocardial infarction, which occurred at [facility], where he is a long-term resident under the care of Dr. Vicky Flores. At presentation he had complaints of nausea and would not take PO, including his scheduled antipsychotic (clozapine), the last dose of which he presumably received yesterday (05/13) morning at . Subsequently, his nausea has abated, however, he continues to refuse meals, fluids or oral medications. Dr. Flores, who is also his inpatient attending, is concerned about missed clozapine doses, as the patient has a history of hospitalization for altered mental status in November of this year following a situation in which his clozapine was held for several weeks starting in October secondary to availability from the pharmacy. When the drug was restored to the patient in November he immediately resumed it at his historic dose, which rendered him over-sedated to the point of being obtunded and requiring hospitalization. On exam Alfredito is awake but minimally responsive, will not open his eyes and gives only brief, uninformative answers. He continues to decline food and meds. Exam Appearance: Well Developed/Nourished Hygiene: Normal Grooming: Fairly Well Kept Psychomotor Activities: Abnormal-Decreased Exhibits Abnormal Movement: No Attitude and Relatedness: Minimally Cooperative Eye Contact: Poor - Speech Quality: Unpressured Latencies: Long Quantity: Terse Patient's Decription of Mood: "Fine" Observed Affect: Unvariable Affect Consistent with: Euthymia Patient's Thought Process: Disorganized Thought Content: No Passive Wish, No Suicidal Planning, No Homicidal Ideation, No Paranoid Ideation Experiencing Hallucinations: No, Sensorium is Clear Type of Hallucinations: Visual: No, Auditory: No, Command: No Level of Consciousness: Lethargic Orientation: No Intact, No Orientated to Time, No Orientated to Place, No Orientated to Person Impulse Control: Poor Insight and Judgement: Impaired Impression - Impression Clinical Impression: 73 y.o. single, white male with a history of schizoaffective disorder, for which he had several decades of long-[facility], who is brought in from [facility] where he suffered an acute AR and is now refusing all meds, fluids and meals. Inpatient DSM-V Dx: F25.0 Merits Inpatient Hospitalization: No Plan - Treatment Plan Treatment Plan: Psychiatry recommends keeping his clozapine dosing at the current regimen of 100mg in the morning and 200mg in the evening. The longer he goes without taking this the lower we should render the dose, as he would be at some risk for over-sedation after prolonged abstinence. Psychiatry will continue to follow and manage his clozapine for the duration of hospitalization. Continued Medication Management: Continue Outpt Medication Medications: Current Medications Acetaminophen (Tylenol Tab*) 650 mg PO Q4H PRN PRN Reason: MILD PAIN or TEMP > 100.4 Al Hydrox/Mg Hydrox/Simethicone (Maalox Plus*) 30 ml PO Q6H PRN PRN Reason: INDIGESTION Aspirin (Aspirin Ec Tab*) 81 mg PO DAILY [facility] Last Admin: 05/14/19 08:39 Dose: Not Given Aspirin (Asa Supp*) 300 mg [place] DAILY [facility] Atorvastatin Calcium (Lipitor*) 80 mg PO BEDTIME [facility]; Protocol Last Admin: 05/13/19 21:30 Dose: Not Given Benztropine Mesylate (Cogentin Tab*) 0.5 mg PO BID [facility] Last Admin: 05/14/19 08:39 Dose: Not Given Bisacodyl (Dulcolax Supp*) 10 mg [place] DAILY PRN PRN Reason: CONSTIPATION Carvedilol (Coreg Tab*) 3.125 mg PO BID [facility] Cholecalciferol (Vitamin D Tab*) 1,000 units PO DAILY [facility] Last Admin: 05/14/19 08:39 Dose: Not Given Clopidogrel Bisulfate (Plavix Tab*) 75 mg PO DAILY [facility] Last Admin: 05/14/19 08:39 Dose: Not Given Clozapine (Clozapine Tab*) 100 mg PO QAM [facility] Last Admin: 05/14/19 08:39 Dose: Not Given Clozapine (Clozapine Tab*) 200 mg PO BEDTIME [facility] Last Admin: 05/13/19 20:26 Dose: Not Given Dextrose (Dextrose 50% Vial 50 Ml*) 25 ml IV PUSH .FOR FS < 60 - SS PRN PRN Reason: FS < 60 Docusate Sodium (Colace Cap*) 100 mg PO BID [facility] Last Admin: 05/14/19 08:39 Dose: Not Given Ferrous Sulfate (Ferrous Sulfate Tab*) 325 mg PO DAILY [facility] Last Admin: 05/14/19 08:40 Dose: Not Given Furosemide (Lasix Tab*) 20 mg PO DAILY [facility] Last Admin: 05/14/19 08:40 Dose: Not Given Heparin Sodium (Porcine) (Heparin Vial(*)) 0 units IV .PER PROTOCOL [facility] Last Admin: 05/13/19 13:18 Dose: 4,000 units Heparin Sodium/Dextrose (Heparin Drip 25,000 Units(*)) 25,000 units in 500 mls @ 0 mls/hr IV PER RATE [facility]; Protocol Last Admin: 05/13/19 13:23 Dose: 19 mls/hr Levetiracetam (Keppra Iv Premix*) 500 mg in 100 mls @ 400 mls/hr IV 0600,1800 [facility] Insulin Glargine (Lantus(*)) 20 units SUBCUT Q12HR [facility] Last Admin: 05/14/19 08:40 Dose: Not Given Insulin Human Lispro (Humalog*) 0 units SUBCUT AC [facility]; Protocol Last Admin: 05/14/19 11:27 Dose: 6 units Lactulose (Lactulose*) 30 ml PO DAILY PRN PRN Reason: CONSTIPATION Lamotrigine (Lamictal Tab(*)) 25 mg PO TID [facility] Levothyroxine Sodium (Synthroid Inj*) 50 mcg IV 0600 [facility] Last Admin: 05/14/19 05:40 Dose: 50 mcg Morphine Sulfate (Morphine Inj (Syringe))*) 2 mg IV Q2H PRN PRN Reason: PAIN - SEVERE Last Admin: 05/13/19 19:32 Dose: 2 mg Ondansetron HCl (Zofran Inj*) 4 mg IV Q4H PRN PRN Reason: NAUSEA/VOMITING Pantoprazole Sodium (Protonix Tab*) 40 mg PO DAILY [facility] Last Admin: 05/14/19 08:40 Dose: Not Given Polyethylene Glycol/Electrolytes (Miralax*) 17 gm PO DAILY PRN PRN Reason: CONSTIPATION Risperidone (Risperdal*) 1 mg PO BID [facility] Last Admin: 05/14/19 08:40 Dose: Not Given Senna (Senokot 8.6 Mg Tab*) 2 tab PO BID [facility] Last Admin: 05/14/19 08:40 Dose: Not Given
[2019-05-14] MEDS: lamoTRIgine TAB(*) 25 MG PO SCH ×2 (14:57→21:15)
--- NOTE | 2019-05-14 15:49 | CONSULT ---
Palliative / Hospice Consult Ordering Provider: Monica Flores - PCP-Mark Referal Reason: Goals of care/dulcolax,senna, colace & PEG/MS - Subjective Code Status: DNR Advance Directives Location: In Chart MOLST Part A Completed: Yes - on chart MOLST Part E Completed:: Yes - on chart - History or Present Illness History or Present Illness: 73yo male resident of [facility] with schizoaffective disorder presents to ER with abdominal pain and vomiting. PMH is significant for DM type 2, HTN, hypothyroid, seizure disorder, GI bleed 11/2018, urinary retention, antiphospholipid antibody syndrome, GERD, idiopathic muscular weakness and legally blind. PSHx not , [facility] resides at [facility] not answering questions and no documentation in the medical record. Studies EKG-NSR abn ST-T waves lateral leads, Abd/pel CT-neg, ECHO EF 30-35% which is a change from previous study 50-55%, CXR pulmonary edema but with low lung volumes, EKG NSR, H/H 14.1/42, BUN/Cr 16/1.02, egfr 71.2 , Ca 8.4, troponin 36.63, alb 3.9, BNP 497 and INR 68.3 on heparin. Pt admitted to ICU with inferior wall NE. Admitted 11/11-11/13 AMS and 11/17-11/19 GI bleed. All history is from family and medical record pt unable to contribute not talking. Lab Values: Abnormal Lab Results 05/13/19 05/13/19 05/13/19 09:28 15:40 18:01 WBC RBC Hgb Hct MCV MCH MCHC RDW Plt Count MPV Neut % (Auto) Lymph % (Auto) Rhea % (Auto) Eos % (Auto) Baso % (Auto) Absolute Neuts (auto) Absolute Lymphs (auto) Absolute Monos (auto) Absolute Eos (auto) Absolute Basos (auto) Absolute Nucleated RBC Nucleated RBC % APTT >240.0 H* Sodium Potassium Chloride Carbon Dioxide Anion Gap BUN Creatinine Est GFR ( Amer) Est GFR (Non-Af Amer) BUN/Creatinine Ratio Glucose POC Glucose (mg/dL) 268 H Lactic Acid Calcium Total Creatine Kinase Troponin I TSH 1.71 Free T4 0.90 Urine Color Urine Appearance Urine pH Ur Specific [place] Urine Protein Urine Ketones Urine Blood Urine Nitrate Urine Bilirubin Urine Urobilinogen Ur Leukocyte Esterase Urine WBC (Auto) Urine RBC (Auto) Urine Bacteria Urine Glucose 05/13/19 05/13/19 05/13/19 18:52 18:52 21:20 WBC RBC Hgb Hct MCV MCH MCHC RDW Plt Count MPV Neut % (Auto) Lymph % (Auto) Rhea % (Auto) Eos % (Auto) Baso % (Auto) Absolute Neuts (auto) Absolute Lymphs (auto) Absolute Monos (auto) Absolute Eos (auto) Absolute Basos (auto) Absolute Nucleated RBC Nucleated RBC % APTT Sodium Potassium Chloride Carbon Dioxide Anion Gap BUN Creatinine Est GFR ( Amer) Est GFR (Non-Af Amer) BUN/Creatinine Ratio Glucose POC Glucose (mg/dL) Lactic Acid 2.1 H* Calcium Total Creatine Kinase 1701 H Troponin I 31.18 H* 35.31 H* TSH Free T4 Urine Color Urine Appearance Urine pH Ur Specific [place] Urine Protein Urine Ketones Urine Blood Urine Nitrate Urine Bilirubin Urine Urobilinogen Ur Leukocyte Esterase Urine WBC (Auto) Urine RBC (Auto) Urine Bacteria Urine Glucose 05/13/19 05/13/19 05/14/19 21:23 23:25 00:21 WBC RBC Hgb Hct MCV MCH MCHC RDW Plt Count MPV Neut % (Auto) Lymph % (Auto) Rhea % (Auto) Eos % (Auto) Baso % (Auto) Absolute Neuts (auto) Absolute Lymphs (auto) Absolute Monos (auto) Absolute Eos (auto) Absolute Basos (auto) Absolute Nucleated RBC Nucleated RBC % APTT 78.7 H Sodium 140 Potassium 4.0 Chloride 107 Carbon Dioxide 27 Anion Gap 6 BUN 16 Creatinine 1.02 Est GFR ( Amer) 86.2 Est GFR (Non-Af Amer) 71.2 BUN/Creatinine Ratio 15.7 Glucose 259 H POC Glucose (mg/dL) 268 H Lactic Acid Calcium 8.4 L Total Creatine Kinase Troponin I 38.50 H* TSH Free T4 Urine Color Urine Appearance Urine pH Ur Specific [place] Urine Protein Urine Ketones Urine Blood Urine Nitrate Urine Bilirubin Urine Urobilinogen Ur Leukocyte Esterase Urine WBC (Auto) Urine RBC (Auto) Urine Bacteria Urine Glucose 05/14/19 05/14/19 05/14/19 01:34 04:37 04:37 WBC 11.9 H RBC 4.77 Hgb 14.1 Hct 42 MCV 87 MCH 30 MCHC 34 RDW 14 Plt Count 225 MPV 7.6 Neut % (Auto) 84.9 Lymph % (Auto) 5.3 Rhea % (Auto) 9.3 Eos % (Auto) 0.0 Baso % (Auto) 0.5 Absolute Neuts (auto) 10.1 H Absolute Lymphs (auto) 0.6 L Absolute Monos (auto) 1.1 H Absolute Eos (auto) 0.0 Absolute Basos (auto) 0.1 Absolute Nucleated RBC 0.0 Nucleated RBC % 0.1 APTT Sodium Potassium Chloride Carbon Dioxide Anion Gap BUN Creatinine Est GFR ( Amer) Est GFR (Non-Af Amer) BUN/Creatinine Ratio Glucose POC Glucose (mg/dL) Lactic Acid Calcium Total Creatine Kinase Troponin I 36.63 H* TSH Free T4 Urine Color Yellow Urine Appearance Clear Urine pH 6.0 Ur Specific [place] > 1.060 H Urine Protein Negative Urine Ketones Trace A Urine Blood Negative Urine Nitrate Negative Urine Bilirubin Negative Urine Urobilinogen Negative Ur Leukocyte Esterase Negative Urine WBC (Auto) Absent Urine RBC (Auto) Absent Urine Bacteria Absent Urine Glucose 1+(50 mg/dl) A 05/14/19 05/14/19 05/14/19 04:37 08:09 11:23 WBC RBC Hgb Hct MCV MCH MCHC RDW Plt Count MPV Neut % (Auto) Lymph % (Auto) Rhea % (Auto) Eos % (Auto) Baso % (Auto) Absolute Neuts (auto) Absolute Lymphs (auto) Absolute Monos (auto) Absolute Eos (auto) Absolute Basos (auto) Absolute Nucleated RBC Nucleated RBC % APTT 94.0 H Sodium Potassium Chloride Carbon Dioxide Anion Gap BUN Creatinine Est GFR ( Amer) Est GFR (Non-Af Amer) BUN/Creatinine Ratio Glucose POC Glucose (mg/dL) 186 H 223 H Lactic Acid Calcium Total Creatine Kinase Troponin I TSH Free T4 Urine Color Urine Appearance Urine pH Ur Specific [place] Urine Protein Urine Ketones Urine Blood Urine Nitrate Urine Bilirubin Urine Urobilinogen Ur Leukocyte Esterase Urine WBC (Auto) Urine RBC (Auto) Urine Bacteria Urine Glucose 05/14/19 05/14/19 12:17 14:05 WBC RBC Hgb Hct MCV MCH MCHC RDW Plt Count MPV Neut % (Auto) Lymph % (Auto) Rhea % (Auto) Eos % (Auto) Baso % (Auto) Absolute Neuts (auto) Absolute Lymphs (auto) Absolute Monos (auto) Absolute Eos (auto) Absolute Basos (auto) Absolute Nucleated RBC Nucleated RBC % APTT 68.3 H Sodium Potassium Chloride Carbon Dioxide Anion Gap BUN Creatinine Est GFR ( Amer) Est GFR (Non-Af Amer) BUN/Creatinine Ratio Glucose POC Glucose (mg/dL) 280 H Lactic Acid Calcium Total Creatine Kinase Troponin I TSH Free T4 Urine Color Urine Appearance Urine pH Ur Specific [place] Urine Protein Urine Ketones Urine Blood Urine Nitrate Urine Bilirubin Urine Urobilinogen Ur Leukocyte Esterase Urine WBC (Auto) Urine RBC (Auto) Urine Bacteria Urine Glucose Laboratory Last Values WBC 11.9 10^3/uL (3.5-10.8) H 05/14/19 04:37 RBC 4.77 10^6 /uL (4.18-5.48) 05/14/19 04:37 Hgb 14.1 g/dL (14.0-18.0) 05/14/19 04:37 Hct 42 % (42-52) 05/14/19 04:37 MCV 87 fL (80-94) 05/14/19 04:37 MCH 30 pg (27-31) 05/14/19 04:37 MCHC 34 g/dL (31-36) 05/14/19 04:37 RDW 14 % (10-15) 05/14/19 04:37 Plt Count 225 10^3/uL (150-450) 05/14/19 04:37 MPV 7.6 fL (7.4-10.4) 05/14/19 04:37 Neut % (Auto) 84.9 % 05/14/19 04:37 Lymph % (Auto) 5.3 % 05/14/19 04:37 Rhea % (Auto) 9.3 % 05/14/19 04:37 Eos % (Auto) 0.0 % 05/14/19 04:37 Baso % (Auto) 0.5 % 05/14/19 04:37 Absolute Neuts (auto) 10.1 10^3/ul (1.5-7.7) H 05/14/19 04:37 Absolute Lymphs (auto) 0.6 10^3/ul (1.0-4.8) L 05/14/19 04:37 Absolute Monos (auto) 1.1 10^3/ul (0-0.8) H 05/14/19 04:37 Absolute Eos (auto) 0.0 10^3/ul (0-0.6) 05/14/19 04:37 Absolute Basos (auto) 0.1 10^3/ul (0-0.2) 05/14/19 04:37 Absolute Nucleated RBC 0.0 10^3/ul 05/14/19 04:37 Nucleated RBC % 0.1 05/14/19 04:37 APTT 68.3 seconds (26.0-38.0) H 05/14/19 12:17 Sodium 140 mmol/L (135-145) 05/14/19 00:21 Potassium 4.0 mmol/L (3.5-5.0) 05/14/19 00:21 Chloride 107 mmol/L (101-111) 05/14/19 00:21 Carbon Dioxide 27 mmol/L (22-32) 05/14/19 00:21 Anion Gap 6 mmol/L (2-11) 05/14/19 00:21 BUN 16 mg/dL (6-24) 05/14/19 00:21 Creatinine 1.02 mg/dL (0.67-1.17) 05/14/19 00:21 Est GFR ( Amer) 86.2 (>60) 05/14/19 00:21 Est GFR (Non-Af Amer) 71.2 (>60) 05/14/19 00:21 BUN/Creatinine Ratio 15.7 (8-20) 05/14/19 00:21 Glucose 259 mg/dL (70-100) H 05/14/19 00:21 POC Glucose (mg/dL) 280 mg/dL (70-100) H 05/14/19 14:05 Lactic Acid 2.1 mmol/L (0.5-2.0) H* 05/13/19 18:52 Calcium 8.4 mg/dL (8.6-10.3) L 05/14/19 00:21 Magnesium 1.9 mg/dL (1.9-2.7) 05/13/19 09:29 Total Bilirubin 0.80 mg/dL (0.2-1.0) 05/13/19 09:29 AST 114 U/L (13-39) H 05/13/19 09:29 ALT 28 U/L (7-52) 05/13/19 09:29 Alkaline Phosphatase 122 U/L (34-104) H 05/13/19 09:29 Total Creatine Kinase 1701 U/L (10-223) H 05/13/19 18:52 CK-MB (CK-2) 212.0 ng/mL (0.6-6.3) H 05/13/19 09:29 Troponin I 36.63 ng/mL (<0.03) H* 05/14/19 04:37 C-Reactive Protein 12.86 mg/L (<8.01) H 05/13/19 09:29 B-Natriuretic Peptide 497 pg/mL (<=100) H 05/13/19 09:29 Total Protein 7.3 g/dL (6.4-8.9) 05/13/19 09:29 Albumin 3.9 g/dL (3.2-5.2) 05/13/19 09:29 Globulin 3.4 g/dL (2-4) 05/13/19 09:29 Albumin/Globulin Ratio 1.1 (1-3) 05/13/19 09:29 Lipase < 10 U/L (11.0-82.0) L 05/13/19 09:29 TSH 1.71 mcIU/mL (0.34-5.60) 05/13/19 09:28 Free T4 0.90 ng/dL (0.61-1.12) 05/13/19 09:28 Urine Color Yellow 05/14/19 01:34 Urine Appearance Clear 05/14/19 01:34 Urine pH 6.0 (5-9) 05/14/19 01:34 Ur Specific [place] > 1.060 (1.010-1.030) H 05/14/19 01:34 Urine Protein Negative (Negative) 05/14/19 01:34 Urine Ketones Trace (Negative) A 05/14/19 01:34 Urine Blood Negative (Negative) 05/14/19 01:34 Urine Nitrate Negative (Negative) 05/14/19 01:34 Urine Bilirubin Negative (Negative) 05/14/19 01:34 Urine Urobilinogen Negative (Negative) 05/14/19 01:34 Ur Leukocyte Esterase Negative (Negative) 05/14/19 01:34 Urine WBC (Auto) Absent (Absent) 05/14/19 01:34 Urine RBC (Auto) Absent (Absent) 05/14/19 01:34 Urine Bacteria Absent (Absent) 05/14/19 01:34 Urine Glucose 1+(50 mg/dl) (Negative) A 05/14/19 01:34 - Objective Active Medications: Acetaminophen (Tylenol Tab*) 650 mg PO Q4H PRN PRN Reason: MILD PAIN or TEMP > 100.4 Al Hydrox/Mg Hydrox/Simethicone (Maalox Plus*) 30 ml PO Q6H PRN PRN Reason: INDIGESTION Aspirin (Aspirin Ec Tab*) 81 mg PO DAILY [facility] Last Admin: 05/14/19 08:39 Dose: Not Given Aspirin (Asa Supp*) 300 mg [place] DAILY [facility] Atorvastatin Calcium (Lipitor*) 80 mg PO BEDTIME [facility]; Protocol Last Admin: 05/13/19 21:30 Dose: Not Given Benztropine Mesylate (Cogentin Tab*) 0.5 mg PO BID [facility] Last Admin: 05/14/19 08:39 Dose: Not Given Bisacodyl (Dulcolax Supp*) 10 mg CA DAILY PRN PRN Reason: CONSTIPATION Carvedilol (Coreg Tab*) 3.125 mg PO BID [facility] Cholecalciferol (Vitamin D Tab*) 1,000 units PO DAILY [facility] Last Admin: 05/14/19 08:39 Dose: Not Given Clopidogrel Bisulfate (Plavix Tab*) 75 mg PO DAILY [facility] Last Admin: 05/14/19 08:39 Dose: Not Given Clozapine (Clozapine Tab*) 100 mg PO QAM [facility] Last Admin: 05/14/19 08:39 Dose: Not Given Clozapine (Clozapine Tab*) 200 mg PO BEDTIME [facility] Last Admin: 05/13/19 20:26 Dose: Not Given Dextrose (Dextrose 50% Vial 50 Ml*) 25 ml IV PUSH .FOR FS < 60 - SS PRN PRN Reason: FS < 60 Docusate Sodium (Colace Cap*) 100 mg PO BID [facility] Last Admin: 05/14/19 08:39 Dose: Not Given Ferrous Sulfate (Ferrous Sulfate Tab*) 325 mg PO DAILY [facility] Last Admin: 05/14/19 08:40 Dose: Not Given Furosemide (Lasix Tab*) 20 mg PO DAILY [facility] Last Admin: 05/14/19 08:40 Dose: Not Given Heparin Sodium (Porcine) (Heparin Vial(*)) 0 units IV .PER PROTOCOL [facility] Last Admin: 05/13/19 13:18 Dose: 4,000 units Heparin Sodium/Dextrose (Heparin Drip 25,000 Units(*)) 25,000 units in 500 mls @ 0 mls/hr IV PER RATE [facility]; Protocol Last Admin: 05/13/19 13:23 Dose: 19 mls/hr Levetiracetam (Keppra Iv Premix*) 500 mg in 100 mls @ 400 mls/hr IV 0600,1800 [facility] Insulin Glargine (Lantus(*)) 20 units SUBCUT Q12HR [facility] Last Admin: 05/14/19 08:40 Dose: Not Given Insulin Human Lispro (Humalog*) 0 units SUBCUT AC [facility]; Protocol Last Admin: 05/14/19 11:27 Dose: 6 units Lactulose (Lactulose*) 30 ml PO DAILY PRN PRN Reason: CONSTIPATION Lamotrigine (Lamictal Tab(*)) 25 mg PO TID [facility] Last Admin: 05/14/19 14:57 Dose: Not Given Levothyroxine Sodium (Synthroid Inj*) 50 mcg IV 0600 [facility] Last Admin: 05/14/19 05:40 Dose: 50 mcg Morphine Sulfate (Morphine Inj (Syringe))*) 2 mg IV Q2H PRN PRN Reason: PAIN - SEVERE Last Admin: 05/13/19 19:32 Dose: 2 mg Ondansetron HCl (Zofran Inj*) 4 mg IV Q4H PRN PRN Reason: NAUSEA/VOMITING Pantoprazole Sodium (Protonix Tab*) 40 mg PO DAILY [facility] Last Admin: 05/14/19 08:40 Dose: Not Given Polyethylene Glycol/Electrolytes (Miralax*) 17 gm PO DAILY PRN PRN Reason: CONSTIPATION Risperidone (Risperdal*) 1 mg PO BID [facility] Last Admin: 05/14/19 08:40 Dose: Not Given Senna (Senokot 8.6 Mg Tab*) 2 tab PO BID [facility] Last Admin: 05/14/19 08:40 Dose: Not Given Vital Signs: Vital Signs: Temp Pulse Resp BP Pulse Ox 99.9 F 79 26 113/70 95 05/14/19 15:00 05/14/19 15:00 05/14/19 15:00 05/14/19 15:00 05/14/19 15:00 Patient Weight: Weight 89.5 kg Intake and Output: Intake & Output 05/12/19 05/13/19 05/14/19 05/15/19 06:59 06:59 06:59 06:59 Intake Total 1194.2 173.1 Output Total 195 215 Balance 999.2 -41.9 Weight 89.5 kg Intake: IV Fluids 1000 173.1 Keppra 108 NS (0.9%) 65.1 Medicated IV 91 Heparin 91 Heparin 103.2 Output: [place] 195 215 ADLs: Meal Record Start: 05/13/19 14: 10 Freq: DAILY@0900,1400,1800 Status: Complete Protocol: Created 05/13/19 14:10 System (Rec: 05/13/19 14:10 System [id number]) Document 05/13/19 18:00 [id number] (Rec: 05/13/19 18:15 [id number]) ADLs: Meal Record Start: 05/13/19 21: 01 Freq: 09,13,18 Status: Active Protocol: Created 05/13/19 21:01 [id number] (Rec: 05/13/19 21:01 [id number] ICU-C06) Document 05/14/19 09:00 [id number] (Rec: 05/14/19 09:06 [id number] ICU-C07) Document 05/14/19 13:00 [id number] (Rec: 05/14/19 13:31 [id number] ICU-C07) Intake and Output Start: 05/13/19 09: 11 Freq: Status: Complete Protocol: Created 05/13/19 09:11 System (Rec: 05/13/19 09:11 System [id number]) Intake and Output Start: 05/13/19 14: 10 Freq: DAILY@0600,1400,2200 Status: Complete Protocol: Created 05/13/19 14:10 System (Rec: 05/13/19 14:10 System [email or web address]) Intake and Output Start: 05/13/19 21: 01 Freq: Q1HR Status: Active Protocol: Created 05/13/19 21:01 [id number] (Rec: 05/13/19 21:01 [id number] ICU-C06) Document 05/14/19 05:09 [id number] (Rec: 05/14/19 05:09 [id number] ICU-C07) Document 05/14/19 08:11 [id number] (Rec: 05/14/19 08:12 [id number] ICU-M23) Document 05/14/19 09:09 [id number] (Rec: 05/14/19 09:09 [id number] ICU-C07) Document 05/14/19 10:00 [id number] (Rec: 05/14/19 10:08 [id number] ICU-C07) Document 05/14/19 11:00 [id number] (Rec: 05/14/19 11:14 [id number] ICU-C07) Document 05/14/19 12:00 [id number] (Rec: 05/14/19 12:22 [id number] ICU-C07) Document 05/14/19 13:57 [id number] (Rec: 05/14/19 13:57 [id number] ICU-C07) Document 05/14/19 15:00 [id number] (Rec: 05/14/19 15:09 [id number] ICU-C07) Eyes: No Scleral Icterus Ears/Nose/Mouth/Throat: Mucous Membranes Moist Cardiovascular: NL Sounds; No Murmurs; No JVD, RRR, No Edema Abdominal: NL Sounds; No Tenderness; No Distention Extremities: No Clubbing, Cyanosis Neurological: - - not completely alert, but responsive. He is at baseline. - Assessment Assessment: 73yo male with IWMI refusing meds - Plan Consult Plan (MU): Palliative Plan: Pt not waking up to participate in conversation. Did speak with Bozena HCP() and updated her. As of now pt is not hospice eligible so the plan is to discharge back to [facility] once medically stable. Pt may be more compliant with meds once he is at [facility]. The meds he is refusing are not limiting his recovery but will impact heart issues down the road like heart failure. HCP understands that he is not hospice eligible and that she can refer if his health declines once at [facility]. Pt has limited po intake will continue to monitor. KPS 50%, PPS 50% - Time On Unit Date of Evaluation: 05/14/19 Hospice Consult Time in: 12:00 Hospice Consult Time Out: 13:00 Hospice Consult Time Total: 60 > 50% of Time Spend In Counseling or Coordinating Care: Yes
[2019-05-14] MEDS: NS 0.9% 1000 ML** 1,000 ML IV SCH (16:29)
[2019-05-14] MEDS: Atorvastatin* 80 MG TAB PO SCH (21:14)
[2019-05-14] MEDS: Carvedilol TAB* 3.125 MG PO SCH (21:14)
[2019-05-15 05:45] LABS: ABS Lymphocytes 0.7 10^3/ul (1.0-4.8); ABS Monocytes 0.8 10^3/ul (0-0.8); ABS Neutrophils 9.4 10^3/ul (1.5-7.7); Hematocrit 39 % (42-52); Hemoglobin 13.1 g/dL (14.0-18.0); Lymphocyte % 6.5 %; Mean Corpuscular HGB Conc 34 g/dL (31-36); Mean Corpuscular Hemoglobin 29 pg (27-31); Mean Corpuscular Volume 87 fL (80-94); Mean Platelet Volume 7.5 fL (7.4-10.4); Platelet Count 200 10^3/uL (150-450); Red Blood Count 4.46 10^6 /uL (4.18-5.48); Red Cell Distribution Width 14 % (10-15); White Blood Count 10.9 10^3/uL (3.5-10.8)
[2019-05-15] MEDS: Heparin DRIP 25,000 UNITS(*) 25,000 UNITS/500 ML BAG IV SCH (05:59)
[2019-05-15] MEDS: NS 0.9% 1000 ML** 1,000 ML IV SCH (05:59)
[2019-05-15] MEDS: Insulin LISPRO* 1 UNITS UNIT SUBCUT SCH ×3 (08:47→18:05)
[2019-05-15] MEDS: Insulin GLARGINE(*) 1 UNITS UNIT SUBCUT SCH ×2 (08:47→23:34)
[2019-05-15] MEDS: Benztropine TAB* 1 MG PO SCH ×2 (09:03→22:31)
[2019-05-15] MEDS: levETIRAcetam 500 MG IVPREMIX* 500 MG/100 ML BAG IV SCH ×2 (09:06→18:07)
[2019-05-15] MEDS: Levothyroxine INJ* 100 MCG/5 ML VIAL IV SCH (09:07)
[2019-05-15] MEDS: risperiDONE TAB* 1 MG PO SCH ×2 (09:09→22:31)
[2019-05-15] MEDS: Clopidogrel TAB* 75 MG PO SCH (09:13)
[2019-05-15] MEDS: Docusate CAP* 100 MG PO SCH ×3 (10:19→22:31)
[2019-05-15] MEDS: Aspirin EC TAB* 81 MG TAB.EC PO SCH ×2 (10:19→10:55)
[2019-05-15] MEDS: Carvedilol TAB* 3.125 MG PO SCH ×3 (10:19→22:23)
[2019-05-15] MEDS: CloZAPine TAB* 100 MG TAB PO SCH ×3 (10:19→22:23)
[2019-05-15] MEDS: Ferrous Sulfate TAB* 325 MG PO SCH ×2 (10:19→10:55)
[2019-05-15] MEDS: Cholecalciferol TAB* 1000 UNITS PO SCH ×2 (10:19→10:56)
[2019-05-15] MEDS: Senna TAB 8.6 mg* TAB PO SCH ×3 (10:20→22:32)
[2019-05-15] MEDS: lamoTRIgine TAB(*) 25 MG PO SCH ×4 (10:20→22:31)
[2019-05-15] MEDS: Pantoprazole TAB * 40 MG TAB PO SCH ×2 (10:20→10:56)
--- NOTE | 2019-05-15 10:35 | PN ---
Subjective Date of Service: 05/15/19 Interval History: Pt is more talkative today. He asks for shana dwight and states he is willing to take his medications. He denies any CP or SOB. Objective Active Medications: Acetaminophen (Tylenol Tab*) 650 mg PO Q4H PRN PRN Reason: MILD PAIN or TEMP > 100.4 Al Hydrox/Mg Hydrox/Simethicone (Maalox Plus*) 30 ml PO Q6H PRN PRN Reason: INDIGESTION Aspirin (Aspirin Ec Tab*) 81 mg PO DAILY [facility] Last Admin: 05/15/19 10:19 Dose: Not Given Aspirin (Asa Supp*) 300 mg OK DAILY [facility] Atorvastatin Calcium (Lipitor*) 80 mg PO BEDTIME [facility]; Protocol Last Admin: 05/14/19 21:14 Dose: Not Given Benztropine Mesylate (Cogentin Tab*) 0.5 mg PO BID [facility] Last Admin: 05/15/19 09:03 Dose: 0.5 mg Bisacodyl (Dulcolax Supp*) 10 mg OK DAILY PRN PRN Reason: CONSTIPATION Carvedilol (Coreg Tab*) 3.125 mg PO BID [facility] Last Admin: 05/15/19 10:19 Dose: Not Given Cholecalciferol (Vitamin D Tab*) 1,000 units PO DAILY [facility] Last Admin: 05/15/19 10:19 Dose: Not Given Clopidogrel Bisulfate (Plavix Tab*) 75 mg PO DAILY [facility] Last Admin: 05/15/19 09:13 Dose: 75 mg Clozapine (Clozapine Tab*) 100 mg PO QAM [facility] Last Admin: 05/15/19 10:19 Dose: Not Given Clozapine (Clozapine Tab*) 200 mg PO BEDTIME [facility] Last Admin: 05/14/19 21:14 Dose: Not Given Dextrose (Dextrose 50% Vial 50 Ml*) 25 ml IV PUSH .FOR FS < 60 - SS PRN PRN Reason: FS < 60 Docusate Sodium (Colace Cap*) 100 mg PO BID [facility] Last Admin: 05/15/19 10:19 Dose: Not Given Ferrous Sulfate (Ferrous Sulfate Tab*) 325 mg PO DAILY [facility] Last Admin: 05/15/19 10:19 Dose: Not Given Heparin Sodium (Porcine) (Heparin Vial(*)) 0 units IV .PER PROTOCOL [facility] Last Admin: 05/13/19 13:18 Dose: 4,000 units Heparin Sodium/Dextrose (Heparin Drip 25,000 Units(*)) 25,000 units in 500 mls @ 0 mls/hr IV PER RATE [facility]; Protocol Last Admin: 05/15/19 05:59 Dose: 11 mls/hr Levetiracetam (Keppra Iv Premix*) 500 mg in 100 mls @ 400 mls/hr IV 0600,1800 [facility] Last Admin: 05/15/19 09:06 Dose: 400 mls/hr Sodium Chloride (Ns 0.9% 1000 Ml) 1,000 mls @ 75 mls/hr IV PER RATE [facility] Last Admin: 05/15/19 05:59 Dose: 75 mls/hr Insulin Glargine (Lantus(*)) 20 units SUBCUT Q12HR [facility] Last Admin: 05/15/19 08:47 Dose: 20 units Insulin Human Lispro (Humalog*) 0 units SUBCUT AC [facility]; Protocol Last Admin: 05/15/19 08:47 Dose: 6 units Lactulose (Lactulose*) 30 ml PO DAILY PRN PRN Reason: CONSTIPATION Lamotrigine (Lamictal Tab(*)) 25 mg PO TID [facility] Last Admin: 05/15/19 10:20 Dose: Not Given Levothyroxine Sodium (Synthroid Inj*) 50 mcg IV 0600 [facility] Last Admin: 05/15/19 09:07 Dose: 100 mcg Morphine Sulfate (Morphine Inj (Syringe))*) 2 mg IV Q2H PRN PRN Reason: PAIN - SEVERE Last Admin: 05/13/19 19:32 Dose: 2 mg Ondansetron HCl (Zofran Inj*) 4 mg IV Q4H PRN PRN Reason: NAUSEA/VOMITING Pantoprazole Sodium (Protonix Tab*) 40 mg PO DAILY [facility] Last Admin: 05/15/19 10:20 Dose: Not Given Polyethylene Glycol/Electrolytes (Miralax*) 17 gm PO DAILY PRN PRN Reason: CONSTIPATION Risperidone (Risperdal*) 1 mg PO BID [facility] Last Admin: 05/15/19 09:09 Dose: 1 mg Senna (Senokot 8.6 Mg Tab*) 2 tab PO BID [facility] Last Admin: 05/15/19 10:20 Dose: Not Given Vital Signs - 8 hr 05/15/19 05/15/19 05/15/19 03:00 04:00 05:00 Temperature 98.4 F Pulse Rate 82 Respiratory 16 16 18 Rate Blood Pressure 120/68 (mmHg) O2 Sat by Pulse 99 Oximetry 05/15/19 05/15/19 06:00 09:14 Temperature Pulse Rate Respiratory 16 20 Rate Blood Pressure 94/55 (mmHg) O2 Sat by Pulse 98 Oximetry Oxygen Devices in Use Now: Nasal Cannula Appearance: Elderly male sitting up in bed, NAD Eyes: No Scleral Icterus Ears/Nose/Mouth/Throat: Mucous Membranes Moist Respiratory: Symmetrical Chest Expansion and Respiratory Effort, Clear to Auscultation - anteriorly Cardiovascular: NL Sounds; No Murmurs; No JVD, RRR, No Edema Abdominal: NL Sounds; No Tenderness; No Distention Extremities: No Clubbing, Cyanosis Skin: No Nodules or Sclerosis Neurological: - - drowsy but arousable, at baseline Result Diagrams: 05/15/19 05:08 05/14/19 00:21 Microbiology and Other Data: Microbiology 05/13/19 16:22 Nasal Screen MRSA (PCR) - Final Nasal Mrsa Not Detected Assess/Plan/Problems-Billing Mr Bell is a 73 yo M who has a h/o bipolar disorder with severe annabelle and psychosis, type II DM, HTN, hypothyroidism, seizure disorder and antiphospholipid Ab syndrome who presented to [facility] with c/o abdominal pain and was found to be having an acute IL. - Patient Problems (1) NSTEMI (non-ST elevated myocardial infarction) Current Visit: Yes Status: Acute Code(s): I21.4 - NON-ST ELEVATION (NSTEMI) MYOCARDIAL INFARCTION SNOMED Code(s): 40903131 Comment: Continue medical management. Today he seems willing to take his medications. Nursing will try. Continue rectal ASA until he is taking medications by mouth. Hold lasix for now as he is not really eating/drinking and is at risk of becoming volume deplete if he takes the lasix but doesnt eat/ drink. (2) Type 2 diabetes mellitus Current Visit: Yes Status: Acute Comment: Sugars remain elevated after getting last night's dose of lantus. Increase lantus to 30 units SQ BID. Check A1c as it has not been looked at since 09/2018. (3) Bipolar 1 disorder Current Visit: Yes Status: Acute Code(s): F31.9 - BIPOLAR DISORDER, UNSPECIFIED SNOMED Code(s): 304006846 Comment: Pt is typically on clozapine and risperdal. He has been refusing. Appreciate psych input. Will see if pt takes his home meds today with shana dwight as he requested. (4) HTN (hypertension) Current Visit: Yes Status: Acute Code(s): I10 - ESSENTIAL (PRIMARY) HYPERTENSION SNOMED Code(s): 40287757 Comment: BP soft this AM. Will be rechecking BP and then try to administer coreg 3.125mg BID. (5) Seizure disorder Current Visit: Yes Status: Acute Code(s): G40.909 - EPILEPSY, UNSP, NOT INTRACTABLE, WITHOUT STATUS EPILEPTICUS SNOMED Code(s): 607268683 Comment: Pt is on keppra instead of lamictal as he is not taking his oral meds. Once regularly taking oral meds, resume home lamictal. (6) Hypothyroidism Current Visit: Yes Status: Acute Code(s): E03.9 - HYPOTHYROIDISM, UNSPECIFIED SNOMED Code(s): 06309236 Comment: Continue current dose of synthroid. TSH is in good range. (7) Chronic GERD Current Visit: Yes Status: Acute Code(s): K21.9 - GASTRO-ESOPHAGEAL REFLUX DISEASE WITHOUT ESOPHAGITIS SNOMED Code(s): 691576556 Comment: Continue protonix. (8) DVT prophylaxis Current Visit: Yes Status: Acute Code(s): Z29.9 - ENCOUNTER FOR PROPHYLACTIC MEASURES, UNSPECIFIED SNOMED Code(s): 306495013 Comment: heparin drip (9) DNR (do not resuscitate) Current Visit: Yes Status: Acute
[2019-05-15] MEDS: Furosemide TAB* 20 MG PO SCH (10:37)
--- NOTE | 2019-05-15 11:21 | PN ---
Subjective Date of Service: 05/15/19 Interval History: f/u medically managed acute MD - No chest or abdomen pain - Feels well, taking medications and drinking today today but intermittent non- adherence previously with oral medication had complicated care - no murmur - no arrhythmias or high grade heart block on telemetry note Medications Active Medications: Acetaminophen (Tylenol Tab*) 650 mg PO Q4H PRN PRN Reason: MILD PAIN or TEMP > 100.4 Al Hydrox/Mg Hydrox/Simethicone (Maalox Plus*) 30 ml PO Q6H PRN PRN Reason: INDIGESTION Aspirin (Aspirin Ec Tab*) 81 mg PO DAILY [facility] Last Admin: 05/15/19 10:55 Dose: 81 mg Atorvastatin Calcium (Lipitor*) 80 mg PO BEDTIME [facility]; Protocol Last Admin: 05/14/19 21:14 Dose: Not Given Benztropine Mesylate (Cogentin Tab*) 0.5 mg PO BID [facility] Last Admin: 05/15/19 09:03 Dose: 0.5 mg Bisacodyl (Dulcolax Supp*) 10 mg [place] DAILY PRN PRN Reason: CONSTIPATION Carvedilol (Coreg Tab*) 3.125 mg PO BID [facility] Last Admin: 05/15/19 10:55 Dose: 3.125 mg Cholecalciferol (Vitamin D Tab*) 1,000 units PO DAILY [facility] Last Admin: 05/15/19 10:56 Dose: 1,000 units Clopidogrel Bisulfate (Plavix Tab*) 75 mg PO DAILY [facility] Last Admin: 05/15/19 09:13 Dose: 75 mg Clozapine (Clozapine Tab*) 100 mg PO QAM [facility] Last Admin: 05/15/19 10:54 Dose: 100 mg Clozapine (Clozapine Tab*) 200 mg PO BEDTIME [facility] Last Admin: 05/14/19 21:14 Dose: Not Given Dextrose (Dextrose 50% Vial 50 Ml*) 25 ml IV PUSH .FOR FS < 60 - SS PRN PRN Reason: FS < 60 Docusate Sodium (Colace Cap*) 100 mg PO BID [facility] Last Admin: 05/15/19 10:55 Dose: 100 mg Ferrous Sulfate (Ferrous Sulfate Tab*) 325 mg PO DAILY [facility] Last Admin: 05/15/19 10:55 Dose: 325 mg Heparin Sodium (Porcine) (Heparin Vial(*)) 5,000 units SUBCUT Q8HR [facility] Levetiracetam (Keppra Iv Premix*) 500 mg in 100 mls @ 400 mls/hr IV 0600,1800 [facility] Last Admin: 05/15/19 09:06 Dose: 400 mls/hr Insulin Glargine (Lantus(*)) 30 units SUBCUT Q12HR [facility] Insulin Human Lispro (Humalog*) 0 units SUBCUT AC [facility]; Protocol Last Admin: 05/15/19 08:47 Dose: 6 units Lactulose (Lactulose*) 30 ml PO DAILY PRN PRN Reason: CONSTIPATION Lamotrigine (Lamictal Tab(*)) 25 mg PO TID [facility] Last Admin: 05/15/19 10:56 Dose: 25 mg Levothyroxine Sodium (Synthroid Inj*) 50 mcg IV 0600 [facility] Last Admin: 05/15/19 09:07 Dose: 100 mcg Losartan Potassium (Cozaar Tab*) 25 mg PO DAILY [facility] Ondansetron HCl (Zofran Inj*) 4 mg IV Q4H PRN PRN Reason: NAUSEA/VOMITING Pantoprazole Sodium (Protonix Tab*) 40 mg PO DAILY [facility] Last Admin: 05/15/19 10:56 Dose: 40 mg Polyethylene Glycol/Electrolytes (Miralax*) 17 gm PO DAILY PRN PRN Reason: CONSTIPATION Risperidone (Risperdal*) 1 mg PO BID [facility] Last Admin: 05/15/19 09:09 Dose: 1 mg Senna (Senokot 8.6 Mg Tab*) 2 tab PO BID [facility] Last Admin: 05/15/19 10:54 Dose: 2 tab Objective Vital Signs: Temp Pulse Resp BP Pulse Ox 98.4 F 82 20 108/64 98 05/15/19 04:00 05/15/19 04:00 05/15/19 09:14 05/15/19 10:58 05/15/19 09:14 Oxygen Devices in Use Now: Nasal Cannula Appearance: nad, not toxic appearing Eyes: No Scleral Icterus Ears/Nose/Mouth/Throat: Clear Oropharnyx Neck: - - uncertain jvp Respiratory: Symmetrical Chest Expansion and Respiratory Effort, Clear to Auscultation Cardiovascular: RRR, No Edema, - - no murmur Abdominal: No Hepatosplenomegaly - obese, soft, non tender to light palpation. Extremities: No Edema Skin: - Neurological: - - awake, alert, interactive, answers questins Laboratory Results: 05/15/19 05:08 05/14/19 00:21 APTT 72.2 seconds (26.0-38.0) H 05/14/19 18:17 Total Bilirubin 0.80 mg/dL (0.2-1.0) 05/13/19 09:29 AST 114 U/L (13-39) H 05/13/19 09:29 ALT 28 U/L (7-52) 05/13/19 09:29 Alkaline Phosphatase 122 U/L (34-104) H 05/13/19 09:29 CK-MB (CK-2) 212.0 ng/mL (0.6-6.3) H 05/13/19 09:29 B-Natriuretic Peptide 497 pg/mL (<=100) H 05/13/19 09:29 Total Protein 7.3 g/dL (6.4-8.9) 05/13/19 09:29 Albumin 3.9 g/dL (3.2-5.2) 05/13/19 09:29 Globulin 3.4 g/dL (2-4) 05/13/19 09:29 Albumin/Globulin Ratio 1.1 (1-3) 05/13/19 09:29 TSH 1.71 mcIU/mL (0.34-5.60) 05/13/19 09:28 05/13/19 05/13/19 05/13/19 09:29 12:00 15:12 Troponin I 13.06 H* 18.04 H* 22.53 H* 05/13/19 05/13/19 05/14/19 18:52 21:20 00:21 Troponin I 31.18 H* 35.31 H* 38.50 H* 05/14/19 04:37 Troponin I 36.63 H* Diagnostic Imaging: Transthoracic Echocardiogram Study Date: 05/13/2019 Conclusions Mirza - Left ventricle: Systolic function is moderately reduced. The estimated ejection fraction is 30-35%, by visual assessment. Apical akinesis extending to the septum and lateral wall mid cavity. Doppler parameters are consistent with elevated ventricular end-diastolic filling pressure. - Right ventricle: Systolic function is normal. - Mitral valve: There is mild regurgitation. - Pulmonary arteries: Systolic pressure can not be accurately estimated. - Compared with prior echocardiogram of 11/12/18, apical akinesis is new, ejection fraction has decreased from 50-55%, valve function is stabe. 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 Per my conversation with Dr. Flores yesterday he usually takes medications regularly when there and may be helpful to have him in a more familiar environment for medication adherence. Will sign off, please reconsult as needed
[2019-05-15 12:30] LABS: BUN/Creatinine Ratio 14.7 (8-20); Calcium 8.2 mg/dL (8.6-10.3); EGFR African American 79.8 (>60); EGFR Non-African American 65.9 (>60); Potassium 3.3 mmol/L (3.5-5.0)
--- NOTE | 2019-05-15 13:20 | CONSULT ---
Identification - Patient Identification Reason for Psychiatric Consultation: Incapacitating Symptoms -: Patient is a 73 year old, M admitted on 05/13/19. - MHU Identification Employment Status: Disabled Hx Psychiatric Hospitalization: Yes History - Objective HPI: Alfredito is seen for follow up by psychiatry, now on the [address] [place] [address] telemetry unit. I understand that he has resumed PO intake this morning, including oral meds and fluids, and took his AM clozapine without untoward effect. On exam he is disorganized and answers questions briefly and uninformatively. "I'm in heaven. " Exam Appearance: Well Developed/Nourished Hygiene: Normal Grooming: Fairly Well Kept Psychomotor Activities: Abnormal-Decreased Exhibits Abnormal Movement: No Attitude and Relatedness: Minimally Cooperative Eye Contact: Poor - Speech Quality: Unpressured Latencies: Long Quantity: Terse Patient's Decription of Mood: "Fine" Observed Affect: Unvariable Affect Consistent with: Euthymia Patient's Thought Process: Disorganized Thought Content: No Passive Wish, No Suicidal Planning, No Homicidal Ideation, No Paranoid Ideation Experiencing Hallucinations: No, Sensorium is Clear Type of Hallucinations: Visual: No, Auditory: No, Command: No Level of Consciousness: Alert Orientation: No Intact, No Orientated to Time, No Orientated to Place, No Orientated to Person Impulse Control: Poor Insight and Judgement: Impaired Impression - Impression Clinical Impression: 73 y.o. single, white male with a history of schizoaffective disorder, for which he had several decades of long[facility], who is brought in from [facility] where he suffered an acute PR and subsequently was refusing all meds, fluids and meals. Inpatient DSM-V Dx: F25.0 Merits Inpatient Hospitalization: No Plan - Treatment Plan Treatment Plan: Alfredito has now resumed all oral meds, including clozapine. We recommend keeping his clozapine dosing at the current regimen of 100mg in the morning and 200mg in the evening. Psychiatry will continue to follow and manage his clozapine for the duration of hospitalization. Continued Medication Management: Continue Outpt Medication Medications: Current Medications Acetaminophen (Tylenol Tab*) 650 mg PO Q4H PRN PRN Reason: MILD PAIN or TEMP > 100.4 Al Hydrox/Mg Hydrox/Simethicone (Maalox Plus*) 30 ml PO Q6H PRN PRN Reason: INDIGESTION Aspirin (Aspirin Ec Tab*) 81 mg PO DAILY [facility] Last Admin: 05/15/19 10:55 Dose: 81 mg Atorvastatin Calcium (Lipitor*) 80 mg PO BEDTIME [facility]; Protocol Last Admin: 05/14/19 21:14 Dose: Not Given Benztropine Mesylate (Cogentin Tab*) 0.5 mg PO BID [facility] Last Admin: 05/15/19 09:03 Dose: 0.5 mg Bisacodyl (Dulcolax Supp*) 10 mg [place] DAILY PRN PRN Reason: CONSTIPATION Carvedilol (Coreg Tab*) 3.125 mg PO BID [facility] Last Admin: 05/15/19 10:55 Dose: 3.125 mg Cholecalciferol (Vitamin D Tab*) 1,000 units PO DAILY [facility] Last Admin: 05/15/19 10:56 Dose: 1,000 units Clopidogrel Bisulfate (Plavix Tab*) 75 mg PO DAILY [facility] Last Admin: 05/15/19 09:13 Dose: 75 mg Clozapine (Clozapine Tab*) 100 mg PO QAM [facility] Last Admin: 05/15/19 10:54 Dose: 100 mg Clozapine (Clozapine Tab*) 200 mg PO BEDTIME [facility] Last Admin: 05/14/19 21:14 Dose: Not Given Dextrose (Dextrose 50% Vial 50 Ml*) 25 ml IV PUSH .FOR FS < 60 - SS PRN PRN Reason: FS < 60 Docusate Sodium (Colace Cap*) 100 mg PO BID [facility] Last Admin: 05/15/19 10:55 Dose: 100 mg Ferrous Sulfate (Ferrous Sulfate Tab*) 325 mg PO DAILY [facility] Last Admin: 05/15/19 10:55 Dose: 325 mg Heparin Sodium (Porcine) (Heparin Vial(*)) 0 units IV .PER PROTOCOL [facility] Stop: 05/15/19 21:00 Last Admin: 05/13/19 13:18 Dose: 4,000 units Heparin Sodium (Porcine) (Heparin Vial(*)) 5,000 units SUBCUT Q8HR [facility] Levetiracetam (Keppra Iv Premix*) 500 mg in 100 mls @ 400 mls/hr IV 0600,1800 [facility] Last Admin: 05/15/19 09:06 Dose: 400 mls/hr Insulin Glargine (Lantus(*)) 30 units SUBCUT Q12HR [facility] Insulin Human Lispro (Humalog*) 0 units SUBCUT [facility]; Protocol Last Admin: 05/15/19 12:56 Dose: 9 units Lactulose (Lactulose*) 30 ml PO DAILY PRN PRN Reason: CONSTIPATION Lamotrigine (Lamictal Tab(*)) 25 mg PO TID [facility] Last Admin: 05/15/19 10:56 Dose: 25 mg Levothyroxine Sodium (Synthroid Inj*) 50 mcg IV 0600 [facility] Last Admin: 05/15/19 09:07 Dose: 100 mcg Losartan Potassium (Cozaar Tab*) 25 mg PO DAILY [facility] Ondansetron HCl (Zofran Inj*) 4 mg IV Q4H PRN PRN Reason: NAUSEA/VOMITING Pantoprazole Sodium (Protonix Tab*) 40 mg PO DAILY [facility] Last Admin: 05/15/19 10:56 Dose: 40 mg Polyethylene Glycol/Electrolytes (Miralax*) 17 gm PO DAILY PRN PRN Reason: CONSTIPATION Risperidone (Risperdal*) 1 mg PO BID [facility] Last Admin: 05/15/19 09:09 Dose: 1 mg Senna (Senokot 8.6 Mg Tab*) 2 tab PO BID [facility] Last Admin: 05/15/19 10:54 Dose: 2 tab
[2019-05-15] MEDS: Atorvastatin* 80 MG TAB PO SCH (22:24)
[2019-05-16] MEDS: Levothyroxine INJ* 100 MCG/5 ML VIAL IV SCH (05:33)
[2019-05-16] MEDS: levETIRAcetam 500 MG IVPREMIX* 500 MG/100 ML BAG IV SCH ×2 (05:34→17:24)
[2019-05-16] MEDS: Benztropine TAB* 1 MG PO SCH ×3 (08:34→23:16)
[2019-05-16] MEDS: Cholecalciferol TAB* 1000 UNITS PO SCH ×2 (08:35→10:17)
[2019-05-16] MEDS: Clopidogrel TAB* 75 MG PO SCH ×2 (08:35→10:17)
[2019-05-16] MEDS: CloZAPine TAB* 100 MG TAB PO SCH ×3 (08:36→23:27)
[2019-05-16] MEDS: Heparin VIAL(*) 5000 UNITS/ML VIAL (FIVE THOUSAND) SUBCUT SCH ×3 (08:49→23:29)
[2019-05-16] MEDS: Aspirin EC TAB* 81 MG TAB.EC PO SCH (10:16)
[2019-05-16] MEDS: Ferrous Sulfate TAB* 325 MG PO SCH (10:17)
[2019-05-16] MEDS: lamoTRIgine TAB(*) 25 MG PO SCH ×3 (10:17→23:15)
[2019-05-16] MEDS: Pantoprazole TAB * 40 MG TAB PO SCH (10:17)
[2019-05-16] MEDS: Docusate CAP* 100 MG PO SCH ×2 (10:17→23:20)
[2019-05-16] MEDS: Losartan TAB* 25 MG PO SCH (10:17)
[2019-05-16] MEDS: risperiDONE TAB* 1 MG PO SCH ×2 (10:17→23:14)
[2019-05-16] MEDS: Carvedilol TAB* 3.125 MG PO SCH ×2 (10:17→23:13)
[2019-05-16] MEDS: Senna TAB 8.6 mg* TAB PO SCH ×2 (10:18→23:21)
[2019-05-16] MEDS: Insulin LISPRO* 1 UNITS UNIT SUBCUT SCH ×3 (10:18→17:04)
[2019-05-16] MEDS ORDERED: Insulin GLARGINE(*) 1 UNITS UNIT SUBCUT ONE (10:47)
[2019-05-16] MEDS: Insulin GLARGINE(*) 1 UNITS UNIT SUBCUT SCH ×2 (11:09→23:03)
[2019-05-16 11:33] LABS: BUN/Creatinine Ratio 15.9 (8-20); EGFR African American 81.5 (>60); EGFR Non-African American 67.4 (>60); Potassium 3.5 mmol/L (3.5-5.0)
--- NOTE | 2019-05-16 16:20 | PN ---
Subjective Date of Service: 05/16/19 Interval History: Patient answered that he was "terrible" but did not answer other questions meaningfully and volunteered no other c/o/. Objective Active Medications: Acetaminophen (Tylenol Tab*) 650 mg PO Q4H PRN PRN Reason: MILD PAIN or TEMP > 100.4 Al Hydrox/Mg Hydrox/Simethicone (Maalox Plus*) 30 ml PO Q6H PRN PRN Reason: INDIGESTION Aspirin (Aspirin Ec Tab*) 81 mg PO DAILY [facility] Last Admin: 05/16/19 10:16 Dose: Not Given Atorvastatin Calcium (Lipitor*) 80 mg PO BEDTIME [facility]; Protocol Last Admin: 05/15/19 22:24 Dose: 80 mg Benztropine Mesylate (Cogentin Tab*) 0.5 mg PO BID [facility] Last Admin: 05/16/19 10:16 Dose: Not Given Bisacodyl (Dulcolax Supp*) 10 mg [place] DAILY PRN PRN Reason: CONSTIPATION Carvedilol (Coreg Tab*) 3.125 mg PO BID [facility] Last Admin: 05/16/19 10:17 Dose: Not Given Cholecalciferol (Vitamin D Tab*) 1,000 units PO DAILY [facility] Last Admin: 05/16/19 10:17 Dose: Not Given Clopidogrel Bisulfate (Plavix Tab*) 75 mg PO DAILY [facility] Last Admin: 05/16/19 10:17 Dose: Not Given Clozapine (Clozapine Tab*) 100 mg PO QAM [facility] Last Admin: 05/16/19 10:17 Dose: Not Given Clozapine (Clozapine Tab*) 200 mg PO BEDTIME [facility] Last Admin: 05/15/19 22:23 Dose: 200 mg Dextrose (Dextrose 50% Vial 50 Ml*) 25 ml IV PUSH .FOR FS < 60 - SS PRN PRN Reason: FS < 60 Docusate Sodium (Colace Cap*) 100 mg PO BID [facility] Last Admin: 05/16/19 10:17 Dose: Not Given Ferrous Sulfate (Ferrous Sulfate Tab*) 325 mg PO DAILY [facility] Last Admin: 05/16/19 10:17 Dose: Not Given Heparin Sodium (Porcine) (Heparin Vial(*)) 5,000 units SUBCUT Q8HR [facility] Last Admin: 05/16/19 14:12 Dose: 5,000 units Levetiracetam (Keppra Iv Premix*) 500 mg in 100 mls @ 400 mls/hr IV 0600,1800 [facility] Last Admin: 05/16/19 05:34 Dose: 400 mls/hr Insulin Glargine (Lantus(*)) 15 units SUBCUT Q12HR [facility] Insulin Human Lispro (Humalog*) 0 units SUBCUT AC [facility]; Protocol Last Admin: 05/16/19 14:12 Dose: 3 units Lactulose (Lactulose*) 30 ml PO DAILY PRN PRN Reason: CONSTIPATION Lamotrigine (Lamictal Tab(*)) 25 mg PO TID [facility] Last Admin: 05/16/19 14:14 Dose: Not Given Levothyroxine Sodium (Synthroid Inj*) 50 mcg IV 0600 [facility] Last Admin: 05/16/19 05:33 Dose: 50 mcg Losartan Potassium (Cozaar Tab*) 25 mg PO DAILY [facility] Last Admin: 05/16/19 10:17 Dose: Not Given Ondansetron HCl (Zofran Inj*) 4 mg IV Q4H PRN PRN Reason: NAUSEA/VOMITING Pantoprazole Sodium (Protonix Tab*) 40 mg PO DAILY [facility] Last Admin: 05/16/19 10:17 Dose: Not Given Polyethylene Glycol/Electrolytes (Miralax*) 17 gm PO DAILY PRN PRN Reason: CONSTIPATION Risperidone (Risperdal*) 1 mg PO BID [facility] Last Admin: 05/16/19 10:17 Dose: Not Given Senna (Senokot 8.6 Mg Tab*) 2 tab PO BID [facility] Last Admin: 05/16/19 10:18 Dose: Not Given Vital Signs - 8 hr 05/16/19 05/16/19 11:48 15:06 Temperature 97.4 F 97.9 F Pulse Rate 69 75 Respiratory 16 17 Rate Blood Pressure 92/53 98/54 (mmHg) O2 Sat by Pulse 99 98 Oximetry Oxygen Devices in Use Now: Nasal Cannula Appearance: ? somnolent, supine in bed, eyes closed. Looks comfortable. Eyes: No Scleral Icterus Neck: NL Appearance and Movements; NL JVP, No Thyroid Enlargement, Masses Respiratory: Symmetrical Chest Expansion and Respiratory Effort, Clear to Auscultation, Clear to Percussion Cardiovascular: NL Sounds; No Murmurs; No JVD, RRR, No Edema, - Extremities: No Clubbing, Cyanosis, - - 1+ pedal edema BL Skin: No Rash or Ulcers, No Nodules or Sclerosis, - Neurological: NL Sensation, - - Ignores most questions. No tremor. Result Diagrams: 05/15/19 05:08 05/16/19 11:07 Microbiology and Other Data: Microbiology 05/13/19 16:22 Nasal Screen MRSA (PCR) - Final Nasal Mrsa Not Detected Assess/Plan/Problems-Billing Mr Bell is a 73 yo M who has a h/o bipolar disorder with severe annabelle and psychosis, type II DM, HTN, hypothyroidism, seizure disorder and antiphospholipid Ab syndrome who presented [place] [facility] [place]/o abdominal pain and was found to be having an acute MS. - Patient Problems (1) NSTEMI (non-ST elevated myocardial infarction) Current Visit: Yes Status: Acute Code(s): I21.4 - NON-ST ELEVATION (NSTEMI) MYOCARDIAL INFARCTION SNOMED Code(s): 70001694 Comment: Continue medical management. Only accepted one dose of po ASA and one dose of po clopidogrel as of 05/16. Hold lasix for now as he is not really eating/drinking and is at risk of becoming volume deplete if he takes the lasix but doesnt eat/drink. (2) Bipolar 1 disorder Current Visit: Yes Status: Acute Code(s): F31.9 - BIPOLAR DISORDER, UNSPECIFIED SNOMED Code(s): 431321861 Comment: Pt is on clozapine and risperdal, but accepts them erratically, refusing most doses. Appreciate psych input. (3) Seizure disorder Current Visit: Yes Status: Acute Code(s): G40.909 - EPILEPSY, UNSP, NOT INTRACTABLE, WITHOUT STATUS EPILEPTICUS SNOMED Code(s): 030985389 Comment: Pt is on IV keppra and lamictal as he is taking his oral meds very erratically. Once regularly taking oral meds, could stop lamotrigine. Refused last 3 doses of lamotrigine as of 05/16. (4) Hypothyroidism Current Visit: Yes Status: Acute Code(s): E03.9 - HYPOTHYROIDISM, UNSPECIFIED SNOMED Code(s): 08097863 Comment: Continue current dose of synthroid. TSH is in good range. (5) HTN (hypertension) Current Visit: Yes Status: Acute Code(s): I10 - ESSENTIAL (PRIMARY) HYPERTENSION SNOMED Code(s): 61149604 Comment: Continue losartan and carvedilol despite low systolic BP due to low LVEF. (6) Type 2 diabetes mellitus Current Visit: Yes Status: Acute Comment: Continue lantus andLispro. Not A1C 7.4% on 05/15/19. (7) Chronic GERD Current Visit: Yes Status: Acute Code(s): K21.9 - GASTRO-ESOPHAGEAL REFLUX DISEASE WITHOUT ESOPHAGITIS SNOMED Code(s): 775134719 Comment: Continue protonix. (8) Legally blind Current Visit: No Status: Acute Code(s): H54.8 - LEGAL BLINDNESS, DEFINED IN [place] SNOMED Code(s): 23013943 Comment: Dx noted.
[2019-05-16] MEDS: Atorvastatin* 80 MG TAB PO SCH (23:17)
[2019-05-17] MEDS ORDERED: Amiodarone 150 MG IVPREMIX* 1.5 MG/ML 100 ML BAG IV ONE (05:12)
[2019-05-17] MEDS ORDERED: Amiodarone IV VIAL** 50 MG/ML 3 ML (150 MG) VIAL IV PUSH ONE (05:12)
[2019-05-17] MEDS ORDERED: Amiodarone 150 MG IVPREMIX* 150 MG/100 ML BAG IV ONE (05:25)
[2019-05-17] MEDS ORDERED: Amiodarone 360 MG IVPREMIX* 360 MG/200 ML BAG IV ONE (05:30)
[2019-05-17] MEDS: Heparin VIAL(*) 5000 UNITS/ML VIAL (FIVE THOUSAND) SUBCUT SCH ×3 (06:13→22:38)
[2019-05-17] MEDS: Levothyroxine INJ* 100 MCG/5 ML VIAL IV SCH (06:13)
[2019-05-17] MEDS: levETIRAcetam 500 MG IVPREMIX* 500 MG/100 ML BAG IV SCH ×2 (06:16→19:16)
[2019-05-17 06:28] LABS: BUN/Creatinine Ratio 14.6 (8-20); Calcium 8.5 mg/dL (8.6-10.3); EGFR African American 57.9 (>60); EGFR Non-African American 47.8 (>60); Potassium 4.3 mmol/L (3.5-5.0)
[2019-05-17] MEDS: Insulin LISPRO* 1 UNITS UNIT SUBCUT SCH ×3 (09:00→19:03)
[2019-05-17] MEDS: Insulin GLARGINE(*) 1 UNITS UNIT SUBCUT SCH ×2 (09:01→21:14)
[2019-05-17] MEDS: Aspirin EC TAB* 81 MG TAB.EC PO SCH (09:02)
[2019-05-17] MEDS: Benztropine TAB* 1 MG PO SCH ×2 (09:02→21:07)
[2019-05-17] MEDS: Cholecalciferol TAB* 1000 UNITS PO SCH (09:03)
[2019-05-17] MEDS: Docusate CAP* 100 MG PO SCH ×2 (09:03→21:08)
[2019-05-17] MEDS: Carvedilol TAB* 3.125 MG PO SCH ×2 (09:03→21:08)
[2019-05-17] MEDS: CloZAPine TAB* 100 MG TAB PO SCH ×2 (09:03→21:08)
[2019-05-17] MEDS: Clopidogrel TAB* 75 MG PO SCH (09:03)
[2019-05-17] MEDS: Pantoprazole TAB * 40 MG TAB PO SCH (09:04)
[2019-05-17] MEDS: Ferrous Sulfate TAB* 325 MG PO SCH (09:04)
[2019-05-17] MEDS: Losartan TAB* 25 MG PO SCH (09:04)
[2019-05-17] MEDS: risperiDONE TAB* 1 MG PO SCH ×2 (09:04→21:09)
[2019-05-17] MEDS: lamoTRIgine TAB(*) 25 MG PO SCH ×3 (09:04→21:08)
[2019-05-17] MEDS: Senna TAB 8.6 mg* TAB PO SCH ×2 (09:05→21:09)
[2019-05-17] MEDS: Albuterol 2.5 MG/3 ML NEB.SOL* (0.083%) INH PRN (09:26)
--- NOTE | 2019-05-17 09:28 | PN ---
Subjective Date of Service: 05/17/19 Interval History: Patient offers no c/o, doesn't seem to understand my questions. Objective Active Medications: Acetaminophen (Tylenol Tab*) 650 mg PO Q4H PRN PRN Reason: MILD PAIN or TEMP > 100.4 Acetaminophen (Tylenol Supp*) 650 mg ND Q4H PRN PRN Reason: TEMPERATURE > 100.4 Al Hydrox/Mg Hydrox/Simethicone (Maalox Plus*) 30 ml PO Q6H PRN PRN Reason: INDIGESTION Albuterol (Ventolin 2.5 Mg/3 Ml Neb.Kaila*) 2.5 mg INH Q4H PRN PRN Reason: SOB/WHEEZING Aspirin (Aspirin Ec Tab*) 81 mg PO DAILY ON LICENSE OF [facility] Last Admin: 05/17/19 09:02 Dose: Not Given Atorvastatin Calcium (Lipitor*) 80 mg PO BEDTIME ON LICENSE OF [facility]; Protocol Last Admin: 05/16/19 23:17 Dose: 80 mg Benztropine Mesylate (Cogentin Tab*) 0.5 mg PO BID ON [facility] OF [facility] Last Admin: 05/17/19 09:02 Dose: Not Given Bisacodyl (Dulcolax Supp*) 10 mg ND DAILY PRN PRN Reason: CONSTIPATION Carvedilol (Coreg Tab*) 3.125 mg PO BID ON [facility] OF [facility] Last Admin: 05/17/19 09:03 Dose: Not Given Cholecalciferol (Vitamin D Tab*) 1,000 units PO DAILY ON [facility] Last Admin: 05/17/19 09:03 Dose: Not Given Clopidogrel Bisulfate (Plavix Tab*) 75 mg PO DAILY ON [facility] Last Admin: 05/17/19 09:03 Dose: Not Given Clozapine (Clozapine Tab*) 100 mg PO QAM ON LICENSE OF [facility] Last Admin: 05/17/19 09:03 Dose: Not Given Clozapine (Clozapine Tab*) 200 mg PO BEDTIME ON [facility] Last Admin: 05/16/19 23:27 Dose: 200 mg Dextrose (Dextrose 50% Vial 50 Ml*) 25 ml IV PUSH .FOR FS < 60 - SS PRN PRN Reason: FS < 60 Docusate Sodium (Colace Cap*) 100 mg PO BID ON [facility] OF [facility] Last Admin: 05/17/19 09:03 Dose: Not Given Ferrous Sulfate (Ferrous Sulfate Tab*) 325 mg PO DAILY ON [facility] Last Admin: 05/17/19 09:04 Dose: Not Given Heparin Sodium (Porcine) (Heparin Vial(*)) 5,000 units SUBCUT Q8HR ON [facility] OF [facility] Last Admin: 05/17/19 06:13 Dose: 5,000 units Levetiracetam (Keppra Iv Premix*) 500 mg in 100 mls @ 400 mls/hr IV 0600,1800 ON [facility] Last Admin: 05/17/19 06:16 Dose: 400 mls/hr Amiodarone HCl (Nexterone 360 Mg/200 Ml Ivpremix*) 360 mg in 200 mls @ 33.333 mls/hr IV ONCE ONE Stop: 05/17/19 11:29 Last Admin: 05/17/19 05:43 Dose: 33.333 mls/hr Amiodarone HCl (Nexterone 360 Mg/200 Ml Ivpremix*) 360 mg in 200 mls @ 16.667 mls/hr IV .SEE PROTOCOL DARRELL; Protocol Potassium Chloride/Dextrose (D5w 1/2 Ns Kcl 20 Meq 1000 Ml*) 1,000 mls @ 125 mls/hr IV PER RATE ON LICENSE OF [facility] Piperacillin Sod/Tazobactam (Sod 3.375 gm/ Sodium Chloride) 100 mls @ 25 mls/ hr IVPB Q8H ON LICENSE OF [facility] Insulin Glargine (Lantus(*)) 15 units SUBCUT Q12HR ON [facility] OF [facility] Last Admin: 05/17/19 09:01 Dose: 15 units Insulin Human Lispro (Humalog*) 0 units SUBCUT AC ON [facility] OF [facility]; Protocol Last Admin: 05/17/19 09:00 Dose: 15 units Lactulose (Lactulose*) 30 ml PO DAILY PRN PRN Reason: CONSTIPATION Lamotrigine (Lamictal Tab(*)) 25 mg PO TID ON LICENSE OF [facility] Last Admin: 05/17/19 09:04 Dose: Not Given Levothyroxine Sodium (Synthroid Inj*) 50 mcg IV 0600 ON [facility] Last Admin: 05/17/19 06:13 Dose: 50 mcg Losartan Potassium (Cozaar Tab*) 25 mg PO DAILY ON [facility] Last Admin: 05/17/19 09:04 Dose: Not Given Ondansetron HCl (Zofran Inj*) 4 mg IV Q4H PRN PRN Reason: NAUSEA/VOMITING Pantoprazole Sodium (Protonix Tab*) 40 mg PO DAILY ON [facility] OF [facility] Last Admin: 05/17/19 09:04 Dose: Not Given Polyethylene Glycol/Electrolytes (Miralax*) 17 gm PO DAILY PRN PRN Reason: CONSTIPATION Risperidone (Risperdal*) 1 mg PO BID ON LICENSE OF [facility] Last Admin: 05/17/19 09:04 Dose: Not Given Senna (Senokot 8.6 Mg Tab*) 2 tab PO BID ON [facility] OF [facility] Last Admin: 05/17/19 09:05 Dose: Not Given Vital Signs - 8 hr 05/17/19 05/17/19 05/17/19 02:30 03:51 05:14 Temperature 97.7 F 97.9 F 97.4 F Pulse Rate 110 120 115 Respiratory 24 22 28 Rate Blood Pressure 106/70 109/71 102/69 (mmHg) O2 Sat by Pulse 96 98 96 Oximetry 05/17/19 05/17/19 05/17/19 05:35 05:48 06:00 Temperature 100.9 F 100.9 F 100.9 F Pulse Rate 108 104 Respiratory 28 28 Rate Blood Pressure 110/71 92/71 109/71 (mmHg) O2 Sat by Pulse 97 91 Oximetry 05/17/19 05/17/19 05/17/19 06:15 06:31 06:45 Temperature 100.9 F 98.4 F 100.2 F Pulse Rate 105 106 103 Respiratory 32 Rate Blood Pressure 109/74 97/77 109/69 (mmHg) O2 Sat by Pulse 92 91 91 Oximetry 05/17/19 05/17/19 05/17/19 07:00 07:15 07:30 Temperature 100.6 F 100.8 F 100.8 F Pulse Rate 103 103 104 Respiratory 26 20 38 Rate Blood Pressure 110/74 107/77 107/73 (mmHg) O2 Sat by Pulse 92 93 93 Oximetry 05/17/19 05/17/19 05/17/19 07:45 08:00 08:15 Temperature 100.6 F 100.6 F 100.6 F Pulse Rate 102 101 102 Respiratory 45 Rate Blood Pressure 108/75 114/66 109/80 (mmHg) O2 Sat by Pulse 93 93 93 Oximetry 05/17/19 05/17/19 08:30 08:46 Temperature 100.6 F 100.4 F Pulse Rate 100 101 Respiratory Rate Blood Pressure 110/78 122/73 (mmHg) O2 Sat by Pulse 93 93 Oximetry Oxygen Devices in Use Now: Nasal Cannula Appearance: Alert, partly up in ICU bed. Sl agitated. Respiratory: Symmetrical Chest Expansion and Respiratory Effort, Clear to Auscultation, Clear to Percussion, - - clear anteriorly Extremities: No Edema, No Clubbing, Cyanosis, - Skin: No Rash or Ulcers, No Nodules or Sclerosis, - Neurological: NL Sensation - No tremor. Poor communication skills. Result Diagrams: 05/15/19 05:08 05/17/19 05:55 Microbiology and Other Data: Microbiology 05/13/19 16:22 Nasal Screen MRSA (PCR) - Final Nasal Mrsa Not Detected Assess/Plan/Problems-Billing Mr Bell is a 73 yo M who has a h/o bipolar disorder with severe annabelle and psychosis, type II DM, HTN, hypothyroidism, seizure disorder and antiphospholipid Ab syndrome who presented to [facility] with c/o abdominal pain and was found to be having an acute FL. - Patient Problems (1) NSTEMI (non-ST elevated myocardial infarction) Current Visit: Yes Status: Acute Code(s): I21.4 - NON-ST ELEVATION (NSTEMI) MYOCARDIAL INFARCTION SNOMED Code(s): 25210726 Comment: Continue medical management. Only accepted one dose of po ASA and one dose of po clopidogrel as of 05/16. Hold lasix for now as he is not really eating/drinking. (2) Bipolar 1 disorder Current Visit: Yes Status: Acute Code(s): F31.9 - BIPOLAR DISORDER, UNSPECIFIED SNOMED Code(s): 447721105 Comment: Pt is on clozapine and risperdal, but accepts them erratically, refusing most doses. Appreciate psych input. (3) Seizure disorder Current Visit: Yes Status: Acute Code(s): G40.909 - EPILEPSY, UNSP, NOT INTRACTABLE, WITHOUT STATUS EPILEPTICUS SNOMED Code(s): 432109816 Comment: Pt is on IV keppra and lamictal as he is taking his oral meds very erratically. Once regularly taking oral meds, could stop lamotrigine. Refused last 3 doses of lamotrigine as of 05/16. (4) Hypothyroidism Current Visit: Yes Status: Acute Code(s): E03.9 - HYPOTHYROIDISM, UNSPECIFIED SNOMED Code(s): 47439450 Comment: Continue current dose of synthroid. TSH is in good range. (5) HTN (hypertension) Current Visit: Yes Status: Acute Code(s): I10 - ESSENTIAL (PRIMARY) HYPERTENSION SNOMED Code(s): 23698686 Comment: Continue losartan and carvedilol despite low systolic BP due to low LVEF. (6) Type 2 diabetes mellitus Current Visit: Yes Status: Acute Comment: Continue lantus andLispro. Note A1C 7.4% on 05/15/19. (7) Chronic GERD Current Visit: Yes Status: Acute Code(s): K21.9 - GASTRO-ESOPHAGEAL REFLUX DISEASE WITHOUT ESOPHAGITIS SNOMED Code(s): 118831269 Comment: Continue protonix. (8) Legally blind Current Visit: No Status: Acute Code(s): H54.8 - LEGAL BLINDNESS, DEFINED IN [place] SNOMED Code(s): 51150810 Comment: Dx noted. (9) Aspiration pneumonia Current Visit: Yes Status: Acute Code(s): J69.0 - PNEUMONITIS DUE TO INHALATION OF FOOD AND VOMIT SNOMED Code(s): 510555108 Comment: RUL infiltrate. Suspect aspiration. ST swallow eval requested. NPO, IV fluids, pip/puja. Blood C&S sent.
[2019-05-17] MEDS ORDERED: Zosyn per Pharmacy* NOTE FOLLOW UP PRN (09:43)
[2019-05-17] MEDS ORDERED: ZOSYN 3.375 GM x ONE DOSE over 30 miuntes IVPB ×2 (10:00)
[2019-05-17] MEDS: Amiodarone 360 MG IVPREMIX* 360 MG/200 ML BAG IV SCH (11:15)
[2019-05-17] MEDS: D5W 1/2 NS KCl 20 Meq 1000 ML* 1,000 ML IV SCH ×2 (11:59→20:11)
[2019-05-17] MEDS: Piperacillin/Tazobac ADVAN(*) 3.375 GM in NS 0.9% 100 ML* 100 ML IVPB SCH ×2 (13:54→22:32)
[2019-05-17] MEDS: Atorvastatin* 80 MG TAB PO SCH (21:09)
[2019-05-18] MEDS: Amiodarone 360 MG IVPREMIX* 360 MG/200 ML BAG IV SCH (00:03)
[2019-05-18] MEDS ORDERED: NS 0.9% 1000 ML** 2,000 ML IV ONE (02:15)
[2019-05-18] MEDS: Piperacillin/Tazobac ADVAN(*) 3.375 GM in NS 0.9% 100 ML* 100 ML IVPB SCH ×3 (05:05→22:13)
[2019-05-18] MEDS: Levothyroxine INJ* 100 MCG/5 ML VIAL IV SCH (05:05)
[2019-05-18] MEDS: Heparin VIAL(*) 5000 UNITS/ML VIAL (FIVE THOUSAND) SUBCUT SCH ×3 (05:05→21:24)
[2019-05-18] MEDS: levETIRAcetam 500 MG IVPREMIX* 500 MG/100 ML BAG IV SCH ×2 (05:05→17:17)
[2019-05-18 05:44] LABS: ABS Lymphocytes 0.7 10^3/ul (1.0-4.8); ABS Monocytes 0.9 10^3/ul (0-0.8); ABS Neutrophils 6.9 10^3/ul (1.5-7.7); Hematocrit 29 % (42-52); Hemoglobin 9.6 g/dL (14.0-18.0); Lymphocyte % 8.7 %; Mean Corpuscular HGB Conc 33 g/dL (31-36); Mean Corpuscular Hemoglobin 29 pg (27-31); Mean Corpuscular Volume 88 fL (80-94); Platelet Count 172 10^3/uL (150-450); Red Blood Count 3.33 10^6 /uL (4.18-5.48); Red Cell Distribution Width 14 % (10-15); White Blood Count 8.6 10^3/uL (3.5-10.8)
[2019-05-18 06:03] LABS: BUN/Creatinine Ratio 18.9 (8-20); EGFR African American 93.5 (>60); EGFR Non-African American 77.3 (>60); Potassium 3.4 mmol/L (3.5-5.0)
[2019-05-18 06:18] LABS: Calcium 6.2 mg/dL (8.6-10.3)
[2019-05-18] MEDS ORDERED: Calcium Gluconate INJ* 1 GM in NS 0.9% 50 ML* 50 ML IV ONE (08:00)
[2019-05-18] MEDS: Insulin LISPRO* 1 UNITS UNIT SUBCUT SCH ×4 (08:08→23:16)
[2019-05-18] MEDS: Insulin GLARGINE(*) 1 UNITS UNIT SUBCUT SCH ×2 (08:09→20:59)
[2019-05-18] MEDS: Clopidogrel TAB* 75 MG PO SCH (08:22)
[2019-05-18] MEDS: Cholecalciferol TAB* 1000 UNITS PO SCH (08:22)
[2019-05-18] MEDS: Benztropine TAB* 1 MG PO SCH ×2 (08:22→20:53)
[2019-05-18] MEDS: Aspirin EC TAB* 81 MG TAB.EC PO SCH (08:22)
[2019-05-18] MEDS: Carvedilol TAB* 3.125 MG PO SCH ×2 (08:22→20:56)
[2019-05-18] MEDS: Losartan TAB* 25 MG PO SCH (08:23)
[2019-05-18] MEDS: Pantoprazole TAB * 40 MG TAB PO SCH (08:23)
[2019-05-18] MEDS: risperiDONE TAB* 1 MG PO SCH ×2 (08:23→20:57)
[2019-05-18] MEDS: Ferrous Sulfate TAB* 325 MG PO SCH (08:23)
[2019-05-18] MEDS: lamoTRIgine TAB(*) 25 MG PO SCH ×3 (08:23→21:03)
[2019-05-18] MEDS: Docusate CAP* 100 MG PO SCH ×2 (08:23→20:56)
[2019-05-18] MEDS: CloZAPine TAB* 100 MG TAB PO SCH (08:23)
[2019-05-18] MEDS: Senna TAB 8.6 mg* TAB PO SCH ×2 (08:24→20:53)
[2019-05-18] MEDS: Albuterol 2.5 MG/3 ML NEB.SOL* (0.083%) INH PRN (08:27)
[2019-05-18] MEDS ORDERED: Furosemide IV* 10 MG/ML VIAL (40 MG) IV ONE ×2 (10:55→18:00)
--- NOTE | 2019-05-18 12:22 | PN ---
Date of Service: 05/18/19 Critical Care Services: Returned to ICU for wide complex tachycardia managed with amio gtt. Vital Signs: Temp Pulse Resp BP SpO2 FiO2 36.9 C 92 28 143/89 99 2 05/18/19 08:33 05/18/19 11:01 05/18/19 10:30 05/18/19 11:01 05/18/19 11:01 05/18 04:00 Physical Exam: Gen: refusing most interventions and PO medications. HEENT: NCAT, PERRL Lungs: scant rhonchi Cardiac: S1S2 regular Abdomen: soft, NT, ND, +BS Extremities: +1 edema Neuro: grossly non-focal, knows where and what but lacks insight. Fluid Balance (Past 24 Hours): I= O= Net Intake & Output 05/16/19 05/17/19 05/18/19 05/19/19 06:59 06:59 06:59 06:59 Intake Total 1801.8 900 1288 Output Total 275 350 Balance 1526.8 550 1288 Weight 97.159 kg 102.965 kg 101.4 kg Intake: IV Fluids 1003.4 948 D5W 1/2 NS 20 meq KCL 722 NS (0.9%) 1003.4 126 Zosyn 100 IVPB 208 114 Keppra 208 Zosyn 114 Medicated IV 226 CC - Amiodarone 226 Heparin 70.4 Oral 520 900 0 Output: Urine 0 Daugherty 275 350 Other: Estimated Void Small Large # Voids 2 Labs: Laboratory Results - last 24 hr 05/17/19 05/17/19 05/17/19 12:21 12:25 12:37 WBC RBC Hgb Hct MCV MCH MCHC RDW Plt Count MPV Neut % (Auto) Lymph % (Auto) [place] % (Auto) Eos % (Auto) Baso % (Auto) Absolute Neuts (auto) Absolute Lymphs (auto) Absolute Monos (auto) Absolute Eos (auto) Absolute Basos (auto) Absolute Nucleated RBC Nucleated RBC % Sodium Potassium Chloride Carbon Dioxide Anion Gap BUN Creatinine Est GFR ( Amer) Est GFR (Non-Af Amer) BUN/Creatinine Ratio Glucose POC Glucose (mg/dL) 421 H* 325 H Glucose Meter Confirm 388 H Calcium 05/17/19 05/17/19 05/18/19 18:39 21:07 00:54 WBC RBC Hgb Hct MCV MCH MCHC RDW Plt Count MPV Neut % (Auto) Lymph % (Auto) [place] % (Auto) Eos % (Auto) Baso % (Auto) Absolute Neuts (auto) Absolute Lymphs (auto) Absolute Monos (auto) Absolute Eos (auto) Absolute Basos (auto) Absolute Nucleated RBC Nucleated RBC % Sodium Potassium Chloride Carbon Dioxide Anion Gap BUN Creatinine Est GFR ( Amer) Est GFR (Non-Af Amer) BUN/Creatinine Ratio Glucose POC Glucose (mg/dL) 294 H 299 H 252 H Glucose Meter Confirm Calcium 05/18/19 05/18/19 05/18/19 05:18 05:18 08:01 WBC 8.6 RBC 3.33 L Hgb 9.6 L Hct 29 L MCV 88 MCH 29 MCHC 33 RDW 14 Plt Count 172 MPV 8.0 Neut % (Auto) 80.6 Lymph % (Auto) 8.7 Shackelford % (Auto) 10.4 Eos % (Auto) 0.0 Baso % (Auto) 0.3 Absolute Neuts (auto) 6.9 Absolute Lymphs (auto) 0.7 L Absolute Monos (auto) 0.9 H Absolute Eos (auto) 0.0 Absolute Basos (auto) 0.0 Absolute Nucleated RBC 0.0 Nucleated RBC % 0.0 Sodium 140 Potassium 3.4 L Chloride 114 H Carbon Dioxide 20 L Anion Gap 6 BUN 18 Creatinine 0.95 Est GFR ( Amer) 93.5 Est GFR (Non-Af Amer) 77.3 BUN/Creatinine Ratio 18.9 Glucose 206 H POC Glucose (mg/dL) 280 H Glucose Meter Confirm Calcium 6.2 L* Studies: CXR 05/17 with CHF R>L, can't exclude a consolidation on the right Nutrition: Intermittently takes PO Impression: 73 y/o male with complex psychiatric and medical history admitted to [facility] with NSTEMI and refused care which his niece, who acts in HCP capacity, states we should allow him to do according to SW here at [facility]. He returned to ICU with wide complex tachycardia but ultimately will not allow definitive intervention and this mitigates the benefit of ICU care. He clearly has significant volume on board and I have begun to diurese him in that respect which will likely do as much toward controlling arrhythmia as the amio. I have discussed with Dr. Shah who will accept him to general medicine with no clear benefit of ICU care at this time. Plan: NSTEMI - no direct intervention, refusing most care. Wide complex tachycardia abated. Amio gtt completed, refusing PO. CHF - DC IVF, needs lasix, will order BID today. Multiple comorbidities as extensively documented by Dr. Shah not currently being managed even though they are prescribed as patient is currently refusing most care. He is currently hyperglycemic and has an insulin sliding scale as well as Lantus but i am hesitant to increase his lantus when his PO status waxes and wanes in fear of causing hypoglycemia in a patient who may also refuse FS. No benefit to ICU care at this time, Ok to floor as D/W Dr. Shah.
--- NOTE | 2019-05-18 13:57 | CONSULT ---
Identification - Patient Identification Reason for Psychiatric Consultation: Incapacitating Symptoms -: Patient is a 73 year old, M admitted on 05/13/19. - MHU Identification Employment Status: Disabled Hx Psychiatric Hospitalization: Yes History - Objective HPI: Alfredito is seen for follow up by psychiatry in his room on the ICU. I didn't get much from Alfredito in terms of coherent speech. He mostly mumbled to himself with his eyes closed. I gather from weekend notes that he was non-adherent with oral meds and this puts him at risk for a bad reaction to his fairly large clozapine dose in the event that he resumes it after being off for awhile. Exam Appearance: Well Developed/Nourished Hygiene: Normal Grooming: Fairly Well Kept Psychomotor Activities: Abnormal-Decreased Exhibits Abnormal Movement: No Attitude and Relatedness: Minimally Cooperative Eye Contact: Poor - Speech Quality: Unpressured Latencies: Long Quantity: Terse Patient's Decription of Mood: "Fine" Observed Affect: Unvariable Affect Consistent with: Euthymia Patient's Thought Process: Disorganized Thought Content: No Passive Wish, No Suicidal Planning, No Homicidal Ideation, No Paranoid Ideation Experiencing Hallucinations: No, Sensorium is Clear Type of Hallucinations: Visual: No, Auditory: No, Command: No Level of Consciousness: Lethargic Orientation: No Intact, No Orientated to Time, No Orientated to Place, No Orientated to Person Impulse Control: Poor Insight and Judgement: Impaired Impression - Impression Clinical Impression: 73 y.o. single, white male with a history of schizoaffective disorder, for which he had several decades of long[facility], who is brought in from [facility] where he suffered an acute NM and subsequently was refusing all meds, fluids and meals. Inpatient DSM-V Dx: F25.0 Merits Inpatient Hospitalization: No Plan - Treatment Plan Treatment Plan: Alfredito is non-adherent with clozapine, along with other PO meds. We will decrease the clozapine dose to 75mg PO BID to prevent AMS from reinitiation. Psychiatry will continue to follow and manage his clozapine for the duration of hospitalization. Continued Medication Management: Continue Outpt Medication Medications: Current Medications Acetaminophen (Tylenol Tab*) 650 mg PO Q4H PRN PRN Reason: MILD PAIN or TEMP > 100.4 Acetaminophen (Tylenol Supp*) 650 mg [place] Q4H PRN PRN Reason: TEMPERATURE > 100.4 Al Hydrox/Mg Hydrox/Simethicone (Maalox Plus*) 30 ml PO Q6H PRN PRN Reason: INDIGESTION Albuterol (Ventolin 2.5 Mg/3 Ml Neb.Kaila*) 2.5 mg INH Q4H PRN PRN Reason: SOB/WHEEZING Last Admin: 05/18/19 08:27 Dose: 2.5 mg Aspirin (Aspirin Ec Tab*) 81 mg PO DAILY [facility] Last Admin: 05/18/19 08:22 Dose: Not Given Atorvastatin Calcium (Lipitor*) 80 mg PO BEDTIME [facility]; Protocol Last Admin: 05/17/19 21:09 Dose: Not Given Benztropine Mesylate (Cogentin Tab*) 0.5 mg PO BID [facility] Last Admin: 05/18/19 08:22 Dose: Not Given Bisacodyl (Dulcolax Supp*) 10 mg [place] DAILY PRN PRN Reason: CONSTIPATION Carvedilol (Coreg Tab*) 3.125 mg PO BID [facility] Last Admin: 05/18/19 08:22 Dose: Not Given Cholecalciferol (Vitamin D Tab*) 1,000 units PO DAILY [facility] Last Admin: 05/18/19 08:22 Dose: Not Given Clopidogrel Bisulfate (Plavix Tab*) 75 mg PO DAILY [facility] Last Admin: 05/18/19 08:22 Dose: Not Given Clozapine (Clozapine Tab*) 75 mg PO BID [facility] Dextrose (Dextrose 50% Vial 50 Ml*) 25 ml IV PUSH .FOR FS < 60 - SS PRN PRN Reason: FS < 60 Docusate Sodium (Colace Cap*) 100 mg PO BID [facility] Last Admin: 05/18/19 08:23 Dose: Not Given Ferrous Sulfate (Ferrous Sulfate Tab*) 325 mg PO DAILY [facility] Last Admin: 05/18/19 08:23 Dose: Not Given Furosemide (Lasix Iv*) 40 mg IV ONCE ONE Stop: 05/18/19 18:01 Heparin Sodium (Porcine) (Heparin Vial(*)) 5,000 units SUBCUT Q8HR [facility] Last Admin: 05/18/19 13:20 Dose: 5,000 units Levetiracetam (Keppra Iv Premix*) 500 mg in 100 mls @ 400 mls/hr IV 0600,1800 [facility] Last Admin: 05/18/19 05:05 Dose: 400 mls/hr Piperacillin Sod/Tazobactam (Sod 3.375 gm/ Sodium Chloride) 100 mls @ 25 mls/ hr IVPB Q8H [facility] Last Admin: 05/18/19 13:20 Dose: 25 mls/hr Insulin Glargine (Lantus(*)) 15 units SUBCUT Q12HR [facility] Last Admin: 05/18/19 08:09 Dose: 15 units Insulin Human Lispro (Humalog*) 0 units SUBCUT AC [facility]; Protocol Last Admin: 05/18/19 12:39 Dose: 9 units Lactulose (Lactulose*) 30 ml PO DAILY PRN PRN Reason: CONSTIPATION Lamotrigine (Lamictal Tab(*)) 25 mg PO TID [facility] Last Admin: 05/18/19 13:15 Dose: Not Given Levothyroxine Sodium (Synthroid Inj*) 50 mcg IV 0600 [facility] Last Admin: 05/18/19 05:05 Dose: 50 mcg Losartan Potassium (Cozaar Tab*) 25 mg PO DAILY [facility] Last Admin: 05/18/19 08:23 Dose: Not Given Ondansetron HCl (Zofran Inj*) 4 mg IV Q4H PRN PRN Reason: NAUSEA/VOMITING Pantoprazole Sodium (Protonix Tab*) 40 mg PO DAILY [facility] Last Admin: 05/18/19 08:23 Dose: Not Given Pharmacy Consult (Zosyn Per Pharmacy*) 1 note FOLLOW UP . PRN PRN Reason: PER PROTOCOL Polyethylene Glycol/Electrolytes (Miralax*) 17 gm PO DAILY PRN PRN Reason: CONSTIPATION Risperidone (Risperdal*) 1 mg PO BID [facility] Last Admin: 05/18/19 08:23 Dose: Not Given Senna (Senokot 8.6 Mg Tab*) 2 tab PO BID [facility] Last Admin: 05/18/19 08:24 Dose: Not Given
[2019-05-18 15:23] LABS: Creatine Kinase 1589 U/L (39 - 308)
[2019-05-18] MEDS: Atorvastatin* 80 MG TAB PO SCH (20:56)
[2019-05-18] MEDS: CloZAPine TAB* 25 MG TAB PO SCH (21:03)
[2019-05-19] MEDS: Piperacillin/Tazobac ADVAN(*) 3.375 GM in NS 0.9% 100 ML* 100 ML IVPB SCH ×2 (05:35→13:48)
[2019-05-19] MEDS: levETIRAcetam 500 MG IVPREMIX* 500 MG/100 ML BAG IV SCH ×2 (05:36→17:00)
[2019-05-19] MEDS: Heparin VIAL(*) 5000 UNITS/ML VIAL (FIVE THOUSAND) SUBCUT SCH ×4 (05:38→21:56)
[2019-05-19] MEDS: Levothyroxine INJ* 100 MCG/5 ML VIAL IV SCH (05:40)
[2019-05-19 06:07] LABS: BUN/Creatinine Ratio 15.7 (8-20); Calcium 8.5 mg/dL (8.6-10.3); EGFR African American 66.9 (>60); EGFR Non-African American 55.3 (>60); Magnesium 1.9 mg/dL (1.9-2.7); Phosphorus 2.5 mg/dL (2.5-5.0); Potassium 3.4 mmol/L (3.5-5.0)
[2019-05-19] MEDS: Insulin LISPRO* 1 UNITS UNIT SUBCUT SCH ×4 (07:43→23:56)
[2019-05-19] MEDS: Aspirin EC TAB* 81 MG TAB.EC PO SCH (08:56)
[2019-05-19] MEDS: Benztropine TAB* 1 MG PO SCH ×3 (08:56→21:55)
[2019-05-19] MEDS: Carvedilol TAB* 3.125 MG PO SCH ×2 (08:56→21:55)
[2019-05-19] MEDS: Clopidogrel TAB* 75 MG PO SCH (08:56)
[2019-05-19] MEDS: Cholecalciferol TAB* 1000 UNITS PO SCH (08:56)
[2019-05-19] MEDS: Losartan TAB* 25 MG PO SCH (08:57)
[2019-05-19] MEDS: Ferrous Sulfate TAB* 325 MG PO SCH (08:57)
[2019-05-19] MEDS: Docusate CAP* 100 MG PO SCH ×3 (08:57→21:56)
[2019-05-19] MEDS: lamoTRIgine TAB(*) 25 MG PO SCH ×4 (08:57→21:56)
[2019-05-19] MEDS: risperiDONE TAB* 1 MG PO SCH ×3 (08:58→21:56)
[2019-05-19] MEDS: Pantoprazole TAB * 40 MG TAB PO SCH (08:58)
[2019-05-19] MEDS: Senna TAB 8.6 mg* TAB PO SCH ×3 (08:58→21:56)
[2019-05-19] MEDS: CloZAPine TAB* 25 MG TAB PO SCH ×2 (08:59→21:55)
[2019-05-19] MEDS: Insulin GLARGINE(*) 1 UNITS UNIT SUBCUT SCH ×2 (09:18→23:56)
[2019-05-19 17:40] LABS: Creatine Kinase BB 0 % (0); Creatine Kinase MB 5 % (0)
[2019-05-19] MEDS: Atorvastatin* 80 MG TAB PO SCH ×2 (21:00→21:55)
[2019-05-20] MEDS: Piperacillin/Tazobac ADVAN(*) 3.375 GM in NS 0.9% 100 ML* 100 ML IVPB SCH ×4 (00:42→22:05)
[2019-05-20] MEDS: Heparin VIAL(*) 5000 UNITS/ML VIAL (FIVE THOUSAND) SUBCUT SCH ×3 (05:57→22:22)
[2019-05-20] MEDS: Levothyroxine TAB* 100 MCG TAB PO SCH (05:59)
[2019-05-20] MEDS: Insulin LISPRO* 1 UNITS UNIT SUBCUT SCH ×3 (08:09→18:00)
[2019-05-20] MEDS ORDERED: levETIRAcetam 500 MG IVPREMIX* 500 MG/100 ML BAG IV PRN (09:00)
[2019-05-20] MEDS: lamoTRIgine TAB(*) 25 MG PO SCH ×3 (10:14→22:13)
[2019-05-20] MEDS: Aspirin EC TAB* 81 MG TAB.EC PO SCH (10:16)
[2019-05-20] MEDS: Benztropine TAB* 1 MG PO SCH ×2 (10:16→22:13)
[2019-05-20] MEDS: Insulin GLARGINE(*) 1 UNITS UNIT SUBCUT SCH (10:16)
[2019-05-20] MEDS: Losartan TAB* 25 MG PO SCH (10:17)
[2019-05-20] MEDS: Docusate CAP* 100 MG PO SCH ×2 (10:17→22:13)
[2019-05-20] MEDS: Carvedilol TAB* 3.125 MG PO SCH ×2 (10:17→22:12)
[2019-05-20] MEDS: Ferrous Sulfate TAB* 325 MG PO SCH (10:17)
[2019-05-20] MEDS: CloZAPine TAB* 25 MG TAB PO SCH ×2 (10:17→22:12)
[2019-05-20] MEDS: risperiDONE TAB* 1 MG PO SCH ×2 (10:17→22:13)
[2019-05-20] MEDS: Pantoprazole TAB * 40 MG TAB PO SCH (10:17)
[2019-05-20] MEDS: Clopidogrel TAB* 75 MG PO SCH (10:17)
[2019-05-20] MEDS: Cholecalciferol TAB* 1000 UNITS PO SCH (10:17)
[2019-05-20] MEDS: Senna TAB 8.6 mg* TAB PO SCH ×2 (10:27→22:13)
[2019-05-20] MEDS: levETIRAcetam 500 MG IVPREMIX* 500 MG/100 ML BAG IV SCH (10:27)
--- NOTE | 2019-05-20 15:07 | PN ---
Subjective Date of Service: 05/20/19 Interval History: HOSPITALIST PROGRESS NOTE Patient seen and examined at bedside. Care reviewed and d/w Roosevelt Lopez RN. He smiles when I talk to him, but does not answer my questions. Family History: Unchanged from Admission Social History: Unchanged from Admission Past Medical History: Unchanged from Admission Objective Active Medications: Acetaminophen (Tylenol Tab*) 650 mg PO Q4H PRN PRN Reason: MILD PAIN or TEMP > 100.4 Acetaminophen (Tylenol Supp*) 650 mg [place] Q4H PRN PRN Reason: TEMPERATURE > 100.4 Last Admin: 05/20/19 02:54 Dose: 650 mg Al Hydrox/Mg Hydrox/Simethicone (Maalox Plus*) 30 ml PO Q6H PRN PRN Reason: INDIGESTION Last Admin: 05/19/19 14:01 Dose: 30 ml Albuterol (Ventolin 2.5 Mg/3 Ml Neb.Kaila*) 2.5 mg INH Q4H PRN PRN Reason: SOB/WHEEZING Last Admin: 05/18/19 08:27 Dose: 2.5 mg Aspirin (Aspirin Ec Tab*) 81 mg PO DAILY [facility] Last Admin: 05/20/19 10:16 Dose: Not Given Atorvastatin Calcium (Lipitor*) 80 mg PO BEDTIME [facility]; Protocol Last Admin: 05/19/19 21:55 Dose: Not Given Benztropine Mesylate (Cogentin Tab*) 0.5 mg PO BID [facility] Last Admin: 05/20/19 10:16 Dose: Not Given Bisacodyl (Dulcolax Supp*) 10 mg [place] DAILY PRN PRN Reason: CONSTIPATION Carvedilol (Coreg Tab*) 3.125 mg PO BID [facility] Last Admin: 05/20/19 10:17 Dose: Not Given Cholecalciferol (Vitamin D Tab*) 1,000 units PO DAILY [facility] Last Admin: 05/20/19 10:17 Dose: Not Given Clopidogrel Bisulfate (Plavix Tab*) 75 mg PO DAILY [facility] Last Admin: 05/20/19 10:17 Dose: Not Given Clozapine (Clozapine Tab*) 75 mg PO BID [facility] Last Admin: 05/20/19 10:17 Dose: Not Given Dextrose (Dextrose 50% Vial 50 Ml*) 25 ml IV PUSH .FOR FS < 60 - SS PRN PRN Reason: FS < 60 Docusate Sodium (Colace Cap*) 100 mg PO BID [facility] Last Admin: 05/20/19 10:17 Dose: Not Given Ferrous Sulfate (Ferrous Sulfate Tab*) 325 mg PO DAILY [facility] Last Admin: 05/20/19 10:17 Dose: Not Given Heparin Sodium (Porcine) (Heparin Vial(*)) 5,000 units SUBCUT Q8HR [facility] Last Admin: 05/20/19 14:58 Dose: 5,000 units Piperacillin Sod/Tazobactam (Sod 3.375 gm/ Sodium Chloride) 100 mls @ 25 mls/ hr IVPB Q8H [facility] Last Admin: 05/20/19 06:16 Dose: 25 mls/hr Levetiracetam (Keppra Iv Premix*) 500 mg in 100 mls @ 400 mls/hr IV Q12HR PRN PRN Reason: .SEE INSTRUCTIONS Last Admin: 05/20/19 11:03 Dose: 400 mls/hr Insulin Glargine (Lantus(*)) 15 units SUBCUT Q12HR [facility] Last Admin: 05/20/19 10:16 Dose: Not Given Insulin Human Lispro (Humalog*) 0 units SUBCUT ACHS [facility]; Protocol Last Admin: 05/20/19 10:16 Dose: Not Given Lactulose (Lactulose*) 30 ml PO DAILY PRN PRN Reason: CONSTIPATION Last Admin: 05/19/19 14:01 Dose: 30 ml Lamotrigine (Lamictal Tab(*)) 25 mg PO TID [facility] Last Admin: 05/20/19 10:14 Dose: Not Given Levothyroxine Sodium (Synthroid Tab*) 100 mcg PO DAILY@0600 [facility] Last Admin: 05/20/19 05:59 Dose: 100 mcg Losartan Potassium (Cozaar Tab*) 25 mg PO DAILY [facility] Last Admin: 05/20/19 10:17 Dose: Not Given Ondansetron HCl (Zofran Inj*) 4 mg IV Q4H PRN PRN Reason: NAUSEA/VOMITING Pantoprazole Sodium (Protonix Tab*) 40 mg PO DAILY [facility] Last Admin: 05/20/19 10:17 Dose: Not Given Pharmacy Consult (Zosyn Per Pharmacy*) 1 note FOLLOW UP . PRN PRN Reason: PER PROTOCOL Polyethylene Glycol/Electrolytes (Miralax*) 17 gm PO DAILY PRN PRN Reason: CONSTIPATION Last Admin: 05/19/19 22:11 Dose: 17 gm Risperidone (Risperdal*) 1 mg PO BID [facility] Last Admin: 05/20/19 10:17 Dose: Not Given Senna (Senokot 8.6 Mg Tab*) 2 tab PO BID [facility] Last Admin: 05/20/19 10:27 Dose: Not Given Vital Signs - 8 hr 05/20/19 08:00 Temperature 96.9 F Pulse Rate 80 Respiratory 22 Rate Blood Pressure 108/66 (mmHg) O2 Sat by Pulse 100 Oximetry Oxygen Devices in Use Now: None Appearance: Elderly gentleman lying in bed in NAD Eyes: No Scleral Icterus Ears/Nose/Mouth/Throat: Mucous Membranes Moist Neck: Trachea Midline Respiratory: Symmetrical Chest Expansion and Respiratory Effort, Clear to Auscultation Cardiovascular: RRR - Normal S1 and S2 Abdominal: NL Sounds; No Tenderness; No Distention Neurological: - - Opens eyes and smiles, but does not follow commands Result Diagrams: 05/18/19 05:18 05/19/19 05:30 Assess/Plan/Problems-Billing Assessment: Mr Bell is a 73 yo M who has a h/o bipolar disorder with severe annabelle and psychosis, type II DM, HTN, hypothyroidism, seizure disorder and antiphospholipid Ab syndrome who presented to [facility] with c/o abdominal pain and was found to be having an acute OR. - Patient Problems (1) NSTEMI (non-ST elevated myocardial infarction) Comment: - He refused all PO meds this AM, but accepted Aspirin yesterday. (2) V-tach Comment: - Continue Coreg as he agrees to take it. - Has removed Tele pack multiple times - will d/c it. (3) Seizure disorder Comment: - Pt is on IV keppra and lamictal as he is taking his oral meds very erratically. Once regularly taking oral meds, could stop Keppra. (4) Schizoaffective disorder Comment: - Psych input appreciated - long history of schizoaffective disorder non-adherent with clozapine - recommended dose of 75mg as patient tolerates it. (5) DVT prophylaxis Comment: - SQ heparin. (6) DNR (do not resuscitate) Status and Disposition: Inpatient. D/w Palliative care, will d/w niece - he may do better at [facility] in a familiar environment. Does not qualify for Hospice at this time, but can be comfort care with limited interventions and follow up his progress.
[2019-05-20] MEDS: Atorvastatin* 80 MG TAB PO SCH (22:12)
[2019-05-21] MEDS: Insulin LISPRO* 1 UNITS UNIT SUBCUT SCH ×3 (00:18→13:37)
[2019-05-21] MEDS: Insulin GLARGINE(*) 1 UNITS UNIT SUBCUT SCH ×2 (00:19→11:16)
[2019-05-21] MEDS: Albuterol 2.5 MG/3 ML NEB.SOL* (0.083%) INH PRN (00:52)
[2019-05-21] MEDS: Heparin VIAL(*) 5000 UNITS/ML VIAL (FIVE THOUSAND) SUBCUT SCH (05:17)
[2019-05-21] MEDS: Piperacillin/Tazobac ADVAN(*) 3.375 GM in NS 0.9% 100 ML* 100 ML IVPB SCH (05:17)
[2019-05-21] MEDS: Levothyroxine TAB* 100 MCG TAB PO SCH (05:18)
[2019-05-21] MEDS ORDERED: Nitroglycerin TAB 0.4 MG* 0.4 MG TAB SL PRN (06:47)
[2019-05-21] MEDS: Benztropine TAB* 1 MG PO SCH ×2 (08:30→08:46)
[2019-05-21] MEDS: Ferrous Sulfate TAB* 325 MG PO SCH ×2 (08:32→08:50)
[2019-05-21] MEDS: CloZAPine TAB* 25 MG TAB PO SCH (08:32)
[2019-05-21] MEDS: Senna TAB 8.6 mg* TAB PO SCH ×2 (08:32→08:50)
[2019-05-21] MEDS: Docusate CAP* 100 MG PO SCH ×2 (08:33→08:50)
[2019-05-21] MEDS: Clopidogrel TAB* 75 MG PO SCH (08:33)
[2019-05-21] MEDS: risperiDONE TAB* 1 MG PO SCH ×2 (08:33→08:50)
[2019-05-21] MEDS: lamoTRIgine TAB(*) 25 MG PO SCH (08:33)
[2019-05-21] MEDS: Cholecalciferol TAB* 1000 UNITS PO SCH ×2 (08:33→08:50)
[2019-05-21] MEDS: Aspirin EC TAB* 81 MG TAB.EC PO SCH (08:33)
[2019-05-21] MEDS: Pantoprazole TAB * 40 MG TAB PO SCH (08:33)
[2019-05-21] MEDS: Carvedilol TAB* 3.125 MG PO SCH ×2 (08:33→08:49)
[2019-05-21] MEDS: Losartan TAB* 25 MG PO SCH ×2 (08:33→08:50)
[2019-05-21] MEDS ORDERED: Acetaminophen ADULT LIQ* 650 MG/20.3 ML UDC PO PRN (09:00)
[2019-05-21 12:17] VITALS: BP 111/68
--- NOTE | 2019-05-21 13:17 | DS ---
CC: Dr. Monica Flores [facility]; Dr. Cantu * DATE OF ADMISSION: 05/13/2019. DATE OF DISCHARGE: 05/21/2019. PRIMARY CARE PHYSICIAN: Nati Parada. ATTENDING PHYSICIAN WHILE IN THE HOSPITAL: Dr. Dafne Cantu * (dictated by CHAR Locke). PRIMARY DISCHARGE DIAGNOSES: NSTEMI, new heart failure reduced ejection fraction, aspiration pneumonia with acute hypoxic respiratory failure. SECONDARY DISCHARGE DIAGNOSES: Bipolar disorder with severe psychosis, diabetes mellitus type 2, dysphagia, hypertension, hypothyroidism, seizure disorder, history of diverticular bleed, urinary retention, antiphospholipid antibody syndrome, idiopathic muscle weakness, GERD, chronic constipation, blindness. STUDIES DONE WHILE IN THE HOSPITAL: 1. EKG from 05/13/2019 shows Q waves inferior leads, poor R wave progression, possible minimal ST segment elevation in V2, but no other leads, no ST segment elevation or depression, no hypertrophy, possible left ventricular enlargement, QTC of 421, rate of 85. 2. Abdomen and pelvis CT, reads as: Stool throughout the colon. No obstruction is noted. No evidence of obstructive uropathy. Atherosclerotic aorta is noted. There is cholelithiasis, hepatic steatosis and bibasilar atelectasis present. 3. Transthoracic echocardiogram, read as: Systolic function is moderately reduced. Apical akinesis extending to the septum and lateral wall mid cavity. Doppler parameters are consistent with elevated ventricular end-diastolic pressure. Right ventricle systolic function is normal. Mitral valve: Mild regurgitation. Pulmonary arteries: Systolic pressure can not be accurately estimated. Compared with prior echocardiogram of 11/12/2018, apical akinesis is new. Ejection fraction has decreased from 50 to 55%, valve function is stable. 4. Chest x-ray from 05/13/2019, read as: Low lung volumes, pulmonary interstitial edema. 5. Chest x-ray from 05/17/2019, read as: Increased airspace opacification the right lower and upper lung zones, similar cardiomegaly with small pleural effusions and interstitial pulmonary edema. MEDICATIONS AT DISCHARGE: 1. Lamotrigine 25 mg p.o. t.i.d. 2. Benztropine 0.5 mg p.o. b.i.d. 3. Levothyroxine 100 mcg p.o. daily. 4. Vitamin D 1,000 units p.o. daily. 5. Furosemide 20 mg p.o. daily. 6. MiraLax 17 gm p.o. daily as needed. 7. Aspirin 81 mg p.o. daily. 8. Dulcolax Suppository 10 mg p.o. daily. 9. Insulin Lispro 8 units p.o. t.i.d. with meals. 10. Risperidone 1 mg p.o. b.i.d. 11. Omeprazole 20 mg p.o. daily. 12. Ferrous Sulfate one tab p.o. daily. 13. Tylenol 650 mg p.o. q.4 hours as needed. 14. Docusate 100 mg p.o. b.i.d. 15. Senna two tabs p.o. b.i.d. 16. Lactulose 30 ml p.o. daily as needed 17. Fleet enema one enema per rectum as needed daily. 18. Carvedilol 3.125 mg p.o. b.i.d. 19. Clopidogrel 75 mg p.o. daily. 20. Insulin Glargine 15 units subcutaneous q.12 hours. 21. Losartan 25 mg p.o. daily. 22. Augmentin 875 mg p.o. b.i.d. times 10 doses. 23. Lipitor 80 mg p.o. daily. 24. Clozapine 75 mg p.o. b.i.d. 25. Nitroglycerin 0.4 mg sublingual q.5 minutes as needed for chest pain. 26. Morphine Concentrate 5 mg sublingual q.2 hours as needed for severe pain. MEDICATIONS DISCONTINUED AT DISCHARGE: 1. Amitiza 25 mg p.o. b.i.d. 2. Pravastatin 20 mg p.o. daily. 3. Milk of Magnesia 30 ml p.o. q.4 hours as needed. 4. Insulin Lispro 12 units subcutaneous with meals. 5. Zofran 4 mg p.o. q.12 as needed. 6. Maalox 30 ml p.o. q.6 hours as needed. 7. Metoprolol Succinate 12.5 mg p.o. daily. 8. Clozapine 100 mg p.o. in the morning. 9. Clozapine 200 mg p.o. at bedtime. 10. Insulin Glargine 35 units subcutaneous daily. 11. Insulin Glargine 45 units subcutaneous nightly. HOSPITAL COURSE: This is a brief summary of the patient's presentation. For more details, please see the history and physical from CHAR Diehl on . In brief, the patient is a 73-year-old male with a past medical history significant for the above who has been at [facility] after being transferred from a replaced by [facility] due to severe debility from his mental health and psychosis, which is much worse when he is unable to take his medications. The patient on the day of his admission had severe abdominal pain and what was described as abdominal pain and vomiting; however, it appeared to be chest pain on arrival to the ED. In the emergency department, he was given a beta gonsalo and nitroglycerin and troponin was found to be severely elevated. The patient' s chest pain did resolve. The patient was started on Metoprolol, IV Heparin, an ARB and was loaded with Plavix. The patient's troponin peaked at 38 on the day after his admission. The patient's chest pain continued and was severe. The patient's treatment was discussed with him and his healthcare proxy and they opted against a cardiac catheterization. The patient did refuse many of his oral medications and as many were given IV as possible, but the patient's care was significantly hampered by this. The patient did receive several doses of p.r. aspirin and was loaded with p.r. aspirin. The patient's mental state was very concerning and Psychiatry was consulted who recommended resuming Clozapine at a lower dose based on how long the patient has been off the medication and when he was able to take more medications, he was able to be restarted on 75 mg twice daily which he has been taking sporadically. Due to the patient's noncompliance and poor prognosis, the patient was seen in consultation by Dr. Mary Jane Gaxiola of Palliative Care who deemed the patient was not eligible for hospice. After consultation with the jewel bearing grinder, it was believed the patient was declining and the goal would be for comfort; however, there were no clear goals set with regards to when the patient's healthcare proxy wanted him to sent back to the hospital. The patient would be a DNR/DNI. The patient, on 05/17/2019, was found to be markedly hypoxic and had an episode of ventricular tachycardia and was loaded with Amiodarone. He was transferred to the ICU. The patient during his hospitalization was given IV Keppra and Lamictal given his noncompliance with his oral medications. The patient did not have any witnessed seizures. The patient was able to transfer out of the ICU on 05/18/2019. The patient was able to take some of his medications sporadically over the last several days of his hospitalization. The patient was started on Zosyn for his aspiration pneumonia which he tolerated well. The patient saturating near 100 percent on 4 to 6 liters of oxygen towards the end of his hospitalization and this was actively being weaned at the time of discharge. Given the patient's lack of cooperation with care, the main goal of his care being comfort and the belief that he might do better at a more familiar situation at [facility], the patient was planned to be discharged to [facility] on 05/21/2019. PHYSICAL EXAMINATION ON THE DAY OF DISCHARGE: General: The patient is a 73- year- old male who appears stated age and sitting comfortably in bed, in significant distress, kicking around and mumbling to himself. Vital Signs: Temperature 98.6, pulse 75, respiratory rate 16, oxygen saturation 100 percent on 3 liters nasal cannula, blood pressure 110/90. HEENT: Head normocephalic, atraumatic. Sclerae anicteric. No conjunctival injection. Nasal mucosa moist. Oral mucosa moist. No oropharyngeal erythema, discharge, or exudate. Neck: Supple, nontender. No lymphadenopathy. No carotid bruits auscultated. No JVD. Cardiac: Regular rate and rhythm. No clicks, murmurs, gallops, or rubs. Pulses are 2+ in dorsalis pedis, posterior tibialis, and radial areas. Respiratory: Limited exam. No adventitious lung sounds heard. Abdomen: Soft , nontender, and nondistended. Bowel sounds present and normoactive in all four quadrants. No hepatosplenomegaly. No abdominal bruits auscultated. No hepatojugular reflux. Genitourinary: No suprapubic or CVA tenderness. Skin: Clean, dry, and intact. No rash. Neuro: Difficult to assess. Moving all four extremities symmetrically. Psychiatric: Very difficult to communicate with, acting erratically. Essentially no coherent conversation is able to be had. DISCHARGE PROBLEM BY PLAN: 1. NSTEMI, New heart failure with reduced ejection fraction: The patient has been medically optimized for this as much as possible. The patient is currently on aspirin, Plavix, Coreg, Lipitor, and received two days of IV Heparin while in the hospital. The patient continues to have intermittent chest pain, but this has resolved most recently without intervention. The patient will have Nitroglycerin sublingually, as well as Morphine sublingually for severe chest pain. The patient's chest pain, per the daughter's request, should be treated as much as possible at [facility] and then she should be called before he is sent to the hospital. With regards to the patient's heart failure, the patient will be continued on Furosemide which he has stabilized on previous to his admission. The patient has also been started on Losartan and Carvedilol. Spironolactone may be indicated based on his EF, though additional blood pressure agents will likely cause more harm than good. History moderate for fluid overload and be given diuretics as needed. 2. Bipolar disorder: The patient will be continued on Clozapine 75 mg daily. If he is able to tolerate these more consistently, he should have his dose escalated to his previous dose. The patient will be continued on Risperidone and his Cogentin. The patient currently has a very difficult psychiatric situation which is the main obstacle standing in the way of his care. 3. Goals of care: The patient's niece believes that he has given up on life and it not taking his meds because he is tired of living; however, she wants to wait to see if he stabilizes more at the alf before further discussing end of life care or hospice. If the patient is unable to take his medications consistently at the alf and continues to decline, hospice should be consulted for his eligibility. 4. Diabetes mellitus type 2: The patient is not eating well. The patient has had a significant decrease in his long-acting and short-acting insulin as above. The patient should have fingersticks three times daily and his mealtime insulin should not be given if he does not eat greater than one-half of his meal. 5. Chronic constipation: Continue fleet enema, Senna, lactulose. Resume Amitiza if patient is able to tolerate meds routinely. 6. Iron deficiency: Continue Ferrous Sulfate. 7. Aspiration pneumonia: The patient will be continued on Augmentin for five more days, 875 mg twice daily. The patient's oxygen should be weaned as able. 8. Hyperlipidemia: The patient is on a high dose of statin therapy as above. DISPOSITION: To [facility]. CONDITION ON DISCHARGE: Guarded. DIET: Regular, unrestricted. TIME SPENT: Approximately 60 minutes were spent on the discharge of this patient, 30 of which was spent [id number] with the patient and his healthcare proxy obtaining history and physical and discussing treatment plan. CHAR LOCKE [id number]/CPS #: [id number]
== END 2019-05-21 14:06 | DRG 280 ==
LOC: ED 09:00 → MEDTELE 11:59 → ICU 20:44 → MEDTELE 05-15 03:39 → ICU 05-17 05:40 → MEDTELE 05-18 21:15
PROVIDERS: ADMIT Internal Medicine; ATTEND Internal Medicine
DX: I21.4 Non-ST elevation (NSTEMI) myocardial infarction (principal); J69.0 Pneumonitis due to inhalation of food and vomit; J96.01 Acute respiratory failure with hypoxia; I47.2 Ventricular tachycardia; I50.23 Acute on chronic systolic (congestive) heart failure; E78.00 Pure hypercholesterolemia, unspecified; G47.30 Sleep apnea, unspecified; K21.9 Gastro-esophageal reflux disease without esophagitis; H54.8 Legal blindness, as defined in USA; G40.909 Epilepsy, unspecified, not intractable, without status epilepticus; E03.9 Hypothyroidism, unspecified; I11.0 Hypertensive heart disease with heart failure; K59.09 Other constipation; R33.9 Retention of urine, unspecified; L25.9 Unspecified contact dermatitis, unspecified cause; Z66 Do not resuscitate; F25.0 Schizoaffective disorder, bipolar type; E11.65 Type 2 diabetes mellitus with hyperglycemia; E61.1 Iron deficiency; M62.81 Muscle weakness (generalized); Z91.14 Patient's other noncompliance with medication regimen; Z88.1 Allergy status to other antibiotic agents; Z88.8 Allergy status to other drugs, medicaments and biological substances; Z79.890 Hormone replacement therapy; Z79.82 Long term (current) use of aspirin; Z79.4 Long term (current) use of insulin; Z79.02 Long term (current) use of antithrombotics/antiplatelets
CPT/HCPCS: 36415; 71045; 74177; 80048; 80053; 81003; 82550; 82553; 82947; 83036; 83605; 83690; 83735; 83880; 84100; 84439; 84443; 84484; 85025; 85730; 86140; 87040; 87086; 87641; 93005; 93306; 94640; 99285; A9270-GY; C8929; J0282; J0610; J1644; J1940; J2270; J2543; J3490; Q9967